=== PATIENT | female | born 1940 | race Caucasian/White ===

== ENCOUNTER 2016-08-15 07:31 | Emergency (ER) | payer MEDICARE, BC, MEDICAID ==
--- NOTE | 2016-08-15 08:10 | EDM.PDOC ---
ED HPI GENERAL MEDICAL PROBLEM - General Chief Complaint: Respiratory Problem Stated Complaint: SHORTNESS OF BREATH Time Seen by Provider: 08/15/16 08:00 Source of Information: Reports: Patient, RN Notes Reviewed History Limitations: Reports: No Limitations - History of Present Illness INITIAL COMMENTS - FREE TEXT/NARRATIVE: 75-year-old female presents emergency department day complaint of shortness of breath, she has a known history of lung mass suspicious for neoplasm however no pathology has been obtained she has elected to proceed nonintervention. Does have a known history of congestive heart failure as well. She states that last night she awoke feeling very short of breath she's had difficulty maintaining her breath this morning as well denies any fevers cough sputum production chest. Nausea or vomiting - Related Data Allergies Allergy/AdvReac Type Severity Reaction Status Date / Time cephalexin monohydrate Allergy Seizure Verified 08/15/16 07:40 [From Keflex] esomeprazole [From Nexium] Allergy Cannot Verified 08/15/16 07:40 Remember Home Meds: Home Meds ALPRAZolam [Alprazolam] 1 mg PO TID 07/23/14 [History] Amitriptyline HCl 50 mg PO BEDTIME 07/23/14 [History] Aspirin [Adult Low Dose Aspirin EC] 81 mg PO DAILY 07/23/14 [History] Carvedilol [Coreg] 6.25 mg PO BIDMEALS 07/23/14 [History] Cholecalciferol (Vitamin D3) [Vitamin D3] 5,000 unit PO DAILY 07/23/14 [History] Enalapril Maleate 2.5 mg PO BEDTIME 07/23/14 [History] Fluticasone/Salmeterol [Advair 100-50] 1 puff IH BID 07/23/14 [History] Folic Acid 1 mg PO DAILY 07/23/14 [History] Insulin Glarg,Human.Rec.Analog [Lantus] 40 units SQ BEDTIME 07/23/14 [History] Levothyroxine [Levothroid] 137 mcg PO DAILY 07/23/14 [History] Omeprazole 20 mg PO DAILY 07/23/14 [History] Ranitidine HCl [Zantac] 150 mg PO BID 07/23/14 [History] Simvastatin [Zocor] 20 mg PO BEDTIME 07/23/14 [History] Sotalol [Betapace] 80 mg PO BID 07/23/14 [History] Spironolactone [Aldactone] 25 mg PO DAILY 07/23/14 [History] Sucralfate [Carafate] 1 gm PO TID 07/23/14 [History] Nitrofurantoin Macrocrystal [Nitrofurantoin] 50 mg PO DAILY 10/20/15 [History] Venlafaxine HCl [Venlafaxine ER] 75 mg PO DAILY 10/20/15 [History] Past Medical History HEENT History: Reports: Cataract, Hard of Hearing Cardiovascular History: Reports: Arrhythmia, Automatic Implantable Cardioverter Defibrillators, CAD, Heart Failure, High Cholesterol, Hypertension, OR, Pacemaker, SOB on Exertion Other Cardiovascular History: defibulater Respiratory History: Reports: Asthma, COPD, Pneumonia, Recurrent, Sleep Apnea, SOB Other Respiratory History: oxygen at bedtime Gastrointestinal History: Reports: Cholelithiasis, Chronic Constipation, GERD Genitourinary History: Reports: Chronic Renal Insuffiency, Urinary Incontinence 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: Musculoskeletal History: Reports: Arthritis, Back Pain, Chronic, Fracture Neurological History: Reports: CVA, Vertigo Psychiatric History: Reports: Anxiety, Depression, Panic Attack Endocrine/Metabolic History: Reports: Diabetes, Type II, Hypothyroidism, Obesity /BMI 30+ Oncologic (Cancer) History: Reports: Lung Other Oncologic History: mass - Infectious Disease History Infectious Disease History: Reports: C-Difficile - Past Surgical History HEENT Surgical History: Reports: Cataract Surgery Cardiovascular Surgical History: Reports: Percutaneous Transluminal Angioplasty GI Surgical History: Reports: Colonoscopy, Hernia Repair/Other Female Surgical History: Reports: Hysterectomy Neurological Surgical History: Reports: None Social & Family History - Family History Cardiac: Reports: CAD, Hypertension Respiratory: Reports: COPD : Reports: Nephritis Musculoskeletal: Reports: Arthritis - Tobacco Use Smoking Status *Q: Former Smoker Years of Tobacco use: 40 Packs/Tins Daily: 1 Used Tobacco, but Quit: Yes Month Tobacco Last Used: 10 years ago Second Hand Smoke Exposure: No - Caffeine Use Caffeine Use: Reports: Soda Other Caffeine Use: 1 pot coffee per day - Alcohol Use Days Per Week of Alcohol Use: 0 - Recreational Drug Use Recreational Drug Use: No ED ROS GENERAL - Review of Systems Review Of Systems: See Below Constitutional: Denies: Fever, Chills, Diaphoresis HEENT: Reports: No Symptoms Respiratory: Reports: Shortness of Breath. Denies: Cough, Sputum, Hemoptysis Cardiovascular: Reports: Dyspnea on Exertion. Denies: Chest Pain GI/Abdominal: Reports: No Symptoms : Reports: No Symptoms Musculoskeletal: Reports: No Symptoms Skin: Reports: No Symptoms Neurological: Reports: No Symptoms ED EXAM, GENERAL - Physical Exam Exam: See Below Free Text/Narrative:: General: Female, not in any distress, alert and oriented x3 HEENT: head is atraumatic normocephalic, eyes pupils equal round reactive to light, sclera clear no conjunctivitis appreciated. Ears tympanic membranes clear and haro landmarks and light reflex are present bilaterally canals are clear. Nose no septal deviation, nares are clear, no blood present. Mouth mucosa is moist and pink no erythema or exudate noted in soft palate, tongue is midline uvula is midline, dentition is intact. Neck: Supple no thyromegaly no tracheal deviation. Nodes: Cervical nodes subclavicular nodes nontender no palpable lymphadenopathy noted. Lungs: Breath sounds are distant on appreciate any adventitious noises CV: Regular rate and rhythm S1 and S2 appreciated no murmurs rubs or gallops noted. Abdomen: Soft, nontender, no palpable masses or organomegaly appreciated, no distention no guarding bowel sounds are present, . Neuro: Cranial nerves II through XII grossly intact Skin: Warm and dry, intact Extremities: No lower extremity edema appreciated, pedal pulse is +2. Course - Vital Signs Last Recorded V/S: Last Vital Signs Temp 98.3 F 08/15/16 07:39 Pulse 84 08/15/16 08:38 Resp 17 08/15/16 08:38 BP 137/78 08/15/16 08:38 Pulse Ox 91 L 08/15/16 08:38 - Orders/Labs/Meds Orders: Active Orders 24 hr Category Date Time Status Cardiac Monitoring [RC] .As Directed Care 08/15/16 08:07 Active EKG Documentation Completion [RC] ASDIRECTED Care 08/15/16 08:07 Active EKG 12 Lead [EK] Stat Ther 08/15/16 08:07 Ordered Labs: Laboratory Tests 08/15/16 08/15/16 Range/Units 08:21 08:21 WBC 5.1 (4.5-11.0) K/uL RBC 4.08 (3.30-5.50) M/uL Hgb 12.3 (12.0-15.0) g/dL Hct 35.6 L (36.0-48.0) % MCV 87 (80-98) fL MCH 30 (27-31) pg MCHC 35 (32-36) % Plt Count 184 (150-400) K/uL Neut % (Auto) 71 H (36-66) % Lymph % (Auto) 12 L (24-44) % Spencer % (Auto) 11 H (2-6) % Eos % (Auto) 5 H (2-4) % Baso % (Auto) 1 (0-1) % Sodium 130 L (140-148) mmol/L Potassium 4.3 (3.6-5.2) mmol/L Chloride 93 L (100-108) mmol/L Carbon Dioxide 28 (21-32) mmol/L Anion Gap 13.3 (5.0-14.0) mmol/L BUN 10 (7-18) mg/dL Creatinine 1.0 (0.6-1.0) mg/dL Est Cr Clr Drug Dosing 35.99 mL/min Estimated GFR (MDRD) 54 L (>60) Glucose 205 H (74-106) mg/dL Calcium 8.6 (8.5-10.1) mg/dL Total Bilirubin 0.4 (0.2-1.0) mg/dL AST 24 (15-37) U/L ALT 22 (12-78) U/L Alkaline Phosphatase 77 (46-116) U/L Troponin I < 0.017 (0.000-0.056) ng/mL Etc-I-Ziorwnhhajv Pept 169 H (5-125) pg/mL Total Protein 7.9 (6.4-8.2) g/dL Albumin 3.0 L (3.4-5.0) g/dL Globulin 4.9 H (2.3-3.5) g/dL Albumin/Globulin Ratio 0.6 L (1.2-2.2) Departure - Departure Time of Disposition: 09:17 Disposition: Home, Self-Care 01 Condition: Good Clinical Impression: Anxiety - Discharge Information Forms: ED Department Discharge Additional Instructions: Use Xanax as needed for whenever you feel extremely short of breath and your anxiety is elevated, Please followup with your primary care provider in 3-5 days if not better, please call return to the emergency department with worsening of symptoms. - My Orders Last 24 Hours: My Active Orders 08/15/16 08:07 Cardiac Monitoring [RC] .As Directed EKG Documentation Completion [RC] ASDIRECTED EKG 12 Lead [EK] Stat - Assessment/Plan Last 24 Hours: My Active Orders 08/15/16 08:07 Cardiac Monitoring [RC] .As Directed EKG Documentation Completion [RC] ASDIRECTED EKG 12 Lead [EK] Stat Plan: Assessment Acuity = acute Site and laterality = dyspnea complicated patient with history of chronic obstructive pulmonary disease, coronary artery disease, lung mass probable malignancy and anxiety Etiology = suspicious for panic attack Manifestations = none Location of injury = home Lab values = CBC unremarkable, sodium low at 1:30 consistent hyponatremia BNP mildly elevated 169 troponin is negative albumin low at 3.0 consistent hypoalbuminemia, EKG demonstrates a sinus rhythm no significant ST changes, chest x-ray does show expanding mass otherwise no acute process Plan I did review lab results EKG and chest x-ray results with her she does use Xanax at home will add additional Xanax that she can use on as-needed basis when she feels short of breath Patient was in agreement with the plan all questions were answered, they were instructed to return to the emergency department or call for worsening symptoms. This note was dictated using [facility] voice recognition software please call with any questions.
[2016-08-15 08:40] VITALS: BP 137/78
--- NOTE | 2016-08-15 08:59 | CR ---
Chest 2V HISTORY: Short of breath COMPARISON: 02/11/2016 FINDINGS: Right upper lobe lung mass has increased in size now measuring approximately 4.5 cm in jennifer meter. No acute infiltrate is identified. Mild cardiomegaly is stable. Atherosclerotic aorta is rede monstrated. No vascular redistribution or pleural fluid is seen. AV sequential pacemaker/AICD is sta ble. IMPRESSION: Interval increase in size of right upper lobe lung mass suspicious for malignancy. Mild cardiomegaly without evidence for decompensation. Stable pacemaker/AICD and lead wires. No other acu te chest abnormality or significant interval change is identified.
== END 2016-08-15 09:28 | disposition home or self-care (01) ==
LOC: JP.ED 07:31
DX: F41.9 Anxiety disorder, unspecified (principal); I12.9 Hypertensive chronic kidney disease with stage 1 through stage 4 chronic kidney disease, or unspecified chronic kidney disease; N18.9 Chronic kidney disease, unspecified; J45.909 Unspecified asthma, uncomplicated; J44.9 Chronic obstructive pulmonary disease, unspecified; K21.9 Gastro-esophageal reflux disease without esophagitis; E11.9 Type 2 diabetes mellitus without complications; I25.2 Old myocardial infarction; E03.9 Hypothyroidism, unspecified; E66.9 Obesity, unspecified; Z98.890 Other specified postprocedural states; Z86.73 Personal history of transient ischemic attack (TIA), and cerebral infarction without residual deficits; Z90.710 Acquired absence of both cervix and uterus; Z79.4 Long term (current) use of insulin; Z79.899 Other long term (current) drug therapy; Z79.82 Long term (current) use of aspirin; Z88.1 Allergy status to other antibiotic agents; Z88.8 Allergy status to other drugs, medicaments and biological substances
CPT/HCPCS: 36415; 71020; 71020-26; 80053; 83880; 84484; 85025; 93005; 93010; 99283; 99285-25

== ENCOUNTER 2016-11-25 07:31 | Inpatient (IN) | payer MEDICARE, BC, MEDICAID ==
[2016-11-25] MEDS ORDERED: Rocuronium 50 MG/5 ML Vial ONE (07:44)
[2016-11-25] MEDS ORDERED: Ondansetron 4 MG/2 ML SDV ONE (07:44)
[2016-11-25] MEDS ORDERED: Neostigmine Methylsulfate 1 MG/ML 5 ML Syringe ONE (07:44)
[2016-11-25] MEDS ORDERED: Succinylcholine 200 MG/10 ML MDV ONE (07:44)
[2016-11-25] MEDS ORDERED: Dexamethasone 4 MG/ML SDV ONE (07:44)
[2016-11-25] MEDS ORDERED: Glycopyrrolate 0.2 MG/ML 5 ML MDV ONE (07:44)
[2016-11-25] MEDS ORDERED: Propofol 200 MG/20 ML SDV ONE (07:44)
[2016-11-25] MEDS ORDERED: Heparin Sodium 5,000 Units/ML Vial ONE (07:45)
[2016-11-25] MEDS ORDERED: Gabapentin 100 MG Cap PO ONE (07:45)
[2016-11-25] MEDS ORDERED: Lidocaine 1% 2 ML ONE (07:45)
[2016-11-25] MEDS ORDERED: Albuterol 0.083% 2.5 MG/3 ML Neb Soln ONE (07:55)
[2016-11-25] MEDS ORDERED: Naloxone 0.4 MG/ML SDV IVPUSH PRN (09:00)
[2016-11-25] MEDS ORDERED: Scopolamine 1.5 MG Transdermal Patch TOP SCH (09:00)
[2016-11-25] MEDS ORDERED: Dextrose 5%-0.9% NaCl 1,000 ML IV SCH (09:15)
[2016-11-25] MEDS ORDERED: Lactated Ringers 1,000 ML ONE (09:23)
[2016-11-25] MEDS ORDERED: Lidocaine 2% Viscous Solution 15 ML Cup ONE (09:49)
[2016-11-25] MEDS ORDERED: Albuterol/Ipratropium 3.0-0.5 MG/3 ML Neb Soln NEB ONE (10:00)
[2016-11-25] MEDS ORDERED: Levofloxacin/Dextrose 5%-Water 500 MG in Premix Bag 1 BAG IV ONE (10:00)
[2016-11-25] MEDS ORDERED: Dextrose 5%-Lactated Ringers 1,000 ML IV SCH (10:00)
[2016-11-25] MEDS ORDERED: Meropenem 500 MG SDV IRR ONE (11:40)
[2016-11-25] MEDS ORDERED: Bupivacaine 0.5%/EPINEPHrine 1:200,000 50 ML MDV INJECT ONE (12:00)
[2016-11-25] MEDS ORDERED: Bupivacaine 0.5%/EPINEPHrine 1:200,000 50 ML MDV ONE (12:03)
[2016-11-25] MEDS ORDERED: Sodium Chloride 0.9% 10 ML ONE (12:03)
[2016-11-25] MEDS ORDERED: Meropenem 500 MG SDV ONE (12:03)
[2016-11-25] MEDS ORDERED: Insulin Aspart 100 Units/ML 3 ML Pen SUBCUT SCH (12:45)
--- NOTE | 2016-11-25 14:04 | CR ---
Chest 1V Frontal INDICATION: PLACEMENT TLSC AND CHEST TUBE RIGHT SIDE COMPARISON: CT chest previous day FINDINGS: Single AP portable chest. Right thoracotomy. Small right apical pneumothorax. Chest tubes in place. Skin priscila. No other jackson ge in the chest.
[2016-11-25] MEDS ORDERED: diphenhydrAMINE 50 MG/ML SDV IVPUSH PRN (14:05)
[2016-11-25] MEDS ORDERED: Glucose Gel 15 GM in 37.5 GM Tube PO PRN (14:07)
[2016-11-25] MEDS ORDERED: Glucagon,Human Recombinant 1 MG Vial IM PRN (14:07)
[2016-11-25] MEDS ORDERED: 50% Dextrose in Water 50 ML Syringe IVPUSH PRN (14:07)
[2016-11-25] MEDS ORDERED: Albuterol/Ipratropium 3.0-0.5 MG/3 ML Neb Soln INH PRN (14:13)
[2016-11-25] MEDS: Sodium Chloride 0.9% 1,000 ML IV SCH (14:43)
[2016-11-25] MEDS: fentaNYL 2,500 MCG in Sodium Chloride 0.9% 200 ML EPIDUR SCH (15:07)
[2016-11-25] MEDS: VERIFY SCOP PATCH TOP SCH (15:26)
[2016-11-25] MEDS: Pantoprazole 40 MG Vial IV SCH (15:34)
[2016-11-25] MEDS: Albuterol/Ipratropium 3.0-0.5 MG/3 ML Neb Soln INH SCH ×2 (15:34→21:04)
[2016-11-25] MEDS: Heparin Sodium 5,000 UNITS in Sodium Chloride 0.9% 500 ML IV SCH (16:12)
[2016-11-25] MEDS: Insulin Aspart 100 Units/ML 3 ML Pen SUBCUT PRN ×2 (17:15→21:02)
[2016-11-25] MEDS ORDERED: Lactated Ringers 500 ML IV SCH (17:15)
[2016-11-25] MEDS: DEXTROSE IV SCH (18:19)
[2016-11-25] MEDS: NACL IV SCH (18:19)
[2016-11-25] MEDS: NALOXONE IV SCH (18:19)
[2016-11-25] MEDS ORDERED: Heparin Sodium 5,000 UNITS in Sodium Chloride 0.9% 500 ML IV SCH (18:30)
[2016-11-25] MEDS: Ondansetron 4 MG/2 ML SDV IV PRN (20:25)
[2016-11-25] MEDS ORDERED: Insulin Detemir 100 Units/ML 3 ML Pen SUBCUT ONE (21:00)
[2016-11-25] MEDS: Spironolactone 25 MG Tab PO SCH (21:04)
[2016-11-25] MEDS: Sotalol 80 MG Tab PO SCH (21:05)
[2016-11-25] MEDS: Enalapril 5 MG Tab PO SCH (21:06)
[2016-11-25] MEDS: Carvedilol 6.25 MG Tab PO SCH (21:06)
[2016-11-25] MEDS: Gabapentin 100 MG Cap PO SCH (21:06)
[2016-11-25] MEDS: ADVAIR INH SCH (21:07)
[2016-11-26] MEDS: Sodium Chloride 0.9% 1,000 ML IV SCH ×2 (03:18→16:32)
[2016-11-26] MEDS: NACL IV SCH ×2 (04:13→15:14)
[2016-11-26] MEDS: DEXTROSE IV SCH ×2 (04:13→15:14)
[2016-11-26] MEDS: NALOXONE IV SCH ×2 (04:13→15:14)
[2016-11-26] MEDS: ADVAIR INH SCH ×2 (07:15→20:54)
[2016-11-26] MEDS: Albuterol/Ipratropium 3.0-0.5 MG/3 ML Neb Soln INH SCH ×4 (07:15→20:52)
[2016-11-26] MEDS: Levothyroxine 100 MCG, Levothyroxine 25 MCG PO SCH ×2 (07:40)
[2016-11-26] MEDS ORDERED: Lactated Ringers 500 ML IV SCH ×2 (09:00→13:30)
[2016-11-26] MEDS: Aspirin 81 MG Tab.EC PO SCH (09:04)
[2016-11-26] MEDS: Docusate Sodium 100 MG Cap PO SCH ×2 (09:04→20:53)
[2016-11-26] MEDS: Venlafaxine 75 MG Cap.ER PO SCH (09:04)
[2016-11-26] MEDS: VERIFY SCOP PATCH TOP SCH (09:05)
[2016-11-26] MEDS: Carvedilol 6.25 MG Tab PO SCH ×2 (09:07→15:15)
[2016-11-26] MEDS: Sotalol 80 MG Tab PO SCH ×3 (09:07→20:53)
[2016-11-26] MEDS: Magnesium Sulfate/Water 2 GM in Premix Bag 1 BAG IV SCH ×3 (09:12→21:02)
[2016-11-26] MEDS: Levofloxacin/Dextrose 5%-Water 500 MG in Premix Bag 1 BAG IV SCH (10:25)
[2016-11-26] MEDS: Insulin Aspart 100 Units/ML 3 ML Pen SUBCUT PRN ×3 (12:11→20:49)
[2016-11-26] MEDS: Pantoprazole 40 MG Vial IV SCH (15:17)
[2016-11-26] MEDS: fentaNYL 2,500 MCG in Sodium Chloride 0.9% 200 ML EPIDUR SCH (15:26)
[2016-11-26] MEDS: LORazepam 2 MG/ML MDV IVPUSH PRN ×2 (17:04→21:01)
[2016-11-26] MEDS ORDERED: Bumetanide 1 MG/4 ML MDV IVPUSH ONE (17:20)
[2016-11-26] MEDS ORDERED: Dextrose 5%-0.9% NaCl 1,000 ML IV SCH (17:20)
--- NOTE | 2016-11-26 17:23 | PCM.CONS ---
H&P History of Present Illness - General Date of Service: 11/26/16 Source of Information: Patient, Provider History Limitations: Reports: No Limitations - History of Present Illness Initial Comments - Free Text/Narative: Ruthie was admitted yesterday for a thoracotomy and resection of a mass in her right lung. She was stable through the night other than some low urine output. I was asked to see her this afternoon by Dr. Mckeon regarding shortness of breath and tachycardia. She reports that she feels terrible and cannot breathe. On further questioning she reports her shortness of breath is about what it normally is at home. She does not have any chest pain. She is complaining of some moderate sharp pain in her right shoulder blade area. This radiates throughout the middle of her back. Pain medications help a little bit. Moving around makes the pain worse. She has had some low-grade temperature elevations but no fevers. She has a loose sounding cough but has not produce much sputum. She has a history of congestive heart failure but has not been on diuretics recently though she has noticed some increasing peripheral edema. Lower Back Pain Score (Numeric/FACES): 4 - Related Data Allergies/Adverse Reactions: Allergies Allergy/AdvReac Type Severity Reaction Status Date / Time cephalexin monohydrate Allergy Seizure Verified 11/25/16 09:02 [From Keflex] esomeprazole [From Nexium] AdvReac Diarrhea Verified 11/25/16 14:14 Home Medications: Home Meds ALPRAZolam [Alprazolam] 1 mg PO TID 07/23/14 [History] Amitriptyline HCl 50 mg PO BEDTIME 07/23/14 [History] Aspirin [Adult Low Dose Aspirin EC] 81 mg PO DAILY 07/23/14 [History] Carvedilol [Coreg] 6.25 mg PO BIDMEALS 07/23/14 [History] Cholecalciferol (Vitamin D3) [Vitamin D3] 5,000 unit PO DAILY 07/23/14 [History] Enalapril Maleate 2.5 mg PO BEDTIME 07/23/14 [History] Fluticasone/Salmeterol [Advair 100-50] 1 puff IH BID 07/23/14 [History] Folic Acid 1 mg PO DAILY 07/23/14 [History] Insulin Glarg,Human.Rec.Analog [Lantus] 40 units SQ BEDTIME 07/23/14 [History] Levothyroxine [Levothroid] 125 mcg PO DAILY 07/23/14 [History] Omeprazole 20 mg PO DAILY 07/23/14 [History] Ranitidine HCl [Zantac] 150 mg PO BID 07/23/14 [History] Simvastatin [Zocor] 20 mg PO BEDTIME 07/23/14 [History] Sotalol [Betapace] 80 mg PO BID 07/23/14 [History] Spironolactone [Aldactone] 25 mg PO DAILY 07/23/14 [History] Sucralfate [Carafate] 1 gm PO TID 07/23/14 [History] Nitrofurantoin Macrocrystal [Nitrofurantoin] 50 mg PO .MOWEDFRI 10/20/15 [ History] Venlafaxine HCl [Venlafaxine ER] 75 mg PO DAILY 10/20/15 [History] Albuterol [IJP: Ventolin HFA] 1 - 2 puff PO Q4H PRN 11/24/16 [History] Gabapentin [Neurontin] 100 mg PO BEDTIME 11/24/16 [History] Ondansetron [Zofran ODT] 4 mg PO Q8H PRN 11/24/16 [History] Polyethylene Glycol 3350 [Miralax] 17 gm PO DAILY 11/24/16 [History] Promethazine [Phenergan] 25 mg PO Q8H PRN 11/24/16 [History] Past Medical History HEENT History: Reports: Cataract, Hard of Hearing Cardiovascular History: Reports: Arrhythmia, Automatic Implantable Cardioverter Defibrillators, CAD, Heart Failure, High Cholesterol, Hypertension, MA, Pacemaker, SOB on Exertion Other Cardiovascular History: defibulater Respiratory History: Reports: Asthma, Bronchitis, Recurrent, COPD, Pneumonia, Recurrent, Sleep Apnea, SOB Other Respiratory History: oxygen at bedtime, mass in right lung Gastrointestinal History: Reports: Cholelithiasis, Chronic Constipation, GERD Genitourinary History: Reports: Chronic Renal Insuffiency, Urinary Incontinence 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: Musculoskeletal History: Reports: Arthritis, Back Pain, Chronic, Fracture, Other (See Below) Other Musculoskeletal History: bilateral leg weakness Neurological History: Reports: CVA, Vertigo Psychiatric History: Reports: Anxiety, Depression, Panic Attack Endocrine/Metabolic History: Reports: Diabetes, Type II, Hypothyroidism, Obesity /BMI 30+ Oncologic (Cancer) History: Reports: Lung Other Oncologic History: mass - Infectious Disease History Infectious Disease History: Reports: C-Difficile - Past Surgical History HEENT Surgical History: Reports: Cataract Surgery Cardiovascular Surgical History: Reports: Pacer, Percutaneous Transluminal Angioplasty Respiratory Surgical History: Reports: None GI Surgical History: Reports: Colonoscopy, Hernia Repair/Other Female Surgical History: Reports: Hysterectomy Neurological Surgical History: Reports: None Musculoskeletal Surgical History: Reports: None Oncologic Surgical History: Reports: None Social & Family History - Family History Cardiac: Reports: CAD, Hypertension Respiratory: Reports: COPD : Reports: Nephritis Musculoskeletal: Reports: Arthritis - Tobacco Use Smoking Status *Q: Former Smoker Years of Tobacco use: 60 Packs/Tins Daily: 1 Used Tobacco, but Quit: Yes Month Tobacco Last Used: february Second Hand Smoke Exposure: No - Caffeine Use Caffeine Use: Reports: Soda Other Caffeine Use: 1 pot coffee per day - Alcohol Use Days Per Week of Alcohol Use: 0 - Recreational Drug Use Recreational Drug Use: No H&P Review of Systems - Review of Systems: Review Of Systems: See Below Free Text/Narrative: A complete 12 point review of systems was obtained. Pertinent positives and negatives are noted in the history of present illness. All other systems were reviewed and were negative except as noted. Exam - Exam Exam: See Below - Vital Signs Vital Signs: Last Vital Signs Temp 37.6 C 11/26/16 17:00 Pulse 94 11/26/16 15:14 Resp 22 H 11/26/16 17:00 BP 102/69 11/26/16 17:00 Pulse Ox 93 L 11/26/16 17:00 Weight: 93.894 kg - Exam Quality Assessment: Supplemental Oxygen General: Alert, Oriented, Cooperative. No: Mild Distress HEENT: Conjunctiva Clear, Mucosa Moist & Mulga. No: Scleral Icterus Neck: Supple, Trachea Midline Lungs: Normal Respiratory Effort, Rhonchi (diffuse). No: Wheezing Cardiovascular: Regular Rhythm, Tachycardia. No: Systolic Murmur GI/Abdominal Exam: Normal Bowel Sounds, Soft, Non-Tender, No Distention Extremities: No Pedal Edema. No: Increased Warmth Peripheral Pulses: 2+: Dorsalis Pedis (L), Dorsalis Pedis (R) Skin: Warm, Dry Neuro Extensive - Mental Status: Alert, Oriented x3, Nl Response to Commands Neuro Extensive - Motor, Sensory, Reflexes: CN II-XII Intact. No: Dysarthria, Abnormal Motor, Tremor Psychiatric: Alert, Normal Affect - Patient Data Lab Results Last 24 hrs: Laboratory Results - last 24 hr 11/26/16 11/26/16 11/26/16 Range/Units 04:00 04:00 04:00 WBC 10.1 (4.5-11.0) K/uL RBC 3.54 (3.30-5.50) M/uL Hgb 10.5 L (12.0-15.0) g/dL Hct 32.1 L (36.0-48.0) % MCV 91 (80-98) fL MCH 30 (27-31) pg MCHC 33 (32-36) % Plt Count 156 (150-400) K/uL Puncture Site A-line ABG pH 7.321 L (7.350-7.450) ABG pCO2 43.9 H (35.0-42.0) mmHg ABG pO2 75.9 (75.0-100.0) mmHg ABG HCO3 22.0 (22.0-26.0) mmol/L ABG Total CO2 20.7 L (21.0-25.0) mmol/L ABG O2 Saturation 95.2 (95.0-98.0) % ABG O2 Content 13.6 L (15.0-23.0) %vol ABG Base Excess -3.4 mm/L ABG Hemoglobin 10.4 L (12.0-16.0) g/dL ABG Oxyhemoglobin 92.4 % ABG Carboxyhemoglobin 2.3 H (0.0-1.6) % ABG Methemoglobin 0.6 % Mo Test A-line O2 Delivery Device Nasal cannula Oxygen Flow Rate 1 L Sodium 133 L (140-148) mmol/L Potassium 4.9 (3.6-5.2) mmol/L Chloride 102 (100-108) mmol/L Carbon Dioxide 25 (21-32) mmol/L Anion Gap 10.9 (5.0-14.0) mmol/L BUN 12 (7-18) mg/dL Creatinine 0.9 (0.6-1.0) mg/dL Est Cr Clr Drug Dosing 39.99 mL/min Estimated GFR (MDRD) > 60 (>60) Glucose 217 H (74-106) mg/dL Calcium 7.2 L D (8.5-10.1) mg/dL Phosphorus 3.4 (2.5-4.9) mg/dL Magnesium 1.6 L (1.8-2.4) mg/dL NT-Pro-B Natriuret Pep 357 H (5-125) pg/mL Result Diagrams: 11/26/16 04:00 11/26/16 04:00 David Results Last 24 hrs: Microbiology 11/25/16 11:15 Gram Stain - Final Bronchial Washings - Right Upper Lobe Respiratory Culture - Preliminary ORAL CONTAMINATION 1 DAY Imaging Impressions Last 24 hrs: CXR - images personally reviewed - poor inspiration with portable exam. right sided chest tube. increased density on the right compared to the left. subclavian catheter noted. No obvious infiltrate or effusion. Consult PN Assessment/Plan POD#: 1 Procedures: Procedures AIRWAY INHALATION TREATMENT (02/11/16) ASSAY OF CK (CPK) (01/27/16) ASSAY OF LACTIC ACID (01/27/16) ASSAY OF NATRIURETIC PEPTIDE (08/15/16) ASSAY OF TROPONIN QUANT (08/15/16) BLOOD CULTURE FOR BACTERIA (01/27/16) C-REACTIVE PROTEIN (01/27/16) CATARACT SURG W/IOL 1 STAGE (10/22/15) CHEST X-RAY 2VW FRONTAL&LATL (08/15/16) CINE/VID X-RAY THROAT/ESOPH (12/10/14) COMPLETE CBC W/AUTO DIFF WBC (08/15/16) COMPREHEN METABOLIC PANEL (08/15/16) CT ANGIOGRAPHY CHEST (08/05/15) CULTURE SCREEN ONLY (12/05/14) EGD BIOPSY SINGLE/MULTIPLE (12/05/14) ELECTROCARDIOGRAM TRACING (08/15/16) EMERGENCY DEPT VISIT (08/15/16) EMERGENCY DEPT VISIT (02/11/16) EMERGENCY DEPT VISIT (01/27/16) EMERGENCY DEPT VISIT (07/23/14) EMERGENCY DEPT VISIT (07/23/14) EMERGENCY DEPT VISIT (02/01/14) EMERGENCY DEPT VISIT (11/17/13) EMERGENCY DEPT VISIT (11/17/13) FIBRIN DEGRADATION QUANT (08/05/15) GLUCOSE BLOOD TEST (01/27/16) METABOLIC PANEL TOTAL CA (01/27/16) MOTION FLUOROSCOPY/SWALLOW (12/10/14) ROUTINE VENIPUNCTURE (08/15/16) THER/PROPH/DIAG IV INF ADDON (01/27/16) THER/PROPH/DIAG IV INF INIT (01/27/16) TTE W/DOPPLER COMPLETE (02/12/15) URINALYSIS AUTO W/SCOPE (01/27/16) URINE CULTURE/COLONY COUNT (01/27/16) (1) CHF (congestive heart failure) SNOMED Code(s): 47491509 Code(s): I50.9 - HEART FAILURE, UNSPECIFIED Current Visit: Yes Qualifiers: Congestive heart failure type: unspecified congestive heart failure type Congestive heart failure chronicity: acute on chronic Qualified Code(s): I50.9 - Heart failure, unspecified (2) IDDM (insulin dependent diabetes mellitus) SNOMED Code(s): 55035361 Code(s): E11.9 - TYPE 2 DIABETES MELLITUS WITHOUT COMPLICATIONS; Z79.4 - RECOVERER (CURRENT) USE OF INSULIN Current Visit: Yes (3) Cancer of lung SNOMED Code(s): 772703037 Code(s): C34.90 - MALIGNANT NEOPLASM OF UNSP PART OF UNSP BRONCHUS OR LUNG Current Visit: No Qualifiers: Laterality: right Lung location: unspecified part of lung Qualified Code( s): C34.91 - Malignant neoplasm of unspecified part of right bronchus or lung Problem List Initiated/Reviewed/Updated: Yes My Orders Last 24 Hours: My Active Orders 11/26/16 17:20 Bumetanide [Bumex] 1 mg IVPUSH ONETIME ONE Dextrose 5%-0.9% NaCl [Dextrose 5%-Normal Saline] 1,000 ml IV ASDIRECTED 11/27/16 17:30 Sodium Chloride 0.9% [Normal Saline] 1,000 ml IV ASDIRECTED Plan: ASSESSMENT AND PLAN - Right lung mass is status post thoracotomy and resection 11/25 - pain fairly well controlled at this point. Oxygen requirement is mild at this time. She has an epidural for pain control. -Postop cares per Dr. Mckeon Congestive heart failure - history of heart failure, ejection fraction unknown at this time. History and examination are consistent with mild volume overload at this time. -Cardiac monitoring -1 mg of bumetanide -Continue medical management -Supplement oxygen -Intake and output monitoring -Consider echocardiogram COPD - no evidence for acute exacerbation at this time. -Continue current respiratory treatments Insulin-dependent diabetes - sugars have been tolerable so far. -Continue current management Vel Simmons M.D. Requesting Provider: Dr Mckeon Date Consult Requested: 11/26/16 Reason for Consult: hypoxia, possible chf Patient History Reviewed: Yes Admission H&P Reviewed: No (not available) Notified Requestor: No Time Spent (in minutes): 45
[2016-11-26] MEDS: Ondansetron 4 MG/2 ML SDV IV PRN (17:53)
[2016-11-26] MEDS: Spironolactone 25 MG Tab PO SCH (20:53)
[2016-11-26] MEDS: Enalapril 5 MG Tab PO SCH (20:54)
[2016-11-26] MEDS: Gabapentin 100 MG Cap PO SCH (20:54)
[2016-11-27] MEDS: Magnesium Sulfate/Water 2 GM in Premix Bag 1 BAG IV SCH ×4 (03:57→21:35)
[2016-11-27] MEDS: ADVAIR INH SCH ×2 (07:06→21:03)
[2016-11-27] MEDS: Albuterol/Ipratropium 3.0-0.5 MG/3 ML Neb Soln INH SCH ×4 (07:06→21:34)
[2016-11-27] MEDS ORDERED: Bumetanide 1 MG/4 ML MDV IVPUSH SCH (08:00)
[2016-11-27] MEDS: Docusate Sodium 100 MG Cap PO SCH ×2 (08:03→21:35)
[2016-11-27] MEDS: Aspirin 81 MG Tab.EC PO SCH (08:04)
[2016-11-27] MEDS: Venlafaxine 75 MG Cap.ER PO SCH (08:04)
[2016-11-27] MEDS: Sotalol 80 MG Tab PO SCH ×2 (08:04→21:03)
[2016-11-27] MEDS: Acetylcysteine 20% 200 MG/ML 4 ML Nebulizer Soln SDV INH SCH ×2 (08:05→21:34)
[2016-11-27] MEDS: Levothyroxine 100 MCG, Levothyroxine 25 MCG PO SCH ×2 (08:05)
[2016-11-27] MEDS: Insulin Aspart 100 Units/ML 3 ML Pen SUBCUT PRN ×4 (08:15→21:49)
[2016-11-27] MEDS: VERIFY SCOP PATCH TOP SCH (08:19)
--- NOTE | 2016-11-27 09:09 | PN ---
DATE OF SERVICE: 11/26/2016 The patient has been afebrile with stable vital signs overnight. Urine output has just been satisfactory. Her respiratory status appears to be satisfactory. No cardiac arrhythmias or other problems in that regard have been noted. Her CVP is running in the 5 to 8 range. She is, otherwise, alert and appropriately communicative. Pain control appears to be fairly good with the epidural catheter in place. Labs show hemoglobin 10.5. Arterial blood gases this morning showed pH of 7.32, PCO2 of 43, and PO2 of 75, on 1 L nasal cannula. Chest x- ray shows quite a bit in the way of shift of the mediastinum toward the right, which almost allows for complete filling of the apical airspace. Chest tube output was around 300 mL. Blood sugar control has been reasonably good, and her magnesium is somewhat low. BNP remains on the low side at 357. Overall, she appears to be doing well. We will continue the present IV rate. We will be cautious in terms of following her CVP. If it creeps up, then we need to back down on the IV rate. Otherwise, we will maximize activity and work with pulmonary toilet. We will hold off on any significant oral intake other than meds today. Stanislaw Mckeon MD /[id number]
[2016-11-27] MEDS: Levofloxacin/Dextrose 5%-Water 500 MG in Premix Bag 1 BAG IV SCH (09:41)
--- NOTE | 2016-11-27 10:05 | PCM.CONSN ---
- General Info Date of Service: 11/27/16 Functional Status: Reports: Pain Controlled - Review of Systems General: Reports: Weakness Pulmonary: Reports: Shortness of Breath, Cough Cardiovascular: Denies: Chest Pain Musculoskeletal: Reports: Shoulder Pain Systems Review Comment:: No acute events overnight. She continues to require supplemental oxygen. Continues to have mild right shoulder pain at rest and moderate to moderately severe pain with activity. Mucomyst nebs initiated this morning to help improve the efficiency of her cough with good results so far. Urine output has been good. She continues to report that she feels crummy and feels very short of breath though oxygenation has been good. - Patient Data Vitals - Most Recent: Last Vital Signs Temp 36.3 C 11/27/16 07:00 Pulse 85 11/27/16 08:04 Resp 21 H 11/27/16 09:00 BP 131/57 L 11/27/16 09:00 Pulse Ox 98 11/27/16 09:00 Weight - Most Recent: 93.894 kg I&O - Last 24 Hours: Intake & Output 11/26/16 11/27/16 11/27/16 22:59 06:59 14:59 Intake Total 3517 1774 Output Total 840 1175 40 Balance 2677 599 -40 Lab Results Last 24 Hours: Laboratory Results - last 24 hr 11/27/16 11/27/16 11/27/16 Range/Units 03:50 03:50 03:50 WBC 10.8 (4.5-11.0) K/uL RBC 3.43 (3.30-5.50) M/uL Hgb 9.9 L (12.0-15.0) g/dL Hct 30.8 L (36.0-48.0) % MCV 90 (80-98) fL MCH 29 (27-31) pg MCHC 32 (32-36) % Plt Count 151 (150-400) K/uL Puncture Site A-line ABG pH 7.239 L (7.350-7.450) ABG pCO2 56.9 H (35.0-42.0) mmHg ABG pO2 57.9 L (75.0-100.0) mmHg ABG HCO3 23.5 (22.0-26.0) mmol/L ABG Total CO2 22.6 (21.0-25.0) mmol/L ABG O2 Saturation 87.4 L (95.0-98.0) % ABG O2 Content 12.1 L (15.0-23.0) %vol ABG Base Excess -3.8 mm/L ABG Hemoglobin 10.0 L (12.0-16.0) g/dL ABG Oxyhemoglobin 85.6 % ABG Carboxyhemoglobin 1.8 H (0.0-1.6) % ABG Methemoglobin 0.3 % Mo Test A-line O2 Delivery Device Nasal cannula Oxygen Flow Rate 1 L Sodium 130 L (140-148) mmol/L Potassium 4.5 (3.6-5.2) mmol/L Chloride 100 (100-108) mmol/L Carbon Dioxide 25 (21-32) mmol/L Anion Gap 9.5 (5.0-14.0) mmol/L BUN 9 (7-18) mg/dL Creatinine 0.8 (0.6-1.0) mg/dL Est Cr Clr Drug Dosing 44.99 mL/min Estimated GFR (MDRD) > 60 (>60) Glucose 205 H (74-106) mg/dL Calcium 7.4 L (8.5-10.1) mg/dL Phosphorus 3.5 (2.5-4.9) mg/dL NT-Pro-B Natriuret Pep 448 H (5-125) pg/mL David Results Last 24 Hours: Microbiology 11/25/16 11:15 Gram Stain - Final Bronchial Washings - Right Upper Lobe Respiratory Culture - Final ORAL CONTAMINATION 2 DAY Med Orders - Current: Current Medications Acetylcysteine (Mucomyst 20%) 200 mg INH BIDRT [facility] Last Admin: 11/27/16 08:05 Dose: 200 mg Albuterol/Ipratropium (Duoneb 3.0-0.5 Mg/3 Ml) 3 ml INH QIDRT [facility] Last Admin: 11/27/16 07:06 Dose: 3 ml Albuterol/Ipratropium (Duoneb 3.0-0.5 Mg/3 Ml) 3 ml INH ASDIRECTED PRN PRN Reason: Shortness of Breath Amitriptyline HCl (Elavil) 50 mg PO BEDTIME [facility] Last Admin: 11/26/16 20:54 Dose: 50 mg Aspirin (Halfprin) 81 mg PO DAILY [facility] Last Admin: 11/27/16 08:04 Dose: 81 mg Bumetanide (Bumex) 1 mg IVPUSH Q12H [facility] Stop: 11/27/16 20:01 Last Admin: 11/27/16 08:05 Dose: 1 mg Dextrose (Glutose 15) 15 gm PO ASDIRECTED PRN PRN Reason: HYPOGLYCEMIA Dextrose/Water (Dextrose 50% In Water) 50 ml IVPUSH ASDIRECTED PRN PRN Reason: HYPOGLYCEMIA Diphenhydramine HCl (Benadryl) 25 mg IVPUSH Q6H PRN PRN Reason: ITCHING Docusate Sodium (Colace) 100 mg PO BID [facility] Last Admin: 11/27/16 08:03 Dose: 100 mg Enalapril Maleate (Vasotec) 2.5 mg PO BEDTIME [facility] Last Admin: 11/26/16 20:54 Dose: 2.5 mg Gabapentin (Neurontin) 100 mg PO BEDTIME [facility] Last Admin: 11/26/16 20:54 Dose: 100 mg Glucagon (Glucagen) 1 mg IM ASDIRECTED PRN PRN Reason: HYPOGLYCEMIA Fentanyl 2,500 mcg/ Sodium (Chloride) 250 mls @ 0 mls/hr EPIDUR TITRATE [facility]; Titrate PRN Reason: Protocol Last Admin: 11/26/16 15:26 Dose: 8 mls/hr, 8 mls/hr Naloxone HCl 0.4 mg/ Dextrose/ (Sodium Chloride) 1,001 mls @ 100 mls/hr IV ASDIRECTED [facility] Last Admin: 11/26/16 15:14 Dose: 100 mls/hr Levofloxacin/Dextrose 500 mg/ (Premix) 100 mls @ 100 mls/hr IV Q24H [facility] Last Admin: 11/27/16 09:41 Dose: 100 mls/hr Heparin Sodium (Porcine) 5,000 (units/ Sodium Chloride) 501 mls @ 1 mls/hr IV ASDIRECTED [facility] Last Admin: 11/25/16 16:12 Dose: 1 mls/hr Heparin Sodium (Porcine) 5,000 (units/ Sodium Chloride) 501 mls @ 1 mls/hr IV ASDIRECTED [facility] Magnesium Sulfate 2 gm/ Premix 50 mls @ 25 mls/hr IV Q6H [facility] Stop: 11/28/16 05:59 Last Admin: 11/27/16 09:41 Dose: 25 mls/hr Dextrose/Sodium Chloride (Dextrose 5%-Normal Saline) 1,000 mls @ 75 mls/hr IV ASDIRECTED [facility] Sodium Chloride (Normal Saline) 1,000 mls @ 25 mls/hr IV ASDIRECTED [facility] Insulin Aspart (Novolog) 0 unit SUBCUT Q6H PRN; Protocol PRN Reason: MEDIUM CORRECTIONAL DOSE Last Admin: 11/27/16 08:15 Dose: 3 units Levothyroxine Sodium 100 mcg/ (Levothyroxine Sodium 25 mcg) 125 mcg PO ACBREAKFAST [facility] Last Admin: 11/27/16 08:05 Dose: 125 mcg Lorazepam (Ativan) 0.5 - 1 mg IVPUSH Q4H PRN PRN Reason: Anxiety Last Admin: 11/26/16 21:01 Dose: 0.5 mg Naloxone HCl (Narcan) 0.1 mg IVPUSH Q5M PRN PRN Reason: RESP RATE LESS THAN 6/MINUTE Verify Scop Patch 0 each TOP DAILY [facility] Last Admin: 11/27/16 08:19 Dose: Not Given Ondansetron HCl (Zofran) 4 mg IV Q4H PRN PRN Reason: N/V Last Admin: 11/26/16 17:53 Dose: 4 mg Pantoprazole Sodium (Protonix Iv) 40 mg IV Q24H [facility] Last Admin: 11/26/16 15:17 Dose: 40 mg Advair 100/50 (Inhaler (Ptom)) 0 each INH BIDRT [facility] Last Admin: 11/27/16 07:06 Dose: 1 each Scopolamine (Transderm-Scop) 1.5 mg TOP Q72H [facility] Stop: 11/28/16 03:00 Last Admin: 11/25/16 09:00 Dose: 1.5 mg Senna/Docusate Sodium (Senna Plus) 2 tab PO DAILY [facility] Last Admin: 11/27/16 08:03 Dose: 2 tab Sotalol HCl (Betapace) 80 mg PO BID [facility] Last Admin: 11/27/16 08:04 Dose: 80 mg Spironolactone (Aldactone) 25 mg PO BEDTIME [facility] Last Admin: 11/26/16 20:53 Dose: 25 mg Venlafaxine HCl (Effexor Xr) 75 mg PO DAILY [facility] Last Admin: 11/27/16 08:04 Dose: 75 mg Discontinued Medications Albuterol (Proventil Neb Soln) Confirm Administered Dose 2.5 mg .ROUTE .STK-MED ONE Stop: 11/25/16 07:56 Last Admin: 11/25/16 08:03 Dose: 2.5 mg Albuterol/Ipratropium (Duoneb 3.0-0.5 Mg/3 Ml) 3 ml NEB ONETIME ONE Stop: 11/25/16 10:01 Last Admin: 11/25/16 09:00 Dose: 3 ml Bumetanide (Bumex) 1 mg IVPUSH ONETIME ONE Stop: 11/26/16 17:21 Last Admin: 11/26/16 17:49 Dose: 1 mg Bupivacaine HCl/Epinephrine Bitart (Marcaine 0.5%/Epinephrine 1:200,000) Confirm Administered Dose 50 ml .ROUTE .STK-MED ONE Stop: 11/25/16 12:04 Bupivacaine HCl/Epinephrine Bitart (Marcaine 0.5%/Epinephrine 1:200,000) 18 ml INJECT .STK-MED ONE Stop: 11/25/16 12:01 Last Admin: 11/25/16 12:00 Dose: 18 ml Carvedilol (Coreg) 6.25 mg PO BID [facility] Last Admin: 11/26/16 15:15 Dose: 6.25 mg Dexamethasone (Dexamethasone) Confirm Administered Dose 4 mg .ROUTE .STK-MED ONE Stop: 11/25/16 07:45 Fentanyl Citrate (Fentanyl) Confirm Administered Dose 500 mcg .ROUTE .STK-MED ONE Stop: 11/25/16 07:45 Gabapentin (Neurontin) 100 mg PO ONETIME ONE Stop: 11/25/16 07:46 Last Admin: 11/25/16 08:33 Dose: 100 mg Glycopyrrolate (Robinul) Confirm Administered Dose 1 mg .ROUTE .STK-MED ONE Stop: 11/25/16 07:45 Heparin Sodium (Porcine) (Heparin Sodium) Confirm Administered Dose 5,000 units .ROUTE .STK-MED ONE Stop: 11/25/16 07:46 Heparin Sodium (Porcine) (Heparin Lock Flush 100 Units/Ml) Confirm Administered Dose 1,000 units .ROUTE .STK-MED ONE Stop: 11/25/16 08:51 Dextrose/Lactated Ringer's (Dextrose 5%-Lactated Ringers) 1,000 mls @ 100 mls/ hr IV ASDIRECTED [facility] Levofloxacin/Dextrose 500 mg/ (Premix) 100 mls @ 100 mls/hr IV ONETIME ONE Stop: 11/25/16 10:59 Last Admin: 11/25/16 10:00 Dose: 100 mls/hr Lidocaine HCl (Xylocaine-Mpf 1%) Confirm Administered Dose 2 mls @ as directed .ROUTE [facility] ONE Stop: 11/25/16 07:46 Dextrose/Sodium Chloride (Dextrose 5%-Normal Saline) 1,000 mls @ 100 mls/hr IV ASDIRECTED [facility] Lactated Ringer's (Ringers, Lactated) Confirm Administered Dose 1,000 mls @ as directed .ROUTE .[facility] ONE Stop: 11/25/16 09:24 Sodium Chloride (Normal Saline) Confirm Administered Dose 10 mls @ as directed .ROUTE .[facility] ONE Stop: 11/25/16 12:04 Sodium Chloride (Normal Saline) 1,000 mls @ 75 mls/hr IV ASDIRECTED [facility] Last Admin: 11/26/16 16:32 Dose: 75 mls/hr Lactated Ringer's (Ringers, Lactated) 500 mls @ 500 mls/hr IV .[facility]OL[facility] Stop: 11/25/16 18:15 Last Admin: 11/25/16 17:15 Dose: 500 mls/hr Lactated Ringer's (Ringers, Lactated) 500 mls @ 500 mls/hr IV .BOLUS [facility] Stop: 11/26/16 10:01 Last Admin: 11/26/16 09:15 Dose: 500 mls/hr Lactated Ringer's (Ringers, Lactated) 500 mls @ 500 mls/hr IV .[facility]OLUS [facility] Last Admin: 11/26/16 13:36 Dose: 500 mls/hr Insulin Aspart (Novolog) 3 unit SUBCUT ONETIME [facility] Last Admin: 11/25/16 12:48 Dose: 3 units Insulin Detemir (Levemir) 30 unit SUBCUT ONETIME ONE Stop: 11/25/16 21:01 Last Admin: 11/25/16 21:00 Dose: 30 units Lidocaine HCl (Xylocaine 2% Viscous) Confirm Administered Dose 15 ml .ROUTE .[facility] ONE Stop: 11/25/16 09:50 Meropenem (Merrem) 500 mg IRR .STK-MED ONE Stop: 11/25/16 11:41 Last Admin: 11/25/16 11:40 Dose: 500 mg Meropenem (Merrem) Confirm Administered Dose 500 mg .ROUTE .STK-MED ONE Stop: 11/25/16 12:04 Neostigmine Methylsulfate (Neostigmine) Confirm Administered Dose 5 mg .ROUTE .STK-MED ONE Stop: 11/25/16 07:45 Ondansetron HCl (Zofran) Confirm Administered Dose 4 mg .ROUTE .STK-MED ONE Stop: 11/25/16 07:45 Propofol (Diprivan 20 Ml) Confirm Administered Dose 200 mg .ROUTE .STK-MED ONE Stop: 11/25/16 07:45 Rocuronium [place] (Zemuron) Confirm Administered Dose 50 mg .ROUTE .STK-MED ONE Stop: 11/25/16 07:45 Succinylcholine Chloride (Quelicin) Confirm Administered Dose 200 mg .ROUTE .STK -MED ONE Stop: 11/25/16 07:45 - Exam Quality Assessment: Supplemental Oxygen, Urine Catheter General: Alert, Oriented, Cooperative, No Acute Distress HEENT: Pupils Equal Neck: Supple Lungs: Normal Respiratory Effort, Rales (few left lung base), Rhonchi ( throughout right lung ). No: Wheezing Cardiovascular: Regular Rate, Regular Rhythm GI/Abdominal Exam: Soft, No Distention Extremities: No Pedal Edema. No: Increased Warmth Skin: Warm, Dry Psy/Mental Status: Alert, Normal Affect Consult PN Assessment/Plan POD#: 1 Procedures: Procedures AIRWAY INHALATION TREATMENT (02/11/16) ASSAY OF CK (CPK) (01/27/16) ASSAY OF LACTIC ACID (01/27/16) ASSAY OF NATRIURETIC PEPTIDE (08/15/16) ASSAY OF TROPONIN QUANT (08/15/16) BLOOD CULTURE FOR BACTERIA (01/27/16) C-REACTIVE PROTEIN (01/27/16) CATARACT SURG W/IOL 1 STAGE (10/22/15) CHEST X-RAY 2VW FRONTAL&LATL (08/15/16) CINE/VID X-RAY THROAT/ESOPH (12/10/14) COMPLETE CBC W/AUTO DIFF WBC (08/15/16) COMPREHEN METABOLIC PANEL (08/15/16) CT ABDOMEN W/DYE (11/24/16) CT ANGIOGRAPHY CHEST (08/05/15) CT THORAX W/DYE (11/24/16) CULTURE SCREEN ONLY (12/05/14) EGD BIOPSY SINGLE/MULTIPLE (12/05/14) ELECTROCARDIOGRAM TRACING (08/15/16) EMERGENCY DEPT VISIT (08/15/16) EMERGENCY DEPT VISIT (02/11/16) EMERGENCY DEPT VISIT (01/27/16) EMERGENCY DEPT VISIT (07/23/14) EMERGENCY DEPT VISIT (07/23/14) EMERGENCY DEPT VISIT (02/01/14) EMERGENCY DEPT VISIT (11/17/13) EMERGENCY DEPT VISIT (11/17/13) FIBRIN DEGRADATION QUANT (08/05/15) GLUCOSE BLOOD TEST (01/27/16) METABOLIC PANEL TOTAL CA (01/27/16) MOTION FLUOROSCOPY/SWALLOW (12/10/14) ROUTINE VENIPUNCTURE (08/15/16) THER/PROPH/DIAG IV INF ADDON (01/27/16) THER/PROPH/DIAG IV INF INIT (01/27/16) TTE W/DOPPLER COMPLETE (02/12/15) URINALYSIS AUTO W/SCOPE (01/27/16) URINE CULTURE/COLONY COUNT (01/27/16) (1) CHF (congestive heart failure) SNOMED Code(s): 97951466 Code(s): I50.9 - HEART FAILURE, UNSPECIFIED Current Visit: Yes Qualifiers: Congestive heart failure type: unspecified congestive heart failure type Congestive heart failure chronicity: acute on chronic Qualified Code(s): I50.9 - Heart failure, unspecified (2) IDDM (insulin dependent diabetes mellitus) SNOMED Code(s): 85344177 Code(s): E11.9 - TYPE 2 DIABETES MELLITUS WITHOUT COMPLICATIONS; Z79.4 - [facility] (CURRENT) USE OF INSULIN Current Visit: Yes (3) Cancer of lung SNOMED Code(s): 932350607 Code(s): C34.90 - MALIGNANT NEOPLASM OF UNSP PART OF UNSP BRONCHUS OR LUNG Current Visit: No Qualifiers: Laterality: right Lung location: unspecified part of lung Qualified Code( s): C34.91 - Malignant neoplasm of unspecified part of right bronchus or lung Problem List Initiated/Reviewed/Updated: Yes My Orders Last 24 Hours: My Active Orders 11/26/16 17:20 Dextrose 5%-0.9% NaCl [Dextrose 5%-Normal Saline] 1,000 ml IV ASDIRECTED 11/27/16 17:30 Sodium Chloride 0.9% [Normal Saline] 1,000 ml IV ASDIRECTED Plan: ASSESSMENT AND PLAN - Right lung mass is status post thoracotomy and resection 11/25 - pain fairly well controlled at this point but has mild persistent respiratory acidosis. Oxygen requirement is mild at this time. She has an epidural for pain control. agree with Mucomyst nebulizers to improve efficiency of cough and mucolytic effect. chest x-ray shows increased opacification of the right lung. -Postop cares per Dr. Mckeon sSystolic congestive heart failure - history of heart failure, had been well compensated prior to surgery and she had not been on diuretics. Moderately reduced systolic function on most recent echocardiogram. still has mild volume overload though fairly well compensated at this point. -Cardiac monitoring -1 mg of bumetanide twice daily -Continue medical management -Supplement oxygen -Intake and output monitoring -Consider echocardiogram COPD - no evidence for acute exacerbation at this time. -Continue current respiratory treatments Insulin-dependent diabetes - sugars have been tolerable so far. -Continue current management Vel Simmons M.D.
[2016-11-27] MEDS ORDERED: Bumetanide 1 MG/4 ML MDV IVPUSH ONE (15:00)
[2016-11-27] MEDS: fentaNYL 2,500 MCG in Sodium Chloride 0.9% 200 ML EPIDUR SCH (15:01)
[2016-11-27] MEDS: LORazepam 2 MG/ML MDV IVPUSH PRN ×4 (15:30→23:08)
[2016-11-27] MEDS: Pantoprazole 40 MG Vial IV SCH (16:12)
[2016-11-27] MEDS ORDERED: Sodium Chloride 0.9% 1,000 ML IV SCH (17:30)
--- NOTE | 2016-11-27 18:16 | PCM.SN ---
- Free Text/Narrative Note: I was called to ICU after pt personally removed her NIPPV and then shortly thereafter removed her nasal cannula. Her oxygen saturations have been declining since this. She is obviously delirious at this time. She does not know where she has absent thinks that she set home. She is very paranoid and thinks that we are trying to run her life go against her wishes. She's not able to express wishes. She's not able to express a coherent reason why she will not wear oxygen at this time. She does not seem to understand that without any these cares she will because her oxygen levels have been steadily dropping. I talked to family including her son Karsten. I expressed my concern that she is not thinking clearly at this point and would recommend that we restrained her and provide the cares necessary to keep her alive. I recommended removing the scopolamine patch as well as oral medications that could potentially contribute to her delirium. She also has CO2 retention which certainly could be clouding her judgment and thinking. They were in agreement that this was not acceptable course of action. We did discuss CODE STATUS earlier and while she was clear she was very adamant that she did not want to be on a breathing machine and did not want to be resuscitated if her heart stopped. They are accepting of her wishes to not provide heroic measures should it come to that because she has previously stated these and has an advanced directive stating this. They are okay with restraint and sedation to deliver the appropriate and necessary respiratory treatment to keep her alive in the postoperative setting. Assessment -Agitated delirium -Status post thoracotomy and resection of lung cancer -Respiratory failure with hypoxia and hypercapnia Plan -Sedation with lorazepam -Supplemental oxygen versus noninvasive ventilation as indicated -Discontinue scopolamine, gabapentin, amitriptyline -Continue with other cares I did update Dr. Mckeon with the current state and my recommendations. He was in agreement with that plan. Vel Simmons M.D.
[2016-11-27] MEDS ORDERED: Haloperidol Lactate 5 MG/ML SDV IVPUSH PRN (18:22)
[2016-11-27] MEDS: NALOXONE IV SCH (19:32)
[2016-11-27] MEDS: NACL IV SCH (19:32)
[2016-11-27] MEDS: DEXTROSE IV SCH (19:32)
[2016-11-27] MEDS: Spironolactone 25 MG Tab PO SCH (21:02)
[2016-11-28] MEDS: LORazepam 2 MG/ML MDV IVPUSH PRN ×6 (03:22→23:43)
[2016-11-28] MEDS: Magnesium Sulfate/Water 2 GM in Premix Bag 1 BAG IV SCH (04:03)
[2016-11-28] MEDS: Acetylcysteine 20% 200 MG/ML 4 ML Nebulizer Soln SDV INH SCH ×2 (07:20→20:43)
[2016-11-28] MEDS: Albuterol/Ipratropium 3.0-0.5 MG/3 ML Neb Soln INH SCH ×4 (07:20→20:35)
[2016-11-28] MEDS: Bumetanide 1 MG/4 ML MDV IV SCH ×2 (07:35→19:56)
[2016-11-28] MEDS ORDERED: Bumetanide 1 MG/4 ML MDV IVPUSH SCH (08:00)
[2016-11-28] MEDS: Insulin Aspart 100 Units/ML 3 ML Pen SUBCUT PRN ×4 (08:01→20:47)
--- NOTE | 2016-11-28 08:17 | PN ---
DATE OF SERVICE: 11/27/2016 The patient has been afebrile with stable vital signs. She is felt to be somewhat fluid overloading and did receive some Bumex per Dr. Simmons yesterday with reasonable amount of urine output. She has raspy lung sounds today. This appears to be more of upper respiratory issues that needed to be cleared with increased activity and acapella use and such. Otherwise, her blood gases do show more of a CO2 retention pattern. This was someone who may evolve into a CO2 retaining pattern in the postoperative period. Chest tube output was 700 mL. Chest x-ray looks satisfactory. She still has quite a bit in the way of mediastinal shift related to the volume loss on the right side. There is only a small amount of air in the apex. Labs show hemoglobin 9.9 and white count 10.8. The chloride and sodium still are somewhat lower at 100 and 130, so will continue the normal saline from the IV. Blood sugar this morning is 205, BNP is up somewhat at 448, and creatinine is stable at 0.8. She had a fairly large urine output after the Bumex yesterday, and now it has been running around 30 to 40 mL an hour in terms of urine output. The plan will be to maximize activity daily and continue work with pulmonary toilet. We will continue the present IV solution. I think we will give her some scheduled Bumex on b.i.d. basis. Triplett catheter obviously needs to be left in place to monitor the urine output issue at this point. Stanislaw Mckeon MD /[id number]
[2016-11-28] MEDS: Acetaminophen 1,000 MG in Premix Bag 1 BAG IV SCH ×3 (09:49→22:38)
[2016-11-28] MEDS: Sotalol 80 MG Tab PO SCH ×2 (10:06→20:36)
[2016-11-28] MEDS: Aspirin 81 MG Tab.EC PO SCH (10:08)
[2016-11-28] MEDS: Venlafaxine 75 MG Cap.ER PO SCH (10:08)
[2016-11-28] MEDS: Docusate Sodium 100 MG Cap PO SCH ×2 (10:08→21:07)
[2016-11-28] MEDS: Levothyroxine 100 MCG, Levothyroxine 25 MCG PO SCH ×2 (10:09)
--- NOTE | 2016-11-28 10:19 | CR ---
Chest 1V Frontal HISTORY: Chest tube. COMPARISON: 11/27/2016. FINDINGS: Left-sided pacemaker. Right-sided central line catheter. 2 right-sided chest tubes. The kia m is moderately rotated to the right. Some of the mediastinum soft tissues obscure is the right hemit horax. I do not see definitive right-sided pneumothorax. Left lung is clear. Stable volume loss in th e right hemithorax. Impression: No new infiltrates or pneumothorax seen. Stable volume loss and opacification in the right hemithorax .
--- NOTE | 2016-11-28 10:21 | CR ---
Chest 1V Frontal HISTORY: Chest tube COMPARISON: 11/26/2016. FINDINGS: The right apical pneumothorax appears to have decreased in size. 2 right-sided chest tubes. No new infiltrates.
--- NOTE | 2016-11-28 10:22 | CR ---
Chest 1V Frontal HISTORY: Chest tube. COMPARISON: 11/25/2016. FINDINGS: The right-sided pneumothorax has improved slightly from prior study. 2 right-sided chest tu bes. Stable opacification in the right hemithorax with volume loss. Some of the density in the right hemithorax is mediastinum structures due to rotation of the film.
[2016-11-28] MEDS: ADVAIR INH SCH ×2 (10:43→20:44)
[2016-11-28] MEDS: Levofloxacin/Dextrose 5%-Water 500 MG in Premix Bag 1 BAG IV SCH (10:47)
--- NOTE | 2016-11-28 11:15 | PCM.CONSN ---
- General Info Date of Service: 11/28/16 Functional Status: Reports: Pain Controlled - Review of Systems General: Reports: Weakness. Denies: Fever, Chills Pulmonary: Reports: Shortness of Breath, Cough, Sputum. Denies: Pleuritic Chest Pain, Hemoptysis, Wheezing Cardiovascular: Reports: Dyspnea on Exertion, Edema. 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 Postoperative course has been complicated by respiratory compromise, she has known underlying congestive heart failure as well as COPD. Over the last 24 hours has been treated with BiPAP, respiratory status has been somewhat borderline but remained stable. She is adamantly refused any consideration of intubation and mechanical ventilation. Was felt likely that her respiratory compromise was secondary to fluid overload and she is been diuresed modestly in the past 24 hours without significant improvement in oxygenation. - Patient Data Vitals - Most Recent: Last Vital Signs Temp 99.7 F 11/28/16 10:00 Pulse 98 11/28/16 11:01 Resp 16 11/28/16 11:00 BP 108/41 L 11/28/16 11:00 Pulse Ox 96 11/28/16 11:00 Weight - Most Recent: 226 lb 10.163 oz I&O - Last 24 Hours: Intake & Output 11/27/16 11/28/16 11/28/16 22:59 06:59 14:59 Intake Total 1284 1481 Output Total 2225 375 380 Balance -941 1106 -380 Lab Results Last 24 Hours: Laboratory Results - last 24 hr 11/27/16 11/27/16 11/28/16 Range/Units 17:00 19:30 04:25 WBC 9.2 (4.5-11.0) K/uL RBC 3.24 L (3.30-5.50) M/uL Hgb 9.5 L (12.0-15.0) g/dL Hct 28.9 L (36.0-48.0) % MCV 89 (80-98) fL MCH 29 (27-31) pg MCHC 33 (32-36) % Plt Count 147 L (150-400) K/uL Puncture Site Line Line ABG pH 7.295 L 7.287 L (7.350-7.450) ABG pCO2 51.7 H 53.2 H (35.0-42.0) mmHg ABG pO2 108.0 H 99.6 (75.0-100.0) mmHg ABG HCO3 24.4 24.6 (22.0-26.0) mmol/L ABG Total CO2 23.1 23.4 (21.0-25.0) mmol/L ABG O2 Saturation 98.4 H 97.7 (95.0-98.0) % ABG O2 Content 13.8 L 13.8 L (15.0-23.0) %vol ABG Base Excess -1.8 -1.9 mm/L ABG Hemoglobin 10.1 L 10.2 L (12.0-16.0) g/dL ABG Oxyhemoglobin 96.2 95.6 % ABG Carboxyhemoglobin 1.7 H 1.6 (0.0-1.6) % ABG Methemoglobin 0.5 0.5 % Mo Test TNP TNP O2 Delivery Device Nasal cannula Bipap Oxygen Flow Rate 45 L Sodium (140-148) mmol/L Potassium (3.6-5.2) mmol/L Chloride (100-108) mmol/L Carbon Dioxide (21-32) mmol/L Anion Gap (5.0-14.0) mmol/L BUN (7-18) mg/dL Creatinine (0.6-1.0) mg/dL Est Cr Clr Drug Dosing mL/min Estimated GFR (MDRD) (>60) Glucose (74-106) mg/dL Calcium (8.5-10.1) mg/dL Phosphorus (2.5-4.9) mg/dL Total Bilirubin (0.2-1.0) mg/dL AST (15-37) U/L ALT (12-78) U/L Alkaline Phosphatase (46-116) U/L NT-Pro-B Natriuret Pep (5-125) pg/mL Total Protein (6.4-8.2) g/dL Albumin (3.4-5.0) g/dL Globulin (2.3-3.5) g/dL Albumin/Globulin Ratio (1.2-2.2) 10/02/17 10/02/17 Range/Units 04:25 04:25 WBC (4.5-11.0) K/uL RBC (3.30-5.50) M/uL Hgb (12.0-15.0) g/dL Hct (36.0-48.0) % MCV (80-98) fL MCH (27-31) pg MCHC (32-36) % Plt Count (150-400) K/uL Puncture Site Line ABG pH 7.287 L (7.350-7.450) ABG pCO2 54.8 H (35.0-42.0) mmHg ABG pO2 98.8 (75.0-100.0) mmHg ABG HCO3 25.3 (22.0-26.0) mmol/L ABG Total CO2 24.3 (21.0-25.0) mmol/L ABG O2 Saturation 97.7 (95.0-98.0) % ABG O2 Content 12.8 L (15.0-23.0) %vol ABG Base Excess -1.1 mm/L ABG Hemoglobin 9.5 L (12.0-16.0) g/dL ABG Oxyhemoglobin 95.2 % ABG Carboxyhemoglobin 2.2 H (0.0-1.6) % ABG Methemoglobin 0.4 % Mo Test O2 Delivery Device Nasal cannula Oxygen Flow Rate L Sodium 132 L (140-148) mmol/L Potassium 4.0 (3.6-5.2) mmol/L Chloride 100 (100-108) mmol/L Carbon Dioxide 25 (21-32) mmol/L Anion Gap 11.0 (5.0-14.0) mmol/L BUN 10 (7-18) mg/dL Creatinine 0.9 (0.6-1.0) mg/dL Est Cr Clr Drug Dosing 39.99 mL/min Estimated GFR (MDRD) > 60 (>60) Glucose 174 H (74-106) mg/dL Calcium 7.4 L (8.5-10.1) mg/dL Phosphorus 3.3 (2.5-4.9) mg/dL Total Bilirubin 0.6 (0.2-1.0) mg/dL AST 81 H D (15-37) U/L ALT 31 (12-78) U/L Alkaline Phosphatase 56 (46-116) U/L NT-Pro-B Natriuret Pep 543 H (5-125) pg/mL Total Protein 6.2 L (6.4-8.2) g/dL Albumin 2.3 L (3.4-5.0) g/dL Globulin 3.9 H (2.3-3.5) g/dL Albumin/Globulin Ratio 0.6 L (1.2-2.2) David Results Last 24 Hours: Microbiology 11/25/16 11:15 Fungal Culture - Preliminary Bronchial - Bronch Wash NO FUNGAL GROWTH AT 1 WEEK 11/25/16 11:15 Gram Stain - Final Bronchial Washings - Right Upper Lobe Respiratory Culture - Final ORAL CONTAMINATION 2 DAY Med Orders - Current: Current Medications Acetylcysteine (Mucomyst 20%) 200 mg INH BIDRT [facility] Last Admin: 11/28/16 07:20 Dose: 200 mg Albuterol/Ipratropium (Duoneb 3.0-0.5 Mg/3 Ml) 3 ml INH QIDRT [facility] Last Admin: 11/28/16 11:01 Dose: 3 ml Albuterol/Ipratropium (Duoneb 3.0-0.5 Mg/3 Ml) 3 ml INH ASDIRECTED PRN PRN Reason: Shortness of Breath Aspirin (Halfprin) 81 mg PO DAILY [facility] Last Admin: 11/28/16 10:08 Dose: 81 mg Bumetanide (Bumex) 1 mg IV Q12H [facility] Stop: 11/28/16 20:01 Last Admin: 11/28/16 07:35 Dose: 1 mg Dextrose (Glutose 15) 15 gm PO ASDIRECTED PRN PRN Reason: HYPOGLYCEMIA Dextrose/Water (Dextrose 50% In Water) 50 ml IVPUSH ASDIRECTED PRN PRN Reason: HYPOGLYCEMIA Diphenhydramine HCl (Benadryl) 25 mg IVPUSH Q6H PRN PRN Reason: ITCHING Last Admin: 11/27/16 17:52 Dose: 25 mg Docusate Sodium (Colace) 100 mg PO BID [facility] Last Admin: 11/28/16 10:08 Dose: 100 mg Glucagon (Glucagen) 1 mg IM ASDIRECTED PRN PRN Reason: HYPOGLYCEMIA Haloperidol Lactate (Haldol) 2 mg IVPUSH Q1H PRN PRN Reason: Agitation Fentanyl 2,500 mcg/ Sodium (Chloride) 250 mls @ 0 mls/hr EPIDUR TITRATE [facility]; Titrate PRN Reason: Protocol Last Admin: 11/27/16 15:01 Dose: 8 mls/hr, 8 mls/hr Naloxone HCl 0.4 mg/ Dextrose/ (Sodium Chloride) 1,001 mls @ 100 mls/hr IV ASDIRECTED [facility] Last Admin: 11/27/16 19:32 Dose: 100 mls/hr Levofloxacin/Dextrose 500 mg/ (Premix) 100 mls @ 100 mls/hr IV Q24H [facility] Last Admin: 11/28/16 10:47 Dose: 100 mls/hr Heparin Sodium (Porcine) 5,000 (units/ Sodium Chloride) 501 mls @ 1 mls/hr IV ASDIRECTED [facility] Last Admin: 11/25/16 16:12 Dose: 1 mls/hr Heparin Sodium (Porcine) 5,000 (units/ Sodium Chloride) 501 mls @ 1 mls/hr IV ASDIRECTED [facility] Dextrose/Sodium Chloride (Dextrose 5%-Normal Saline) 1,000 mls @ 75 mls/hr IV ASDIRECTED [facility] Last Admin: 11/28/16 08:46 Dose: 75 mls/hr Sodium Chloride (Normal Saline) 1,000 mls @ 25 mls/hr IV ASDIRECTED [facility] Last Admin: 11/28/16 08:45 Dose: 25 mls/hr Acetaminophen 1,000 mg/ Premix 100 mls @ 400 mls/hr IV Q6H [facility] Stop: 11/29/16 10:01 Last Admin: 11/28/16 09:49 Dose: 400 mls/hr Insulin Aspart (Novolog) 0 unit SUBCUT Q6H PRN; Protocol PRN Reason: MEDIUM CORRECTIONAL DOSE Last Admin: 11/28/16 11:09 Dose: 2 units Levothyroxine Sodium 100 mcg/ (Levothyroxine Sodium 25 mcg) 125 mcg PO ACBREAKFAST [facility] Last Admin: 11/28/16 10:09 Dose: 125 mcg Lorazepam (Ativan) 1 - 2 mg IVPUSH Q1H PRN PRN Reason: Anxiety Last Admin: 11/28/16 10:44 Dose: 1 mg Naloxone HCl (Narcan) 0.1 mg IVPUSH Q5M PRN PRN Reason: RESP RATE LESS THAN 6/MINUTE Ondansetron HCl (Zofran) 4 mg IV Q4H PRN PRN Reason: N/V Last Admin: 11/26/16 17:53 Dose: 4 mg Pantoprazole Sodium (Protonix Iv) 40 mg IV Q24H [facility] Last Admin: 11/27/16 16:12 Dose: 40 mg Advair 100/50 (Inhaler (Ptom)) 0 each INH BIDRT [facility] Last Admin: 11/28/16 10:43 Dose: Not Given Senna/Docusate Sodium (Senna Plus) 2 tab PO DAILY [facility] Last Admin: 11/28/16 10:08 Dose: 2 tab Sotalol HCl (Betapace) 80 mg PO BID [facility] Last Admin: 11/28/16 10:06 Dose: 80 mg Spironolactone (Aldactone) 25 mg PO BEDTIME [facility] Last Admin: 11/27/16 21:02 Dose: Not Given Venlafaxine HCl (Effexor Xr) 75 mg PO DAILY [facility] Last Admin: 11/28/16 10:08 Dose: 75 mg Discontinued Medications Albuterol (Proventil Neb Soln) Confirm Administered Dose 2.5 mg .ROUTE .STK-MED ONE Stop: 11/25/16 07:56 Last Admin: 11/25/16 08:03 Dose: 2.5 mg Albuterol/Ipratropium (Duoneb 3.0-0.5 Mg/3 Ml) 3 ml NEB ONETIME ONE Stop: 11/25/16 10:01 Last Admin: 11/25/16 09:00 Dose: 3 ml Amitriptyline HCl (Elavil) 50 mg PO BEDTIME [facility] Last Admin: 11/26/16 20:54 Dose: 50 mg Bumetanide (Bumex) 1 mg IVPUSH ONETIME ONE Stop: 11/26/16 17:21 Last Admin: 11/26/16 17:49 Dose: 1 mg Bumetanide (Bumex) 1 mg IVPUSH Q12H [facility] Stop: 11/27/16 20:01 Last Admin: 11/27/16 08:05 Dose: 1 mg Bumetanide (Bumex) 2 mg IVPUSH ONETIME ONE Stop: 11/27/16 15:01 Last Admin: 11/27/16 14:58 Dose: 2 mg Bupivacaine HCl/Epinephrine Bitart (Marcaine 0.5%/Epinephrine 1:200,000) Confirm Administered Dose 50 ml .ROUTE .ST-MED ONE Stop: 11/25/16 12:04 Bupivacaine HCl/Epinephrine Bitart (Marcaine 0.5%/Epinephrine 1:200,000) 18 ml INJECT .STK-MED ONE Stop: 11/25/16 12:01 Last Admin: 11/25/16 12:00 Dose: 18 ml Carvedilol (Coreg) 6.25 mg PO BID [facility] Last Admin: 11/26/16 15:15 Dose: 6.25 mg Dexamethasone (Dexamethasone) Confirm Administered Dose 4 mg .ROUTE .ST-MED ONE Stop: 11/25/16 07:45 Enalapril Maleate (Vasotec) 2.5 mg PO BEDTIME [facility] Last Admin: 11/26/16 20:54 Dose: 2.5 mg Fentanyl Citrate (Fentanyl) Confirm Administered Dose 500 mcg .ROUTE .ST-MED ONE Stop: 11/25/16 07:45 Gabapentin (Neurontin) 100 mg PO ONETIME ONE Stop: 11/25/16 07:46 Last Admin: 11/25/16 08:33 Dose: 100 mg Gabapentin (Neurontin) 100 mg PO BEDTIME [facility] Last Admin: 11/26/16 20:54 Dose: 100 mg Glycopyrrolate (Robinul) Confirm Administered Dose 1 mg .ROUTE .[facility]-MED ONE Stop: 11/25/16 07:45 Heparin Sodium (Porcine) (Heparin Sodium) Confirm Administered Dose 5,000 units .ROUTE .[facility]-MED ONE Stop: 11/25/16 07:46 Heparin Sodium (Porcine) (Heparin Lock Flush 100 Units/Ml) Confirm Administered Dose 1,000 units .ROUTE .[facility]-MED ONE Stop: 11/25/16 08:51 Dextrose/Lactated Ringer's (Dextrose 5%-Lactated Ringers) 1,000 mls @ 100 mls/ hr IV ASDIRECTED [facility] Levofloxacin/Dextrose 500 mg/ (Premix) 100 mls @ 100 mls/hr IV ONETIME ONE Stop: 11/25/16 10:59 Last Admin: 11/25/16 10:00 Dose: 100 mls/hr Lidocaine HCl (Xylocaine-Mpf 1%) Confirm Administered Dose 2 mls @ as directed .ROUTE .[facility]-MED ONE Stop: 11/25/16 07:46 Dextrose/Sodium Chloride (Dextrose 5%-Normal Saline) 1,000 mls @ 100 mls/hr IV ASDIRECTED [facility] Lactated Ringer's (Ringers, Lactated) Confirm Administered Dose 1,000 mls @ as directed .ROUTE .STK-MED ONE Stop: 11/25/16 09:24 Sodium Chloride (Normal Saline) Confirm Administered Dose 10 mls @ as directed .ROUTE .STK-MED ONE Stop: 11/25/16 12:04 Sodium Chloride (Normal Saline) 1,000 mls @ 75 mls/hr IV ASDIRECTED [facility] Last Admin: 11/26/16 16:32 Dose: 75 mls/hr Lactated Ringer's (Ringers, Lactated) 500 mls @ 500 mls/hr IV .BOLUS [facility] Stop: 11/25/16 18:15 Last Admin: 11/25/16 17:15 Dose: 500 mls/hr Magnesium Sulfate 2 gm/ Premix 50 mls @ 25 mls/hr IV Q6H [facility] Stop: 11/28/16 05:59 Last Admin: 11/28/16 04:03 Dose: 25 mls/hr Lactated Ringer's (Ringers, Lactated) 500 mls @ 500 mls/hr IV .BOLUS [facility] Stop: 11/26/16 10:01 Last Admin: 11/26/16 09:15 Dose: 500 mls/hr Lactated Ringer's (Ringers, Lactated) 500 mls @ 500 mls/hr IV .BOLUS [facility] Last Admin: 11/26/16 13:36 Dose: 500 mls/hr Insulin Aspart (Novolog) 3 unit SUBCUT ONETIME [facility] Last Admin: 11/25/16 12:48 Dose: 3 units Insulin Detemir (Levemir) 30 unit SUBCUT ONETIME ONE Stop: 11/25/16 21:01 Last Admin: 11/25/16 21:00 Dose: 30 units Lidocaine HCl (Xylocaine 2% Viscous) Confirm Administered Dose 15 ml .ROUTE .STK -MED ONE Stop: 11/25/16 09:50 Lorazepam (Ativan) 0.5 - 1 mg IVPUSH Q4H PRN PRN Reason: Anxiety Last Admin: 11/27/16 15:30 Dose: 1 mg Meropenem (Merrem) 500 mg IRR .STK-MED ONE Stop: 11/25/16 11:41 Last Admin: 11/25/16 11:40 Dose: 500 mg Meropenem (Merrem) Confirm Administered Dose 500 mg .ROUTE .STK-MED ONE Stop: 11/25/16 12:04 Neostigmine Methylsulfate (Neostigmine) Confirm Administered Dose 5 mg .ROUTE .STK-MED ONE Stop: 11/25/16 07:45 Verify Scop Patch 0 each TOP DAILY [facility] Last Admin: 11/27/16 08:19 Dose: Not Given Ondansetron HCl (Zofran) Confirm Administered Dose 4 mg .ROUTE .STK-MED ONE Stop: 11/25/16 07:45 Propofol (Diprivan 20 Ml) Confirm Administered Dose 200 mg .ROUTE .STK-MED ONE Stop: 11/25/16 07:45 Rocuronium [place] (Zemuron) Confirm Administered Dose 50 mg .ROUTE .STK-MED ONE Stop: 11/25/16 07:45 Scopolamine (Transderm-Scop) 1.5 mg TOP Q72H [facility] Stop: 11/28/16 03:00 Last Admin: 11/25/16 09:00 Dose: 1.5 mg Succinylcholine Chloride (Quelicin) Confirm Administered Dose 200 mg .ROUTE .STK -MED ONE Stop: 11/25/16 07:45 - Exam Quality Assessment: Supplemental Oxygen, Urine Catheter General: Other (Confused and mildly agitated) Lungs: Decreased Breath Sounds, Rhonchi. No: Crackles, Rales, Wheezing Cardiovascular: Regular Rhythm, No Murmurs, Tachycardia GI/Abdominal Exam: Normal Bowel Sounds, Soft, Non-Tender, No Organomegaly, No Distention Extremities: Non-Tender, Pedal Edema Skin: Warm, Dry, Intact Consult PN Assessment/Plan Procedures: Procedures AIRWAY INHALATION TREATMENT (02/11/16) ASSAY OF CK (CPK) (01/27/16) ASSAY OF LACTIC ACID (01/27/16) ASSAY OF NATRIURETIC PEPTIDE (08/15/16) ASSAY OF TROPONIN QUANT (08/15/16) BLOOD CULTURE FOR BACTERIA (01/27/16) C-REACTIVE PROTEIN (01/27/16) CATARACT SURG W/IOL 1 STAGE (10/22/15) CHEST X-RAY 2VW FRONTAL&LATL (08/15/16) CINE/VID X-RAY THROAT/ESOPH (12/10/14) COMPLETE CBC W/AUTO DIFF WBC (08/15/16) COMPREHEN METABOLIC PANEL (08/15/16) CT ABDOMEN W/DYE (11/24/16) CT ANGIOGRAPHY CHEST (08/05/15) CT THORAX W/DYE (11/24/16) CULTURE SCREEN ONLY (12/05/14) EGD BIOPSY SINGLE/MULTIPLE (12/05/14) ELECTROCARDIOGRAM TRACING (08/15/16) EMERGENCY DEPT VISIT (08/15/16) EMERGENCY DEPT VISIT (02/11/16) EMERGENCY DEPT VISIT (01/27/16) EMERGENCY DEPT VISIT (07/23/14) EMERGENCY DEPT VISIT (07/23/14) EMERGENCY DEPT VISIT (02/01/14) EMERGENCY DEPT VISIT (11/17/13) EMERGENCY DEPT VISIT (11/17/13) FIBRIN DEGRADATION QUANT (08/05/15) GLUCOSE BLOOD TEST (01/27/16) METABOLIC PANEL TOTAL CA (01/27/16) MOTION FLUOROSCOPY/SWALLOW (12/10/14) ROUTINE VENIPUNCTURE (08/15/16) THER/PROPH/DIAG IV INF ADDON (01/27/16) THER/PROPH/DIAG IV INF INIT (01/27/16) TTE W/DOPPLER COMPLETE (02/12/15) URINALYSIS AUTO W/SCOPE (01/27/16) URINE CULTURE/COLONY COUNT (01/27/16) Problem List Initiated/Reviewed/Updated: Yes Plan: ASSESSMENT AND PLAN - Right lung mass is status post thoracotomy and resection 11/25 - pain control is been somewhat suboptimal, she has recently received IV acetaminophen. -Postop cares per Dr. Mckeon Hypoxic and hypercapnic respiratory failure- likely multifactorial with pulmonary edema and probable hypoventilation related to pain medication and recent surgery. She was significantly up on fluid following the surgery and has been modestly diuresed over the past 24 hours without significant improvement in oxygenation. She is adamantly refused any consideration of intubation or mechanical ventilation -Cardiac monitoring -1 mg of bumetanide twice daily -Continue medical management -Supplement oxygen -Intake and output monitoring -Consider echocardiogram when heart rate is under better control COPD - no evidence for acute exacerbation at this time. -Continue current respiratory treatments Insulin-dependent diabetes - sugars have been tolerable so far. -Continue current management
[2016-11-28] MEDS: Heparin Sodium 5,000 UNITS in Sodium Chloride 0.9% 500 ML IV SCH (14:32)
--- NOTE | 2016-11-28 14:41 | PN ---
DATE OF SERVICE: 11/28/2016 During the day yesterday, the patient became progressively more confused. She is having some problems clearing her secretions and developing a progressive CO2 retention. Given this issues, put on IPAP and with that has stabilized. She remains confused but manageable with some Ativan dosing roughly every 3 hours. Prior to becoming confused, the patient confirmed quite adamantly that she did not want any formal endotracheal intubation, so the plan will be to try to get her by with the IPAP. Presently, she has been afebrile with T- max of 99, heart rates in the 90s, blood pressure is running anywhere from 110s to 120s over 50 range. Chest x-ray shows quite a bit in the way of central edema, but she is actually oxygenating fairly well at 40% FiO2 with the O2 sats presently 92%. Blood gases this morning on low settings showed pH of 7.28, pCO2 of 54, pO2 of 98, gastric output over the last 24 hours 400 mL and she is having no air leak. The tube was still fluctuating fairly aggressively and the chest x-ray shows a mediastinal shift with there only being a small apical airspace present. Urine output has been facilitated by some intermittent Bumex dosing, the total urine output over the last 24 hours was 1170, the measured I and O was negative 505 which probably means we are dealing with probably a liter in that I and O. Her BNP remains somewhat elevated from baseline at 543. The preoperative BNP on this patient was in the 140 range. Her labs showing hemoglobin 9.5, white count 9.2. The creatinine is stable at 0.9. Blood sugar this morning is 174. At this point, the plan will be to continue the IPAP and intermittent sedation as needed. This is a case that I think we have some reasonable chance of getting her through this. We will continue the epidural catheter in place for today, perhaps RECRUITMENT INTERN tomorrow. Stanislaw Mckeon MD /[phone]
[2016-11-28] MEDS: Pantoprazole 40 MG Vial IV SCH (16:07)
[2016-11-28] MEDS: Spironolactone 25 MG Tab PO SCH (20:36)
[2016-11-28] MEDS: fentaNYL 2,500 MCG in Sodium Chloride 0.9% 200 ML EPIDUR SCH (22:38)
[2016-11-28] MEDS: NALOXONE IV SCH (23:09)
[2016-11-28] MEDS: NACL IV SCH (23:09)
[2016-11-28] MEDS: DEXTROSE IV SCH (23:09)
[2016-11-29] MEDS: LORazepam 2 MG/ML MDV IVPUSH PRN ×7 (02:06→19:33)
[2016-11-29] MEDS: Acetaminophen 1,000 MG in Premix Bag 1 BAG IV SCH ×3 (04:03→21:31)
[2016-11-29] MEDS: Albuterol/Ipratropium 3.0-0.5 MG/3 ML Neb Soln INH SCH ×4 (07:17→21:36)
[2016-11-29] MEDS: Acetylcysteine 20% 200 MG/ML 4 ML Nebulizer Soln SDV INH SCH ×2 (07:17→21:36)
[2016-11-29] MEDS: ADVAIR INH SCH ×2 (07:19→21:40)
[2016-11-29] MEDS: Levothyroxine 100 MCG, Levothyroxine 25 MCG PO SCH ×2 (08:09)
[2016-11-29] MEDS: Bumetanide 1 MG/4 ML MDV IV SCH ×2 (08:12→15:26)
[2016-11-29] MEDS: Potassium Phosphates 20 MMOLE in Sodium Chloride 0.9% 150 ML IV SCH ×3 (08:13→14:36)
[2016-11-29] MEDS: Insulin Aspart 100 Units/ML 3 ML Pen SUBCUT PRN ×4 (08:14→22:49)
--- NOTE | 2016-11-29 09:01 | CR ---
Chest 1V Frontal HISTORY: Chest tube COMPARISON: 11/28/2016. FINDINGS: Left-sided pacemaker. Moderately rotated film to the right. 2 right-sided chest tubes uncha nged. Probable tiny right-sided apical pneumothorax with some relative lucency at the medial clavicle region. Stable density at the right lower hemithorax. Stable volume loss right lung. No new infiltra te.
[2016-11-29] MEDS: Aspirin 81 MG Tab.EC PO SCH (09:55)
[2016-11-29] MEDS: Sotalol 80 MG Tab PO SCH ×2 (09:55→21:40)
[2016-11-29] MEDS: Docusate Sodium 100 MG Cap PO SCH ×2 (09:55→21:40)
[2016-11-29] MEDS: Venlafaxine 75 MG Cap.ER PO SCH (09:55)
[2016-11-29] MEDS: Levofloxacin/Dextrose 5%-Water 500 MG in Premix Bag 1 BAG IV SCH (10:00)
--- NOTE | 2016-11-29 10:19 | PCM.CONSN ---
- General Info Date of Service: 11/29/16 Functional Status: Reports: Pain Controlled - Review of Systems General: Reports: Weakness. Denies: Fever, Chills Systems Review Comment:: This patient continues to experience respiratory compromise and has required ongoing use of BiPAP for management of her hypoxic and hypercapnic respiratory failure. Lung gases have improved modestly since yesterday, she is not as alert as she had been but did receive lorazepam within the past few hours. Heart rate has come down and blood pressure has remained stable. - Patient Data Vitals - Most Recent: Last Vital Signs Temp 98.6 F 11/29/16 07:00 Pulse 92 11/29/16 09:55 Resp 19 11/29/16 09:00 BP 131/72 11/29/16 09:55 Pulse Ox 95 11/29/16 09:00 Weight - Most Recent: 214 lb 11.684 oz I&O - Last 24 Hours: Intake & Output 11/28/16 11/29/16 11/29/16 22:59 06:59 14:59 Intake Total 1611 1403 Output Total 610 950 450 Balance 1001 453 -450 Lab Results Last 24 Hours: Laboratory Results - last 24 hr 11/24/16 11/28/16 11/29/16 Range/Units 13:10 17:00 04:13 WBC 8.1 (4.5-11.0) K/uL RBC 3.08 L (3.30-5.50) M/uL Hgb 9.0 L (12.0-15.0) g/dL Hct 27.6 L (36.0-48.0) % MCV 90 (80-98) fL MCH 29 (27-31) pg MCHC 33 (32-36) % Plt Count 174 (150-400) K/uL Puncture Site Line ABG pH 7.283 L (7.350-7.450) ABG pCO2 56.9 H (35.0-42.0) mmHg ABG pO2 76.2 (75.0-100.0) mmHg ABG HCO3 26.1 H (22.0-26.0) mmol/L ABG Total CO2 25.1 H (21.0-25.0) mmol/L ABG O2 Saturation 94.5 L (95.0-98.0) % ABG O2 Content 12.0 L (15.0-23.0) %vol ABG Base Excess -0.5 mm/L ABG Hemoglobin 9.2 L (12.0-16.0) g/dL ABG Oxyhemoglobin 92.6 % ABG Carboxyhemoglobin 1.5 (0.0-1.6) % ABG Methemoglobin 0.5 % Mo Test Line O2 Delivery Device Bipap Oxygen Flow Rate L Sodium (140-148) mmol/L Potassium (3.6-5.2) mmol/L Chloride (100-108) mmol/L Carbon Dioxide (21-32) mmol/L Anion Gap (5.0-14.0) mmol/L BUN (7-18) mg/dL Creatinine (0.6-1.0) mg/dL Est Cr Clr Drug Dosing mL/min Estimated GFR (MDRD) (>60) Glucose (74-106) mg/dL Calcium (8.5-10.1) mg/dL Phosphorus (2.5-4.9) mg/dL Magnesium (1.8-2.4) mg/dL Total Bilirubin (0.2-1.0) mg/dL AST (15-37) U/L ALT (12-78) U/L Alkaline Phosphatase (46-116) U/L NT-Pro-B Natriuret Pep (5-125) pg/mL Total Protein (6.4-8.2) g/dL Albumin (3.4-5.0) g/dL Globulin (2.3-3.5) g/dL Albumin/Globulin Ratio (1.2-2.2) Crossmatch See Detail 11/29/16 11/29/16 Range/Units 04:13 04:13 WBC (4.5-11.0) K/uL RBC (3.30-5.50) M/uL Hgb (12.0-15.0) g/dL Hct (36.0-48.0) % MCV (80-98) fL MCH (27-31) pg MCHC (32-36) % Plt Count (150-400) K/uL Puncture Site Line ABG pH 7.322 L (7.350-7.450) ABG pCO2 53.1 H (35.0-42.0) mmHg ABG pO2 74.0 L (75.0-100.0) mmHg ABG HCO3 26.7 H (22.0-26.0) mmol/L ABG Total CO2 25.5 H (21.0-25.0) mmol/L ABG O2 Saturation 94.8 L (95.0-98.0) % ABG O2 Content 11.8 L (15.0-23.0) %vol ABG Base Excess 0.8 mm/L ABG Hemoglobin 9.1 L (12.0-16.0) g/dL ABG Oxyhemoglobin 92.1 % ABG Carboxyhemoglobin 2.5 H (0.0-1.6) % ABG Methemoglobin 0.3 % Mo Test O2 Delivery Device Bipap Oxygen Flow Rate L Sodium 136 L (140-148) mmol/L Potassium 3.5 L (3.6-5.2) mmol/L Chloride 102 (100-108) mmol/L Carbon Dioxide 29 (21-32) mmol/L Anion Gap 8.5 (5.0-14.0) mmol/L BUN 12 (7-18) mg/dL Creatinine 1.0 (0.6-1.0) mg/dL Est Cr Clr Drug Dosing 35.99 mL/min Estimated GFR (MDRD) 54 L (>60) Glucose 175 H (74-106) mg/dL Calcium 7.3 L (8.5-10.1) mg/dL Phosphorus 2.8 (2.5-4.9) mg/dL Magnesium 1.9 (1.8-2.4) mg/dL Total Bilirubin 1.0 D (0.2-1.0) mg/dL AST 82 H (15-37) U/L ALT 30 (12-78) U/L Alkaline Phosphatase 55 (46-116) U/L NT-Pro-B Natriuret Pep 1517 H (5-125) pg/mL Total Protein 6.1 L (6.4-8.2) g/dL Albumin 2.2 L (3.4-5.0) g/dL Globulin 3.9 H (2.3-3.5) g/dL Albumin/Globulin Ratio 0.6 L (1.2-2.2) Crossmatch David Results Last 24 Hours: Microbiology 11/25/16 11:15 Fungal Culture - Preliminary Bronchial - Bronch Wash NO FUNGAL GROWTH AT 1 WEEK Med Orders - Current: Current Medications Acetylcysteine (Mucomyst 20%) 200 mg INH BIDRT [facility] Last Admin: 11/29/16 07:17 Dose: 200 mg Albuterol/Ipratropium (Duoneb 3.0-0.5 Mg/3 Ml) 3 ml INH QIDRT [facility] Last Admin: 11/29/16 07:17 Dose: 3 ml Albuterol/Ipratropium (Duoneb 3.0-0.5 Mg/3 Ml) 3 ml INH ASDIRECTED PRN PRN Reason: Shortness of Breath Aspirin (Halfprin) 81 mg PO DAILY [facility] Last Admin: 11/29/16 09:55 Dose: Not Given Bumetanide (Bumex) 1 mg IV Q8H [facility] Stop: 11/30/16 00:01 Last Admin: 11/29/16 08:12 Dose: 1 mg Dextrose (Glutose 15) 15 gm PO ASDIRECTED PRN PRN Reason: HYPOGLYCEMIA Dextrose/Water (Dextrose 50% In Water) 50 ml IVPUSH ASDIRECTED PRN PRN Reason: HYPOGLYCEMIA Diphenhydramine HCl (Benadryl) 25 mg IVPUSH Q6H PRN PRN Reason: ITCHING Last Admin: 11/27/16 17:52 Dose: 25 mg Docusate Sodium (Colace) 100 mg PO BID [facility] Last Admin: 11/29/16 09:55 Dose: Not Given Glucagon (Glucagen) 1 mg IM ASDIRECTED PRN PRN Reason: HYPOGLYCEMIA Haloperidol Lactate (Haldol) 1 mg IVPUSH Q1H PRN PRN Reason: Agitation Fentanyl 2,500 mcg/ Sodium (Chloride) 250 mls @ 0 mls/hr EPIDUR TITRATE SOURAV; Titrate PRN Reason: Protocol Last Admin: 11/28/16 22:38 Dose: 8 mls/hr, 8 mls/hr Naloxone HCl 0.4 mg/ Dextrose/ (Sodium Chloride) 1,001 mls @ 100 mls/hr IV ASDIRECTED [facility] Last Admin: 11/28/16 23:09 Dose: 100 mls/hr Levofloxacin/Dextrose 500 mg/ (Premix) 100 mls @ 100 mls/hr IV Q24H [facility] Last Admin: 11/29/16 10:00 Dose: 100 mls/hr Heparin Sodium (Porcine) 5,000 (units/ Sodium Chloride) 501 mls @ 1 mls/hr IV ASDIRECTED [facility] Last Admin: 11/28/16 14:32 Dose: 1 mls/hr Heparin Sodium (Porcine) 5,000 (units/ Sodium Chloride) 501 mls @ 1 mls/hr IV ASDIRECTED [facility] Last Admin: 11/28/16 14:32 Dose: 1 mls/hr Dextrose/Sodium Chloride (Dextrose 5%-Normal Saline) 1,000 mls @ 75 mls/hr IV ASDIRECTED [facility] Last Admin: 11/28/16 08:46 Dose: 75 mls/hr Sodium Chloride (Normal Saline) 1,000 mls @ 25 mls/hr IV ASDIRECTED [facility] Last Admin: 11/28/16 08:45 Dose: 25 mls/hr Potassium Phosphate 20 mmole/ (Sodium Chloride) 156.6667 mls @ 52 mls/hr IV Q3H [facility] Stop: 11/29/16 16:59 Last Admin: 11/29/16 08:13 Dose: 52 mls/hr Insulin Aspart (Novolog) 0 unit SUBCUT Q6H PRN; Protocol PRN Reason: MEDIUM CORRECTIONAL DOSE Last Admin: 11/29/16 08:14 Dose: 2 units Levothyroxine Sodium 100 mcg/ (Levothyroxine Sodium 25 mcg) 125 mcg PO ACBREAKFAST [facility] Last Admin: 11/29/16 08:09 Dose: Not Given Lorazepam (Ativan) 0.5 mg IVPUSH Q2H PRN PRN Reason: Anxiety Naloxone HCl (Narcan) 0.1 mg IVPUSH Q5M PRN PRN Reason: RESP RATE LESS THAN 6/MINUTE Ondansetron HCl (Zofran) 4 mg IV Q4H PRN PRN Reason: N/V Last Admin: 11/26/16 17:53 Dose: 4 mg Pantoprazole Sodium (Protonix Iv) 40 mg IV Q24H [facility] Last Admin: 11/28/16 16:07 Dose: 40 mg Advair 100/50 (Inhaler (Ptom)) 0 each INH BIDRT [facility] Last Admin: 11/29/16 07:19 Dose: 1 each Senna/Docusate Sodium (Senna Plus) 2 tab PO DAILY [facility] Last Admin: 11/29/16 09:55 Dose: Not Given Sotalol HCl (Betapace) 80 mg PO BID [facility] Last Admin: 11/29/16 09:55 Dose: Not Given Spironolactone (Aldactone) 25 mg PO BEDTIME [facility] Last Admin: 11/28/16 20:36 Dose: 25 mg Venlafaxine HCl (Effexor Xr) 75 mg PO DAILY [facility] Last Admin: 11/29/16 09:55 Dose: Not Given Discontinued Medications Albuterol (Proventil Neb Soln) Confirm Administered Dose 2.5 mg .ROUTE .STK-MED ONE Stop: 11/25/16 07:56 Last Admin: 11/25/16 08:03 Dose: 2.5 mg Albuterol/Ipratropium (Duoneb 3.0-0.5 Mg/3 Ml) 3 ml NEB ONETIME ONE Stop: 11/25/16 10:01 Last Admin: 11/25/16 09:00 Dose: 3 ml Amitriptyline HCl (Elavil) 50 mg PO BEDTIME [facility] Last Admin: 11/26/16 20:54 Dose: 50 mg Bumetanide (Bumex) 1 mg IVPUSH ONETIME ONE Stop: 11/26/16 17:21 Last Admin: 11/26/16 17:49 Dose: 1 mg Bumetanide (Bumex) 1 mg IVPUSH Q12H [facility] Stop: 11/27/16 20:01 Last Admin: 11/27/16 08:05 Dose: 1 mg Bumetanide (Bumex) 2 mg IVPUSH ONETIME ONE Stop: 11/27/16 15:01 Last Admin: 11/27/16 14:58 Dose: 2 mg Bumetanide (Bumex) 1 mg IV Q12H [facility] Stop: 11/28/16 20:01 Last Admin: 11/28/16 19:56 Dose: 1 mg Bupivacaine HCl/Epinephrine Bitart (Marcaine 0.5%/Epinephrine 1:200,000) Confirm Administered Dose 50 ml .ROUTE .STK-MED ONE Stop: 11/25/16 12:04 Bupivacaine HCl/Epinephrine Bitart (Marcaine 0.5%/Epinephrine 1:200,000) 18 ml INJECT .STK-MED ONE Stop: 11/25/16 12:01 Last Admin: 11/25/16 12:00 Dose: 18 ml Carvedilol (Coreg) 6.25 mg PO BID [facility] Last Admin: 11/26/16 15:15 Dose: 6.25 mg Dexamethasone (Dexamethasone) Confirm Administered Dose 4 mg .ROUTE .ST-MED ONE Stop: 11/25/16 07:45 Enalapril Maleate (Vasotec) 2.5 mg PO BEDTIME [facility] Last Admin: 11/26/16 20:54 Dose: 2.5 mg Fentanyl Citrate (Fentanyl) Confirm Administered Dose 500 mcg .ROUTE .ST-MED ONE Stop: 11/25/16 07:45 Gabapentin (Neurontin) 100 mg PO ONETIME ONE Stop: 11/25/16 07:46 Last Admin: 11/25/16 08:33 Dose: 100 mg Gabapentin (Neurontin) 100 mg PO BEDTIME [facility] Last Admin: 11/26/16 20:54 Dose: 100 mg Glycopyrrolate (Robinul) Confirm Administered Dose 1 mg .ROUTE .ST-MED ONE Stop: 11/25/16 07:45 Haloperidol Lactate (Haldol) 2 mg IVPUSH Q1H PRN PRN Reason: Agitation Heparin Sodium (Porcine) (Heparin Sodium) Confirm Administered Dose 5,000 units .ROUTE .ST-MED ONE Stop: 11/25/16 07:46 Heparin Sodium (Porcine) (Heparin Lock Flush 100 Units/Ml) Confirm Administered Dose 1,000 units .ROUTE .[facility]-MED ONE Stop: 11/25/16 08:51 Dextrose/Lactated Ringer's (Dextrose 5%-Lactated Ringers) 1,000 mls @ 100 mls/ hr IV ASDIRECTED [facility] Levofloxacin/Dextrose 500 mg/ (Premix) 100 mls @ 100 mls/hr IV ONETIME ONE Stop: 11/25/16 10:59 Last Admin: 11/25/16 10:00 Dose: 100 mls/hr Lidocaine HCl (Xylocaine-Mpf 1%) Confirm Administered Dose 2 mls @ as directed .ROUTE .[facility]-MED ONE Stop: 11/25/16 07:46 Dextrose/Sodium Chloride (Dextrose 5%-Normal Saline) 1,000 mls @ 100 mls/hr IV ASDIRECTED [facility] Lactated Ringer's (Ringers, Lactated) Confirm Administered Dose 1,000 mls @ as directed .ROUTE .[facility]-MED ONE Stop: 11/25/16 09:24 Sodium Chloride (Normal Saline) Confirm Administered Dose 10 mls @ as directed .ROUTE .STK-MED ONE Stop: 11/25/16 12:04 Sodium Chloride (Normal Saline) 1,000 mls @ 75 mls/hr IV ASDIRECTED [facility] Last Admin: 11/26/16 16:32 Dose: 75 mls/hr Lactated Ringer's (Ringers, Lactated) 500 mls @ 500 mls/hr IV .BOLUS SOURAV Stop: 11/25/16 18:15 Last Admin: 11/25/16 17:15 Dose: 500 mls/hr Magnesium Sulfate 2 gm/ Premix 50 mls @ 25 mls/hr IV Q6H SOURAV Stop: 11/28/16 05:59 Last Admin: 11/28/16 04:03 Dose: 25 mls/hr Lactated Ringer's (Ringers, Lactated) 500 mls @ 500 mls/hr IV .BOLUS SOURAV Stop: 11/26/16 10:01 Last Admin: 11/26/16 09:15 Dose: 500 mls/hr Lactated Ringer's (Ringers, Lactated) 500 mls @ 500 mls/hr IV .BOLUS [facility] Last Admin: 11/26/16 13:36 Dose: 500 mls/hr Acetaminophen 1,000 mg/ Premix 100 mls @ 400 mls/hr IV Q6H SOURAV Stop: 11/29/16 10:01 Last Admin: 11/29/16 10:00 Dose: 400 mls/hr Insulin Aspart (Novolog) 3 unit SUBCUT ONETIME [facility] Last Admin: 11/25/16 12:48 Dose: 3 units Insulin Detemir (Levemir) 30 unit SUBCUT ONETIME ONE Stop: 11/25/16 21:01 Last Admin: 11/25/16 21:00 Dose: 30 units Lidocaine HCl (Xylocaine 2% Viscous) Confirm Administered Dose 15 ml .ROUTE .STK -MED ONE Stop: 11/25/16 09:50 Lorazepam (Ativan) 0.5 - 1 mg IVPUSH Q4H PRN PRN Reason: Anxiety Last Admin: 11/27/16 15:30 Dose: 1 mg Lorazepam (Ativan) 1 - 2 mg IVPUSH Q1H PRN PRN Reason: Anxiety Last Admin: 11/29/16 10:10 Dose: 2 mg Meropenem (Merrem) 500 mg IRR .STK-MED ONE Stop: 11/25/16 11:41 Last Admin: 11/25/16 11:40 Dose: 500 mg Meropenem (Merrem) Confirm Administered Dose 500 mg .ROUTE .STK-MED ONE Stop: 11/25/16 12:04 Neostigmine Methylsulfate (Neostigmine) Confirm Administered Dose 5 mg .ROUTE .STK-MED ONE Stop: 11/25/16 07:45 Verify Scop Patch 0 each TOP DAILY [facility] Last Admin: 11/27/16 08:19 Dose: Not Given Ondansetron HCl (Zofran) Confirm Administered Dose 4 mg .ROUTE .STK-MED ONE Stop: 11/25/16 07:45 Propofol (Diprivan 20 Ml) Confirm Administered Dose 200 mg .ROUTE .STK-MED ONE Stop: 11/25/16 07:45 Rocuronium [place] (Zemuron) Confirm Administered Dose 50 mg .ROUTE .STK-MED ONE Stop: 11/25/16 07:45 Scopolamine (Transderm-Scop) 1.5 mg TOP Q72H [facility] Stop: 11/28/16 03:00 Last Admin: 11/25/16 09:00 Dose: 1.5 mg Succinylcholine Chloride (Quelicin) Confirm Administered Dose 200 mg .ROUTE .STK -MED ONE Stop: 11/25/16 07:45 - Exam Quality Assessment: Urine Catheter, DVT Prophylaxis General: Sedated, Lethargic Lungs: Rales, Rhonchi Cardiovascular: Regular Rate, Regular Rhythm, No Murmurs GI/Abdominal Exam: Soft, No Organomegaly, Tender. No: Distended, Guarding, Rigid, Rebound Extremities: Non-Tender, Pedal Edema Skin: Warm, Dry Consult PN Assessment/Plan Procedures: Procedures AIRWAY INHALATION TREATMENT (02/11/16) ASSAY OF CK (CPK) (01/27/16) ASSAY OF LACTIC ACID (01/27/16) ASSAY OF NATRIURETIC PEPTIDE (08/15/16) ASSAY OF TROPONIN QUANT (08/15/16) BLOOD CULTURE FOR BACTERIA (01/27/16) C-REACTIVE PROTEIN (01/27/16) CATARACT SURG W/IOL 1 STAGE (10/22/15) CHEST X-RAY 2VW FRONTAL&LATL (08/15/16) CINE/VID X-RAY THROAT/ESOPH (12/10/14) COMPLETE CBC W/AUTO DIFF WBC (08/15/16) COMPREHEN METABOLIC PANEL (08/15/16) CT ABDOMEN W/DYE (11/24/16) CT ANGIOGRAPHY CHEST (08/05/15) CT THORAX W/DYE (11/24/16) CULTURE SCREEN ONLY (12/05/14) EGD BIOPSY SINGLE/MULTIPLE (12/05/14) ELECTROCARDIOGRAM TRACING (08/15/16) EMERGENCY DEPT VISIT (08/15/16) EMERGENCY DEPT VISIT (02/11/16) EMERGENCY DEPT VISIT (01/27/16) EMERGENCY DEPT VISIT (07/23/14) EMERGENCY DEPT VISIT (07/23/14) EMERGENCY DEPT VISIT (02/01/14) EMERGENCY DEPT VISIT (11/17/13) EMERGENCY DEPT VISIT (11/17/13) FIBRIN DEGRADATION QUANT (08/05/15) GLUCOSE BLOOD TEST (01/27/16) METABOLIC PANEL TOTAL CA (01/27/16) MOTION FLUOROSCOPY/SWALLOW (12/10/14) ROUTINE VENIPUNCTURE (08/15/16) THER/PROPH/DIAG IV INF ADDON (01/27/16) THER/PROPH/DIAG IV INF INIT (01/27/16) TTE W/DOPPLER COMPLETE (02/12/15) URINALYSIS AUTO W/SCOPE (01/27/16) URINE CULTURE/COLONY COUNT (01/27/16) Problem List Initiated/Reviewed/Updated: Yes My Orders Last 24 Hours: My Active Orders 11/29/16 10:15 Haloperidol Lactate [Haldol] 1 mg IVPUSH Q1H PRN LORazepam [Ativan] 0.5 mg IVPUSH Q2H PRN Plan: ASSESSMENT AND PLAN - 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 Mckeon Hypoxic and hypercapnic respiratory failure- likely multifactorial with pulmonary edema and probable hypoventilation related to pain medication and recent surgery. She was significantly up on fluid following the surgery and has been modestly diuresed over the past 24 hours without significant improvement in oxygenation. She is adamantly refused any consideration of intubation or mechanical ventilation. Diuresis suboptimal over the past 24 hours we'll plan to increase dose of diuretic therapy -Cardiac monitoring -2 mg of bumetanide twice daily -Continue medical management -Supplement oxygen -Intake and output monitoring -Consider echocardiogram when heart rate is under better control COPD - no evidence for acute exacerbation at this time. -Continue current respiratory treatments Insulin-dependent diabetes - sugars have been tolerable so far. -Continue current management
[2016-11-29] MEDS: NACL IV SCH (12:18)
[2016-11-29] MEDS: DEXTROSE IV SCH (12:18)
[2016-11-29] MEDS: NALOXONE IV SCH (12:18)
--- NOTE | 2016-11-29 14:49 | PCM.SURGPN ---
- General Info Date of Service: 11/29/16 Date of Surgery/Procedure: 11/25/16 POD#: 4 Post-Op Diagnosis: right lung mass Functional Status: Reports: Pain Controlled, Urinating - Review of Systems General: Reports: No Symptoms HEENT: Reports: No Symptoms Pulmonary: Reports: No Symptoms Cardiovascular: Reports: No Symptoms Gastrointestinal: Reports: No Symptoms Genitourinary: Reports: No Symptoms Musculoskeletal: Reports: No Symptoms Skin: Reports: No Symptoms Neurological: Reports: No Symptoms Psychiatric: Reports: No Symptoms Systems Review Comment:: Ruthie continues to require BiPAP with FiO2 at 40. Chest tube had 300 cc this am and she has had good urine output per nursing. She was sedated during exam this morning and afternoon - Patient Data Vitals - Most Recent: Last Vital Signs Temp 37.0 C 11/29/16 07:00 Pulse 102 H 11/29/16 14:00 Resp 17 11/29/16 14:00 BP 118/81 11/29/16 14:00 Pulse Ox 95 11/29/16 14:00 Weight - Most Recent: 97.4 kg I&O - Last 24 Hours: Intake & Output 11/28/16 11/29/16 11/29/16 22:59 06:59 14:59 Intake Total 1611 1403 Output Total 422 349 5881 Balance 1001 453 -1165 Lab Results Last 24 Hrs: Laboratory Results - last 24 hr 11/24/16 11/28/16 11/29/16 Range/Units 13:10 17:00 04:13 WBC 8.1 (4.5-11.0) K/uL RBC 3.08 L (3.30-5.50) M/uL Hgb 9.0 L (12.0-15.0) g/dL Hct 27.6 L (36.0-48.0) % MCV 90 (80-98) fL MCH 29 (27-31) pg MCHC 33 (32-36) % Plt Count 174 (150-400) K/uL Puncture Site Line ABG pH 7.283 L (7.350-7.450) ABG pCO2 56.9 H (35.0-42.0) mmHg ABG pO2 76.2 (75.0-100.0) mmHg ABG HCO3 26.1 H (22.0-26.0) mmol/L ABG Total CO2 25.1 H (21.0-25.0) mmol/L ABG O2 Saturation 94.5 L (95.0-98.0) % ABG O2 Content 12.0 L (15.0-23.0) %vol ABG Base Excess -0.5 mm/L ABG Hemoglobin 9.2 L (12.0-16.0) g/dL ABG Oxyhemoglobin 92.6 % ABG Carboxyhemoglobin 1.5 (0.0-1.6) % ABG Methemoglobin 0.5 % Mo Test Line O2 Delivery Device Bipap Oxygen Flow Rate L Sodium (140-148) mmol/L Potassium (3.6-5.2) mmol/L Chloride (100-108) mmol/L Carbon Dioxide (21-32) mmol/L Anion Gap (5.0-14.0) mmol/L BUN (7-18) mg/dL Creatinine (0.6-1.0) mg/dL Est Cr Clr Drug Dosing mL/min Estimated GFR (MDRD) (>60) Glucose (74-106) mg/dL Calcium (8.5-10.1) mg/dL Phosphorus (2.5-4.9) mg/dL Magnesium (1.8-2.4) mg/dL Total Bilirubin (0.2-1.0) mg/dL AST (15-37) U/L ALT (12-78) U/L Alkaline Phosphatase (46-116) U/L NT-Pro-B Natriuret Pep (5-125) pg/mL Total Protein (6.4-8.2) g/dL Albumin (3.4-5.0) g/dL Globulin (2.3-3.5) g/dL Albumin/Globulin Ratio (1.2-2.2) Crossmatch See Detail 11/29/16 11/29/16 Range/Units 04:13 04:13 WBC (4.5-11.0) K/uL RBC (3.30-5.50) M/uL Hgb (12.0-15.0) g/dL Hct (36.0-48.0) % MCV (80-98) fL MCH (27-31) pg MCHC (32-36) % Plt Count (150-400) K/uL Puncture Site Line ABG pH 7.322 L (7.350-7.450) ABG pCO2 53.1 H (35.0-42.0) mmHg ABG pO2 74.0 L (75.0-100.0) mmHg ABG HCO3 26.7 H (22.0-26.0) mmol/L ABG Total CO2 25.5 H (21.0-25.0) mmol/L ABG O2 Saturation 94.8 L (95.0-98.0) % ABG O2 Content 11.8 L (15.0-23.0) %vol ABG Base Excess 0.8 mm/L ABG Hemoglobin 9.1 L (12.0-16.0) g/dL ABG Oxyhemoglobin 92.1 % ABG Carboxyhemoglobin 2.5 H (0.0-1.6) % ABG Methemoglobin 0.3 % Mo Test O2 Delivery Device Bipap Oxygen Flow Rate L Sodium 136 L (140-148) mmol/L Potassium 3.5 L (3.6-5.2) mmol/L Chloride 102 (100-108) mmol/L Carbon Dioxide 29 (21-32) mmol/L Anion Gap 8.5 (5.0-14.0) mmol/L BUN 12 (7-18) mg/dL Creatinine 1.0 (0.6-1.0) mg/dL Est Cr Clr Drug Dosing 35.99 mL/min Estimated GFR (MDRD) 54 L (>60) Glucose 175 H (74-106) mg/dL Calcium 7.3 L (8.5-10.1) mg/dL Phosphorus 2.8 (2.5-4.9) mg/dL Magnesium 1.9 (1.8-2.4) mg/dL Total Bilirubin 1.0 D (0.2-1.0) mg/dL AST 82 H (15-37) U/L ALT 30 (12-78) U/L Alkaline Phosphatase 55 (46-116) U/L NT-Pro-B Natriuret Pep 1517 H (5-125) pg/mL Total Protein 6.1 L (6.4-8.2) g/dL Albumin 2.2 L (3.4-5.0) g/dL Globulin 3.9 H (2.3-3.5) g/dL Albumin/Globulin Ratio 0.6 L (1.2-2.2) Crossmatch Med Orders - Current: Current Medications Acetylcysteine (Mucomyst 20%) 200 mg INH BIDRT ON LICENSE OF [facility] Last Admin: 11/29/16 07:17 Dose: 200 mg Albuterol/Ipratropium (Duoneb 3.0-0.5 Mg/3 Ml) 3 ml INH QIDRT ON LICENSE OF [facility] Last Admin: 11/29/16 10:54 Dose: 3 ml Albuterol/Ipratropium (Duoneb 3.0-0.5 Mg/3 Ml) 3 ml INH ASDIRECTED PRN PRN Reason: Shortness of Breath Aspirin (Halfprin) 81 mg PO DAILY ON LICENSE OF [facility] Last Admin: 11/29/16 09:55 Dose: Not Given Bumetanide (Bumex) 1 mg IV Q8H ON LICENSE OF [facility] Stop: 11/30/16 00:01 Last Admin: 11/29/16 08:12 Dose: 1 mg Dextrose (Glutose 15) 15 gm PO ASDIRECTED PRN PRN Reason: HYPOGLYCEMIA Dextrose/Water (Dextrose 50% In Water) 50 ml IVPUSH ASDIRECTED PRN PRN Reason: HYPOGLYCEMIA Diphenhydramine HCl (Benadryl) 25 mg IVPUSH Q6H PRN PRN Reason: ITCHING Last Admin: 11/27/16 17:52 Dose: 25 mg Docusate Sodium (Colace) 100 mg PO BID ON LICENSE OF [facility] Last Admin: 11/29/16 09:55 Dose: Not Given Glucagon (Glucagen) 1 mg IM ASDIRECTED PRN PRN Reason: HYPOGLYCEMIA Haloperidol Lactate (Haldol) 1 mg IVPUSH Q1H PRN PRN Reason: Agitation Fentanyl 2,500 mcg/ Sodium (Chloride) 250 mls @ 0 mls/hr EPIDUR TITRATE ON LICENSE OF [facility]; Titrate PRN Reason: Protocol Last Admin: 11/28/16 22:38 Dose: 8 mls/hr, 8 mls/hr Naloxone HCl 0.4 mg/ Dextrose/ (Sodium Chloride) 1,001 mls @ 100 mls/hr IV ASDIRECTED ON LICENSE OF [facility] Last Admin: 11/29/16 12:18 Dose: 100 mls/hr Levofloxacin/Dextrose 500 mg/ (Premix) 100 mls @ 100 mls/hr IV Q24H ON LICENSE OF [facility] Last Admin: 11/29/16 10:00 Dose: 100 mls/hr Heparin Sodium (Porcine) 5,000 (units/ Sodium Chloride) 501 mls @ 1 mls/hr IV ASDIRECTED ON LICENSE OF [facility] Last Admin: 11/28/16 14:32 Dose: 1 mls/hr Heparin Sodium (Porcine) 5,000 (units/ Sodium Chloride) 501 mls @ 1 mls/hr IV ASDIRECTED ON LICENSE OF [facility] Last Admin: 11/28/16 14:32 Dose: 1 mls/hr Potassium Phosphate 20 mmole/ (Sodium Chloride) 156.6667 mls @ 52 mls/hr IV Q3H [facility] Stop: 11/29/16 16:59 Last Admin: 11/29/16 14:36 Dose: 52 mls/hr Sodium Chloride (Normal Saline) 1,000 mls @ 25 mls/hr IV ASDIRECTED ON LICENSE OF [facility] Insulin Aspart (Novolog) 0 unit SUBCUT Q6H PRN; Protocol PRN Reason: MEDIUM CORRECTIONAL DOSE Last Admin: 11/29/16 13:08 Dose: 3 units Levothyroxine Sodium 100 mcg/ (Levothyroxine Sodium 25 mcg) 125 mcg PO ACBREAKFAST ON LICENSE OF [facility] Last Admin: 11/29/16 08:09 Dose: Not Given Lorazepam (Ativan) 0.5 mg IVPUSH Q2H PRN PRN Reason: Anxiety Last Admin: 11/29/16 14:34 Dose: 0.5 mg Naloxone HCl (Narcan) 0.1 mg IVPUSH Q5M PRN PRN Reason: RESP RATE LESS THAN 6/MINUTE Ondansetron HCl (Zofran) 4 mg IV Q4H PRN PRN Reason: N/V Last Admin: 11/26/16 17:53 Dose: 4 mg Pantoprazole Sodium (Protonix Iv) 40 mg IV Q24H ON LICENSE OF [facility] Last Admin: 11/28/16 16:07 Dose: 40 mg Advair 100/50 (Inhaler (Ptom)) 0 each INH BIDRT ON LICENSE OF [facility] Last Admin: 11/29/16 07:19 Dose: 1 each Senna/Docusate Sodium (Senna Plus) 2 tab PO DAILY ON LICENSE OF [facility] Last Admin: 11/29/16 09:55 Dose: Not Given Sotalol HCl (Betapace) 80 mg PO BID ON LICENSE OF [facility] Last Admin: 11/29/16 09:55 Dose: Not Given Spironolactone (Aldactone) 25 mg PO BEDTIME ON LICENSE OF [facility] Last Admin: 11/28/16 20:36 Dose: 25 mg Venlafaxine HCl (Effexor Xr) 75 mg PO DAILY ON LICENSE OF [facility] Last Admin: 11/29/16 09:55 Dose: Not Given Discontinued Medications Albuterol (Proventil Neb Soln) Confirm Administered Dose 2.5 mg .ROUTE .STK-MED ONE Stop: 11/25/16 07:56 Last Admin: 11/25/16 08:03 Dose: 2.5 mg Albuterol/Ipratropium (Duoneb 3.0-0.5 Mg/3 Ml) 3 ml NEB ONETIME ONE Stop: 11/25/16 10:01 Last Admin: 11/25/16 09:00 Dose: 3 ml Amitriptyline HCl (Elavil) 50 mg PO BEDTIME ON LICENSE OF [facility] Last Admin: 11/26/16 20:54 Dose: 50 mg Bumetanide (Bumex) 1 mg IVPUSH ONETIME ONE Stop: 11/26/16 17:21 Last Admin: 11/26/16 17:49 Dose: 1 mg Bumetanide (Bumex) 1 mg IVPUSH Q12H ON LICENSE OF [facility] Stop: 11/27/16 20:01 Last Admin: 11/27/16 08:05 Dose: 1 mg Bumetanide (Bumex) 2 mg IVPUSH ONETIME ONE Stop: 11/27/16 15:01 Last Admin: 11/27/16 14:58 Dose: 2 mg Bumetanide (Bumex) 1 mg IV Q12H [facility] Stop: 11/28/16 20:01 Last Admin: 11/28/16 19:56 Dose: 1 mg Bupivacaine HCl/Epinephrine Bitart (Marcaine 0.5%/Epinephrine 1:200,000) Confirm Administered Dose 50 ml .ROUTE .STK-MED ONE Stop: 11/25/16 12:04 Bupivacaine HCl/Epinephrine Bitart (Marcaine 0.5%/Epinephrine 1:200,000) 18 ml INJECT .STK-MED ONE Stop: 11/25/16 12:01 Last Admin: 11/25/16 12:00 Dose: 18 ml Carvedilol (Coreg) 6.25 mg PO BID ON LICENSE OF [facility] Last Admin: 11/26/16 15:15 Dose: 6.25 mg Dexamethasone (Dexamethasone) Confirm Administered Dose 4 mg .ROUTE .STK-MED ONE Stop: 11/25/16 07:45 Enalapril Maleate (Vasotec) 2.5 mg PO BEDTIME ON LICENSE OF [facility] Last Admin: 11/26/16 20:54 Dose: 2.5 mg Fentanyl Citrate (Fentanyl) Confirm Administered Dose 500 mcg .ROUTE .STK-MED ONE Stop: 11/25/16 07:45 Gabapentin (Neurontin) 100 mg PO ONETIME ONE Stop: 11/25/16 07:46 Last Admin: 11/25/16 08:33 Dose: 100 mg Gabapentin (Neurontin) 100 mg PO BEDTIME ON LICENSE OF [facility] Last Admin: 11/26/16 20:54 Dose: 100 mg Glycopyrrolate (Robinul) Confirm Administered Dose 1 mg .ROUTE .ST-MED ONE Stop: 11/25/16 07:45 Haloperidol Lactate (Haldol) 2 mg IVPUSH Q1H PRN PRN Reason: Agitation Heparin Sodium (Porcine) (Heparin Sodium) Confirm Administered Dose 5,000 units .ROUTE .ST-MED ONE Stop: 11/25/16 07:46 Heparin Sodium (Porcine) (Heparin Lock Flush 100 Units/Ml) Confirm Administered Dose 1,000 units .ROUTE .ST-MED ONE Stop: 11/25/16 08:51 Dextrose/Lactated Ringer's (Dextrose 5%-Lactated Ringers) 1,000 mls @ 100 mls/ hr IV ASDIRECTED ON LICENSE OF [facility] Levofloxacin/Dextrose 500 mg/ (Premix) 100 mls @ 100 mls/hr IV ONETIME ONE Stop: 11/25/16 10:59 Last Admin: 11/25/16 10:00 Dose: 100 mls/hr Lidocaine HCl (Xylocaine-Mpf 1%) Confirm Administered Dose 2 mls @ as directed .ROUTE .ST-MED ONE Stop: 11/25/16 07:46 Dextrose/Sodium Chloride (Dextrose 5%-Normal Saline) 1,000 mls @ 100 mls/hr IV ASDIRECTED ON LICENSE OF [facility] Lactated Ringer's (Ringers, Lactated) Confirm Administered Dose 1,000 mls @ as directed .ROUTE .ST-MED ONE Stop: 11/25/16 09:24 Sodium Chloride (Normal Saline) Confirm Administered Dose 10 mls @ as directed .ROUTE .ST-MED ONE Stop: 11/25/16 12:04 Sodium Chloride (Normal Saline) 1,000 mls @ 75 mls/hr IV ASDIRECTED [facility] Last Admin: 11/26/16 16:32 Dose: 75 mls/hr Lactated Ringer's (Ringers, Lactated) 500 mls @ 500 mls/hr IV .BOLUS [facility] Stop: 11/25/16 18:15 Last Admin: 11/25/16 17:15 Dose: 500 mls/hr Magnesium Sulfate 2 gm/ Premix 50 mls @ 25 mls/hr IV Q6H [facility] Stop: 11/28/16 05:59 Last Admin: 11/28/16 04:03 Dose: 25 mls/hr Lactated Ringer's (Ringers, Lactated) 500 mls @ 500 mls/hr IV .BOLUS [facility] Stop: 11/26/16 10:01 Last Admin: 11/26/16 09:15 Dose: 500 mls/hr Lactated Ringer's (Ringers, Lactated) 500 mls @ 500 mls/hr IV .BOLUS ON LICENSE OF [facility] Last Admin: 11/26/16 13:36 Dose: 500 mls/hr Dextrose/Sodium Chloride (Dextrose 5%-Normal Saline) 1,000 mls @ 75 mls/hr IV ASDIRECTED [facility] Last Admin: 11/28/16 08:46 Dose: 75 mls/hr Sodium Chloride (Normal Saline) 1,000 mls @ 25 mls/hr IV ASDIRECTED ON LICENSE OF [facility] Last Admin: 11/28/16 08:45 Dose: 25 mls/hr Acetaminophen 1,000 mg/ Premix 100 mls @ 400 mls/hr IV Q6H [facility] Stop: 11/29/16 10:01 Last Admin: 11/29/16 10:00 Dose: 400 mls/hr Insulin Aspart (Novolog) 3 unit SUBCUT ONETIME [facility] Last Admin: 11/25/16 12:48 Dose: 3 units Insulin Detemir (Levemir) 30 unit SUBCUT ONETIME ONE Stop: 11/25/16 21:01 Last Admin: 11/25/16 21:00 Dose: 30 units Lidocaine HCl (Xylocaine 2% Viscous) Confirm Administered Dose 15 ml .ROUTE .STK -MED ONE Stop: 11/25/16 09:50 Lorazepam (Ativan) 0.5 - 1 mg IVPUSH Q4H PRN PRN Reason: Anxiety Last Admin: 11/27/16 15:30 Dose: 1 mg Lorazepam (Ativan) 1 - 2 mg IVPUSH Q1H PRN PRN Reason: Anxiety Last Admin: 11/29/16 10:10 Dose: 2 mg Meropenem (Merrem) 500 mg IRR .STK-MED ONE Stop: 11/25/16 11:41 Last Admin: 11/25/16 11:40 Dose: 500 mg Meropenem (Merrem) Confirm Administered Dose 500 mg .ROUTE .STK-MED ONE Stop: 11/25/16 12:04 Neostigmine Methylsulfate (Neostigmine) Confirm Administered Dose 5 mg .ROUTE .STK-MED ONE Stop: 11/25/16 07:45 Verify Scop Patch 0 each TOP DAILY ON LICENSE OF [facility] Last Admin: 11/27/16 08:19 Dose: Not Given Ondansetron HCl (Zofran) Confirm Administered Dose 4 mg .ROUTE .STK-MED ONE Stop: 11/25/16 07:45 Propofol (Diprivan 20 Ml) Confirm Administered Dose 200 mg .ROUTE .STK-MED ONE Stop: 11/25/16 07:45 Rocuronium [place] (Zemuron) Confirm Administered Dose 50 mg .ROUTE .STK-MED ONE Stop: 11/25/16 07:45 Scopolamine (Transderm-Scop) 1.5 mg TOP Q72H ON LICENSE OF [facility] Stop: 11/28/16 03:00 Last Admin: 11/25/16 09:00 Dose: 1.5 mg Succinylcholine Chloride (Quelicin) Confirm Administered Dose 200 mg .ROUTE .STK -MED ONE Stop: 11/25/16 07:45 - Exam Wound/Incisions: Healing Well Quality Assessment: Central Line/PICC, Urine Catheter, DVT Prophylaxis General: Sedated, Lethargic HEENT: Other (eyes were closed during exam) Neck: Supple Lungs: Rales Cardiovascular: Regular Rate, Regular Rhythm GI/Abdominal Exam: Soft, No Organomegaly, Tender Extremities: Normal Inspection Skin: Warm, Dry Neurological: No New Focal Deficit Psy/Mental Status: Other (Sedated during exam ) - Problem List Review Problem List Initiated/Reviewed/Updated: Yes - My Orders Last 24 Hours: Active Orders 24 hr Category Date Time Status Communication Order [RC] ROUTINE Care 11/29/16 06:30 Active Chest 1V Frontal [CR] DAILY Exams 11/30/16 04:00 Ordered ABG [BLOOD GAS ARTERIAL] [BG] Routine Lab 11/30/16 04:00 Ordered CBC W/O DIFF,HEMOGRAM [HEME] Routine Lab 11/30/16 04:00 Ordered COMPREHENSIVE METABOLIC PN,CMP [CHEM] Routine Lab 11/30/16 04:00 Ordered MAGNESIUM [CHEM] Routine Lab 11/30/16 04:00 Ordered PHOSPHORUS [CHEM] 0400 Lab 11/30/16 04:00 Ordered RED BLOOD CELLS LP [BBK] Routine Lab 11/30/16 05:00 Ordered Bumetanide [Bumex] Med 11/29/16 08:00 Active 1 mg IV Q8H Haloperidol Lactate [Haldol] Med 11/29/16 10:15 Active 1 mg IVPUSH Q1H PRN LORazepam [Ativan] Med 11/29/16 10:15 Active 0.5 mg IVPUSH Q2H PRN Potassium Phosphates 20 mmole Med 11/29/16 08:00 Active Sodium Chloride 0.9% [Normal Saline] 150 ml IV Q3H Sodium Chloride 0.9% [Normal Saline] 1,000 ml Med 11/29/16 10:30 Active IV ASDIRECTED Medication Orders Acetylcysteine (Mucomyst 20%) 200 mg INH BIDRT ON LICENSE OF [facility] Last Admin: 11/29/16 07:17 Dose: 200 mg Admin: 11/28/16 20:43 Dose: 200 mg Admin: 11/28/16 07:20 Dose: 200 mg Admin: 11/27/16 21:34 Dose: 200 mg Admin: 11/27/16 08:05 Dose: 200 mg Albuterol/Ipratropium (Duoneb 3.0-0.5 Mg/3 Ml) 3 ml INH QIDRT ON LICENSE OF [facility] Last Admin: 11/29/16 10:54 Dose: 3 ml Admin: 11/29/16 07:17 Dose: 3 ml Admin: 11/28/16 20:35 Dose: 3 ml Admin: 11/28/16 14:35 Dose: 3 ml Admin: 11/28/16 11:01 Dose: 3 ml Admin: 11/28/16 07:20 Dose: 3 ml Admin: 11/27/16 21:34 Dose: 3 ml Admin: 11/27/16 14:43 Dose: 3 ml Admin: 11/27/16 10:52 Dose: 3 ml Admin: 11/27/16 07:06 Dose: 3 ml Admin: 11/26/16 20:52 Dose: 3 ml Admin: 11/26/16 14:41 Dose: 3 ml Admin: 11/26/16 10:53 Dose: 3 ml Admin: 11/26/16 07:15 Dose: 3 ml Admin: 11/25/16 21:04 Dose: Not Given Admin: 11/25/16 15:34 Dose: 3 ml Albuterol/Ipratropium (Duoneb 3.0-0.5 Mg/3 Ml) 3 ml INH ASDIRECTED PRN PRN Reason: Shortness of Breath Aspirin (Halfprin) 81 mg PO DAILY ON LICENSE OF [facility] Last Admin: 11/29/16 09:55 Dose: Not Given Admin: 11/28/16 10:08 Dose: 81 mg Admin: 11/27/16 08:04 Dose: 81 mg Admin: 11/26/16 09:04 Dose: 81 mg Bumetanide (Bumex) 1 mg IV Q8H ON LICENSE OF [facility] Stop: 11/30/16 00:01 Last Admin: 11/29/16 08:12 Dose: 1 mg Dextrose (Glutose 15) 15 gm PO ASDIRECTED PRN PRN Reason: HYPOGLYCEMIA Dextrose/Water (Dextrose 50% In Water) 50 ml IVPUSH ASDIRECTED PRN PRN Reason: HYPOGLYCEMIA Diphenhydramine HCl (Benadryl) 25 mg IVPUSH Q6H PRN PRN Reason: ITCHING Last Admin: 11/27/16 17:52 Dose: 25 mg Docusate Sodium (Colace) 100 mg PO BID ON LICENSE OF [facility] Last Admin: 11/29/16 09:55 Dose: Not Given Admin: 11/28/16 21:07 Dose: 100 mg Admin: 11/28/16 10:08 Dose: 100 mg Admin: 11/27/16 21:35 Dose: Not Given Admin: 11/27/16 08:03 Dose: 100 mg Admin: 11/26/16 20:53 Dose: 100 mg Admin: 11/26/16 09:04 Dose: 100 mg Glucagon (Glucagen) 1 mg IM ASDIRECTED PRN PRN Reason: HYPOGLYCEMIA Haloperidol Lactate (Haldol) 1 mg IVPUSH Q1H PRN PRN Reason: Agitation Fentanyl 2,500 mcg/ Sodium (Chloride) 250 mls @ 0 mls/hr EPIDUR TITRATE [facility]; Titrate PRN Reason: Protocol Last Admin: 11/28/16 22:38 Dose: 8 mls/hr, 8 mls/hr Titration: 11/28/16 22:16 Dose: 8 mls/hr, 8 mls/hr Admin: 11/27/16 15:01 Dose: 8 mls/hr, 8 mls/hr Titration: 11/27/16 15:01 Dose: 8 mls/hr, 8 mls/hr Admin: 11/26/16 15:26 Dose: 8 mls/hr, 8 mls/hr Titration: 11/26/16 15:26 Dose: 8 mls/hr, 8 mls/hr Admin: 11/25/16 15:07 Dose: 8 mls/hr, 8 mls/hr Naloxone HCl 0.4 mg/ Dextrose/ (Sodium Chloride) 1,001 mls @ 100 mls/hr IV ASDIRECTED [facility] Last Admin: 11/29/16 12:18 Dose: 100 mls/hr Infusion: 11/29/16 09:10 Dose: 100 mls/hr Admin: 11/28/16 23:09 Dose: 100 mls/hr Infusion: 11/28/16 05:33 Dose: 100 mls/hr Admin: 11/27/16 19:32 Dose: 100 mls/hr Infusion: 11/27/16 01:15 Dose: 100 mls/hr Admin: 11/26/16 15:14 Dose: 100 mls/hr Infusion: 11/26/16 14:14 Dose: 100 mls/hr Admin: 11/26/16 04:13 Dose: 100 mls/hr Infusion: 11/26/16 04:13 Dose: 100 mls/hr Admin: 11/25/16 18:19 Dose: 100 mls/hr Levofloxacin/Dextrose 500 mg/ (Premix) 100 mls @ 100 mls/hr IV Q24H [facility] Last Admin: 11/29/16 10:00 Dose: 100 mls/hr Infusion: 11/28/16 11:47 Dose: 100 mls/hr Admin: 11/28/16 10:47 Dose: 100 mls/hr Infusion: 11/27/16 10:41 Dose: 100 mls/hr Admin: 11/27/16 09:41 Dose: 100 mls/hr Infusion: 11/26/16 11:25 Dose: 100 mls/hr Admin: 11/26/16 10:25 Dose: 100 mls/hr Heparin Sodium (Porcine) 5,000 (units/ Sodium Chloride) 501 mls @ 1 mls/hr IV ASDIRECTED [facility] Last Admin: 11/28/16 14:32 Dose: 1 mls/hr Infusion: 11/28/16 14:32 Dose: 1 mls/hr Admin: 11/25/16 16:12 Dose: 1 mls/hr Heparin Sodium (Porcine) 5,000 (units/ Sodium Chloride) 501 mls @ 1 mls/hr IV ASDIRECTED [facility] Last Admin: 11/28/16 14:32 Dose: 1 mls/hr Potassium Phosphate 20 mmole/ (Sodium Chloride) 156.6667 mls @ 52 mls/hr IV Q3H [facility] Stop: 11/29/16 16:59 Last Admin: 11/29/16 14:36 Dose: 52 mls/hr Infusion: 11/29/16 14:36 Dose: 52 mls/hr Admin: 11/29/16 11:35 Dose: 52 mls/hr Infusion: 11/29/16 11:14 Dose: 52 mls/hr Admin: 11/29/16 08:13 Dose: 52 mls/hr Sodium Chloride (Normal Saline) 1,000 mls @ 25 mls/hr IV ASDIRECTED ON LICENSE OF [facility] Insulin Aspart (Novolog) 0 unit SUBCUT Q6H PRN; Protocol PRN Reason: MEDIUM CORRECTIONAL DOSE Last Admin: 11/29/16 13:08 Dose: 3 units Admin: 11/29/16 08:14 Dose: 2 units Admin: 11/28/16 20:47 Dose: 2 units Admin: 11/28/16 17:16 Dose: 2 units Admin: 11/28/16 11:09 Dose: 2 units Admin: 11/28/16 08:01 Dose: 2 units Admin: 11/27/16 21:49 Dose: 3 units Admin: 11/27/16 17:25 Dose: 3 units Admin: 11/27/16 12:19 Dose: 2 units Admin: 11/27/16 08:15 Dose: 3 units Admin: 11/26/16 20:49 Dose: 2 units Admin: 11/26/16 17:26 Dose: 1 units Admin: 11/26/16 12:11 Dose: 2 units Admin: 11/25/16 21:02 Dose: 5 units Admin: 11/25/16 17:15 Dose: 3 units Levothyroxine Sodium 100 mcg/ (Levothyroxine Sodium 25 mcg) 125 mcg PO ACBREAKFAST [facility] Last Admin: 11/29/16 08:09 Dose: Admin: 11/28/16 10:09 Dose: 125 mcg Admin: 11/27/16 08:05 Dose: 125 mcg Admin: 11/26/16 07:40 Dose: 125 mcg Lorazepam (Ativan) 0.5 mg IVPUSH Q2H PRN PRN Reason: Anxiety Last Admin: 11/29/16 14:34 Dose: 0.5 mg Naloxone HCl (Narcan) 0.1 mg IVPUSH Q5M PRN PRN Reason: RESP RATE LESS THAN 6/MINUTE Ondansetron HCl (Zofran) 4 mg IV Q4H PRN PRN Reason: N/V Last Admin: 11/26/16 17:53 Dose: 4 mg Admin: 11/25/16 20:25 Dose: 4 mg Pantoprazole Sodium (Protonix Iv) 40 mg IV Q24H [facility]V Last Admin: 11/28/16 16:07 Dose: 40 mg Admin: 11/27/16 16:12 Dose: 40 mg Admin: 11/26/16 15:17 Dose: 40 mg Admin: 11/25/16 15:34 Dose: 40 mg Advair 100/50 (Inhaler (Ptom)) 0 each INH BIDRT SOURAV Last Admin: 11/29/16 07:19 Dose: 1 each Admin: 11/28/16 20:44 Dose: 1 each Admin: 11/28/16 10:43 Dose: Not Given Admin: 11/27/16 21:03 Dose: Not Given Admin: 11/27/16 07:06 Dose: 1 each Admin: 11/26/16 20:54 Dose: 1 each Admin: 11/26/16 07:15 Dose: 1 each Admin: 11/25/16 21:07 Dose: 1 each Senna/Docusate Sodium (Senna Plus) 2 tab PO DAILY SOURAV Last Admin: 11/29/16 09:55 Dose: Not Given Admin: 11/28/16 10:08 Dose: 2 tab Admin: 11/27/16 08:03 Dose: 2 tab Admin: 11/26/16 09:04 Dose: 2 tab Sotalol HCl (Betapace) 80 mg PO BID ON LICENSE OF [facility] Last Admin: 11/29/16 09:55 Dose: Not Given Admin: 11/28/16 20:36 Dose: 80 mg Admin: 11/28/16 10:06 Dose: 80 mg Admin: 11/27/16 21:03 Dose: Not Given Admin: 11/27/16 08:04 Dose: 80 mg Admin: 11/26/16 20:53 Dose: 80 mg Admin: 11/26/16 15:14 Dose: 80 mg Admin: 11/26/16 09:07 Dose: Admin: 11/25/16 21:05 Dose: 80 mg Spironolactone (Aldactone) 25 mg PO BEDTIME ON LICENSE OF [facility] Last Admin: 11/28/16 20:36 Dose: 25 mg Admin: 11/27/16 21:02 Dose: Not Given Admin: 11/26/16 20:53 Dose: 25 mg Admin: 11/25/16 21:04 Dose: 25 mg Venlafaxine HCl (Effexor Xr) 75 mg PO DAILY ON LICENSE OF [facility] Last Admin: 11/29/16 09:55 Dose: Not Given Admin: 11/28/16 10:08 Dose: 75 mg Admin: 11/27/16 08:04 Dose: 75 mg Admin: 11/26/16 09:04 Dose: 75 mg - Assessment Assessment (Free Text/Narrative):: 1. 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 2. Status post central venous catheter insertion. - Plan Plan (Free Text/Narrative):: 1. Bumex 1 mg IVP q 8 hours. 2. K phos 60 mmol IVPB, give via central line with minimal volume. 3. Type and cross 2 units PRBC in am. 4. CBC, CMP, Mg, Phos, BNP, ABGs in am. 5. Take down of dressing. Dress chest tubes daily with 4x4s. ANNA MARIE FishS
[2016-11-29] MEDS: Haloperidol Lactate 5 MG/ML SDV IVPUSH PRN ×2 (15:29→19:32)
[2016-11-29] MEDS: Pantoprazole 40 MG Vial IV SCH (15:29)
[2016-11-29] MEDS ORDERED: Piperacillin/Tazobactam 3.375 GM in Sodium Chloride 0.9% 50 ML IV SCH (20:45)
[2016-11-29] MEDS ORDERED: Piperacillin/Tazobactam 2.25 GM in Sodium Chloride 0.9% 50 ML IV SCH (21:00)
[2016-11-29] MEDS: Spironolactone 25 MG Tab PO SCH (21:40)
[2016-11-29] MEDS ORDERED: Sodium Chloride 0.9% 50 ML ONE (22:15)
[2016-11-29] MEDS: Piperacillin/Tazobactam/Dext 3.375 GM in Premix Bag 1 BAG IV SCH (22:32)
[2016-11-29] MEDS: Linezolid 600 MG in Premix Bag 1 BAG IV SCH (22:50)
[2016-11-30] MEDS: Bumetanide 1 MG/4 ML MDV IV SCH (00:09)
[2016-11-30] MEDS: Acetaminophen 1,000 MG in Premix Bag 1 BAG IV SCH ×4 (03:05→20:33)
[2016-11-30] MEDS ORDERED: Sodium Chloride 0.9% 50 ML ONE (03:27)
[2016-11-30] MEDS: Sodium Chloride 0.9% 1,000 ML IV SCH ×2 (05:00→18:39)
[2016-11-30] MEDS: fentaNYL 2,500 MCG in Sodium Chloride 0.9% 200 ML EPIDUR SCH (05:25)
[2016-11-30] MEDS: Piperacillin/Tazobactam/Dext 3.375 GM in Premix Bag 1 BAG IV SCH ×4 (06:12→23:37)
[2016-11-30] MEDS: Albuterol/Ipratropium 3.0-0.5 MG/3 ML Neb Soln INH SCH ×4 (07:02→21:04)
[2016-11-30] MEDS: ADVAIR INH SCH ×2 (07:02→20:10)
[2016-11-30] MEDS: Acetylcysteine 20% 200 MG/ML 4 ML Nebulizer Soln SDV INH SCH ×2 (07:02→21:04)
[2016-11-30] MEDS ORDERED: Levofloxacin/Dextrose 5%-Water 500 MG in Premix Bag 1 BAG IV SCH (07:30)
[2016-11-30] MEDS: Levothyroxine 100 MCG, Levothyroxine 25 MCG PO SCH ×2 (07:32)
[2016-11-30] MEDS: Insulin Aspart 100 Units/ML 3 ML Pen SUBCUT PRN ×4 (07:52→21:26)
[2016-11-30] MEDS: Bumetanide 1 MG/4 ML MDV IVPUSH SCH ×2 (07:54→15:55)
[2016-11-30] MEDS ORDERED: Potassium Chloride 40 MEQ in Premix Bag 1 BAG IV ONE (08:00)
[2016-11-30] MEDS: Sotalol 80 MG Tab PO SCH ×2 (08:41→20:10)
[2016-11-30] MEDS: Aspirin 81 MG Tab.EC PO SCH (08:43)
[2016-11-30] MEDS: Venlafaxine 75 MG Cap.ER PO SCH (08:43)
[2016-11-30] MEDS: Docusate Sodium 100 MG Cap PO SCH ×2 (08:43→20:10)
--- NOTE | 2016-11-30 08:45 | PCM.SURGPN ---
- General Info Date of Service: 11/30/16 Date of Surgery/Procedure: 11/25/16 POD#: 5 Post-Op Diagnosis: right lung mass Functional Status: Reports: Pain Controlled, Urinating - Review of Systems Systems Review Comment:: Patient was obtunded during exam so unable to complete a full review of systems. Nursing reports that Ruthie had 360 cc output from chest tube overnight. She has had a temperature over night, with temp this morning at 100.7. UA was done with positive nitrites and elevated urine WBC. Urine culture was sent. She was started on Zosyn, Zyvox and Levofloxacin. - Patient Data Vitals - Most Recent: Last Vital Signs Temp 38.6 C H 11/30/16 07:47 Pulse 123 H 11/30/16 07:47 Resp 15 11/30/16 07:47 BP 125/84 11/30/16 07:54 Pulse Ox 90 L 11/30/16 07:47 Weight - Most Recent: 100.4 kg I&O - Last 24 Hours: Intake & Output 11/29/16 11/30/16 11/30/16 22:59 06:59 14:59 Intake Total 2092 658 Output Total 5 895 75 Balance 67 -237 -75 Lab Results Last 24 Hrs: Laboratory Results - last 24 hr 11/29/16 11/29/16 11/30/16 Range/Units 21:20 22:30 04:30 WBC (4.5-11.0) K/uL RBC (3.30-5.50) M/uL Hgb (12.0-15.0) g/dL Hct (36.0-48.0) % MCV (80-98) fL MCH (27-31) pg MCHC (32-36) % Plt Count (150-400) K/uL Puncture Site ABG pH (7.350-7.450) ABG pCO2 (35.0-42.0) mmHg ABG pO2 (75.0-100.0) mmHg ABG HCO3 (22.0-26.0) mmol/L ABG Total CO2 (21.0-25.0) mmol/L ABG O2 Saturation (95.0-98.0) % ABG O2 Content (15.0-23.0) %vol ABG Base Excess mm/L ABG Hemoglobin (12.0-16.0) g/dL ABG Oxyhemoglobin % ABG Carboxyhemoglobin (0.0-1.6) % ABG Methemoglobin % O2 Delivery Device Oxygen Flow Rate L Sodium 138 L (140-148) mmol/L Potassium 3.7 4.1 (3.6-5.2) mmol/L Chloride 101 (100-108) mmol/L Carbon Dioxide 31 (21-32) mmol/L Anion Gap 10.1 (5.0-14.0) mmol/L BUN 13 (7-18) mg/dL Creatinine 1.2 H (0.6-1.0) mg/dL Est Cr Clr Drug Dosing 29.99 mL/min Estimated GFR (MDRD) 44 L (>60) Glucose 239 H (74-106) mg/dL Calcium 7.7 L (8.5-10.1) mg/dL Phosphorus 4.9 (2.5-4.9) mg/dL Magnesium 1.6 L (1.8-2.4) mg/dL Total Bilirubin 1.6 H D (0.2-1.0) mg/dL AST 72 H (15-37) U/L ALT 35 (12-78) U/L Alkaline Phosphatase 64 (46-116) U/L NT-Pro-B Natriuret Pep (5-125) pg/mL Total Protein 7.1 (6.4-8.2) g/dL Albumin 2.3 L (3.4-5.0) g/dL Globulin 4.8 H (2.3-3.5) g/dL Albumin/Globulin Ratio 0.5 L (1.2-2.2) Urine Color Yellow Urine Appearance Cloudy Urine pH 5.0 (4.5-8.0) Ur Specific Tiro 1.015 (1.008-1.030) Urine Protein Negative (NEGATIVE) mg/dL Urine Glucose (UA) Normal (NEGATIVE) mg/dL Urine Ketones Negative (NEGATIVE) mg/dL Urine Occult Blood Large (NEGATIVE) Urine Nitrite Positive H (NEGATIVE) Urine Bilirubin Negative (NEGATIVE) Urine Urobilinogen Normal (NORMAL) mg/dL Ur Leukocyte Esterase Moderate (NEGATIVE) Urine RBC 0-5 (0-5) Urine WBC 50-75 H (0-5) Ur Epithelial Cells Rare Amorphous Sediment Not seen Urine Bacteria Many Urine Mucus Rare Blood Type Gel Antibody Screen Crossmatch 11/30/16 11/30/16 11/30/16 Range/Units 04:35 04:35 04:35 WBC 11.7 H (4.5-11.0) K/uL RBC 3.67 (3.30-5.50) M/uL Hgb 10.5 L (12.0-15.0) g/dL Hct 33.6 L (36.0-48.0) % MCV 92 (80-98) fL MCH 29 (27-31) pg MCHC 31 L (32-36) % Plt Count 242 (150-400) K/uL Puncture Site Line ABG pH 7.258 L (7.350-7.450) ABG pCO2 67.6 H (35.0-42.0) mmHg ABG pO2 75.7 (75.0-100.0) mmHg ABG HCO3 29.2 H (22.0-26.0) mmol/L ABG Total CO2 27.8 H (21.0-25.0) mmol/L ABG O2 Saturation 94.0 L (95.0-98.0) % ABG O2 Content 13.8 L (15.0-23.0) %vol ABG Base Excess 1.3 mm/L ABG Hemoglobin 10.7 L (12.0-16.0) g/dL ABG Oxyhemoglobin 91.4 % ABG Carboxyhemoglobin 2.3 H (0.0-1.6) % ABG Methemoglobin 0.5 % O2 Delivery Device Bipap Oxygen Flow Rate L Sodium (140-148) mmol/L Potassium (3.6-5.2) mmol/L Chloride (100-108) mmol/L Carbon Dioxide (21-32) mmol/L Anion Gap (5.0-14.0) mmol/L BUN (7-18) mg/dL Creatinine (0.6-1.0) mg/dL Est Cr Clr Drug Dosing mL/min Estimated GFR (MDRD) (>60) Glucose (74-106) mg/dL Calcium (8.5-10.1) mg/dL Phosphorus (2.5-4.9) mg/dL Magnesium (1.8-2.4) mg/dL Total Bilirubin (0.2-1.0) mg/dL AST (15-37) U/L ALT (12-78) U/L Alkaline Phosphatase (46-116) U/L NT-Pro-B Natriuret Pep (5-125) pg/mL Total Protein (6.4-8.2) g/dL Albumin (3.4-5.0) g/dL Globulin (2.3-3.5) g/dL Albumin/Globulin Ratio (1.2-2.2) Urine Color Urine Appearance Urine pH (4.5-8.0) Ur Specific Tiro (1.008-1.030) Urine Protein (NEGATIVE) mg/dL Urine Glucose (UA) (NEGATIVE) mg/dL Urine Ketones (NEGATIVE) mg/dL Urine Occult Blood (NEGATIVE) Urine Nitrite (NEGATIVE) Urine Bilirubin (NEGATIVE) Urine Urobilinogen (NORMAL) mg/dL Ur Leukocyte Esterase (NEGATIVE) Urine RBC (0-5) Urine WBC (0-5) Ur Epithelial Cells Amorphous Sediment Urine Bacteria Urine Mucus Blood Type A POSITIVE Gel Antibody Screen Negative Crossmatch See Detail 11/30/16 Range/Units 07:35 WBC (4.5-11.0) K/uL RBC (3.30-5.50) M/uL Hgb (12.0-15.0) g/dL Hct (36.0-48.0) % MCV (80-98) fL MCH (27-31) pg MCHC (32-36) % Plt Count (150-400) K/uL Puncture Site ABG pH (7.350-7.450) ABG pCO2 (35.0-42.0) mmHg ABG pO2 (75.0-100.0) mmHg ABG HCO3 (22.0-26.0) mmol/L ABG Total CO2 (21.0-25.0) mmol/L ABG O2 Saturation (95.0-98.0) % ABG O2 Content (15.0-23.0) %vol ABG Base Excess mm/L ABG Hemoglobin (12.0-16.0) g/dL ABG Oxyhemoglobin % ABG Carboxyhemoglobin (0.0-1.6) % ABG Methemoglobin % O2 Delivery Device Oxygen Flow Rate L Sodium (140-148) mmol/L Potassium (3.6-5.2) mmol/L Chloride (100-108) mmol/L Carbon Dioxide (21-32) mmol/L Anion Gap (5.0-14.0) mmol/L BUN (7-18) mg/dL Creatinine (0.6-1.0) mg/dL Est Cr Clr Drug Dosing mL/min Estimated GFR (MDRD) (>60) Glucose (74-106) mg/dL Calcium (8.5-10.1) mg/dL Phosphorus (2.5-4.9) mg/dL Magnesium (1.8-2.4) mg/dL Total Bilirubin (0.2-1.0) mg/dL AST (15-37) U/L ALT (12-78) U/L Alkaline Phosphatase (46-116) U/L NT-Pro-B Natriuret Pep 6054 H (5-125) pg/mL Total Protein (6.4-8.2) g/dL Albumin (3.4-5.0) g/dL Globulin (2.3-3.5) g/dL Albumin/Globulin Ratio (1.2-2.2) Urine Color Urine Appearance Urine pH (4.5-8.0) Ur Specific Tiro (1.008-1.030) Urine Protein (NEGATIVE) mg/dL Urine Glucose (UA) (NEGATIVE) mg/dL Urine Ketones (NEGATIVE) mg/dL Urine Occult Blood (NEGATIVE) Urine Nitrite (NEGATIVE) Urine Bilirubin (NEGATIVE) Urine Urobilinogen (NORMAL) mg/dL Ur Leukocyte Esterase (NEGATIVE) Urine RBC (0-5) Urine WBC (0-5) Ur Epithelial Cells Amorphous Sediment Urine Bacteria Urine Mucus Blood Type Gel Antibody Screen Crossmatch David Results Last 24 Hrs: Microbiology 11/29/16 21:20 Gram Stain - Final Nasopharynx, Left Med Orders - Current: Current Medications Acetylcysteine (Mucomyst 20%) 200 mg INH BIDRT [facility] Last Admin: 11/30/16 07:02 Dose: 200 mg Albuterol/Ipratropium (Duoneb 3.0-0.5 Mg/3 Ml) 3 ml INH QIDRT [facility] Last Admin: 11/30/16 07:02 Dose: 3 ml Albuterol/Ipratropium (Duoneb 3.0-0.5 Mg/3 Ml) 3 ml INH ASDIRECTED PRN PRN Reason: Shortness of Breath Aspirin (Halfprin) 81 mg PO DAILY [facility] Last Admin: 11/29/16 09:55 Dose: Not Given Bumetanide (Bumex) 1 mg IVPUSH Q8H [facility] Last Admin: 11/30/16 07:54 Dose: 1 mg Dextrose (Glutose 15) 15 gm PO ASDIRECTED PRN PRN Reason: HYPOGLYCEMIA Dextrose/Water (Dextrose 50% In Water) 50 ml IVPUSH ASDIRECTED PRN PRN Reason: HYPOGLYCEMIA Diphenhydramine HCl (Benadryl) 25 mg IVPUSH Q6H PRN PRN Reason: ITCHING Last Admin: 11/27/16 17:52 Dose: 25 mg Docusate Sodium (Colace) 100 mg PO BID [facility] Last Admin: 11/29/16 21:40 Dose: Not Given Glucagon (Glucagen) 1 mg IM ASDIRECTED PRN PRN Reason: HYPOGLYCEMIA Haloperidol Lactate (Haldol) 1 mg IVPUSH Q1H PRN PRN Reason: Agitation Last Admin: 11/29/16 19:32 Dose: 1 mg Fentanyl 2,500 mcg/ Sodium (Chloride) 250 mls @ 0 mls/hr EPIDUR TITRATE [facility]; Titrate PRN Reason: Protocol Last Admin: 11/30/16 05:25 Dose: 8 mls/hr, 8 mls/hr Heparin Sodium (Porcine) 5,000 (units/ Sodium Chloride) 501 mls @ 1 mls/hr IV ASDIRECTED [facility] Last Admin: 11/28/16 14:32 Dose: 1 mls/hr Heparin Sodium (Porcine) 5,000 (units/ Sodium Chloride) 501 mls @ 1 mls/hr IV ASDIRECTED [facility] Last Admin: 11/28/16 14:32 Dose: 1 mls/hr Sodium Chloride (Normal Saline) 1,000 mls @ 25 mls/hr IV ASDIRECTED [facility] Last Admin: 11/30/16 05:00 Dose: 25 mls/hr Linezolid 600 mg/ Premix 300 mls @ 300 mls/hr IV Q12H [facility] Last Admin: 11/29/16 22:50 Dose: 300 mls/hr Acetaminophen 1,000 mg/ Premix 100 mls @ 400 mls/hr IV Q6H [facility] Stop: 11/30/16 20:46 Last Admin: 11/30/16 03:05 Dose: 400 mls/hr Piperacillin/Tazobactam/ (Dextrose 3.375 gm/ Premix) 50 mls @ 100 mls/hr IV Q6H [facility] Last Admin: 11/30/16 06:12 Dose: Not Given Levofloxacin/Dextrose 750 mg/ (Premix) 150 mls @ 150 mls/hr IV Q48H [facility] Potassium Chloride 40 meq/ (Premix) 100 mls @ 25 mls/hr IV ONETIME ONE Stop: 11/30/16 11:59 Potassium Chloride 20 meq/ (Premix) 100 mls @ 50 mls/hr IV ONETIME ONE Stop: 11/30/16 13:59 Naloxone HCl 0.4 mg/ Dextrose/ (Sodium Chloride) 1,001 mls @ 25 mls/hr IV ASDIRECTED [facility] Insulin Aspart (Novolog) 0 unit SUBCUT Q6H PRN; Protocol PRN Reason: MEDIUM CORRECTIONAL DOSE Last Admin: 11/30/16 07:52 Dose: 3 units Levothyroxine Sodium 100 mcg/ (Levothyroxine Sodium 25 mcg) 125 mcg PO ACBREAKFAST [facility] Last Admin: 11/30/16 07:32 Dose: Not Given Lorazepam (Ativan) 0.5 mg IVPUSH Q2H PRN PRN Reason: Anxiety Last Admin: 11/29/16 19:33 Dose: 0.5 mg Naloxone HCl (Narcan) 0.1 mg IVPUSH Q5M PRN PRN Reason: RESP RATE LESS THAN 6/MINUTE Ondansetron HCl (Zofran) 4 mg IV Q4H PRN PRN Reason: N/V Last Admin: 11/26/16 17:53 Dose: 4 mg Pantoprazole Sodium (Protonix Iv) 40 mg IV Q24H [facility] Last Admin: 11/29/16 15:29 Dose: 40 mg Advair 100/50 (Inhaler (Ptom)) 0 each INH BIDRT [facility] Last Admin: 11/30/16 07:02 Dose: Not Given Senna/Docusate Sodium (Senna Plus) 2 tab PO DAILY [facility] Last Admin: 11/29/16 09:55 Dose: Not Given Sotalol HCl (Betapace) 80 mg PO BID [facility] Last Admin: 11/29/16 21:40 Dose: Not Given Spironolactone (Aldactone) 25 mg PO BEDTIME [facility] Last Admin: 11/29/16 21:40 Dose: Not Given Venlafaxine HCl (Effexor Xr) 75 mg PO DAILY [facility] Last Admin: 11/29/16 09:55 Dose: Not Given Discontinued Medications Albuterol (Proventil Neb Soln) Confirm Administered Dose 2.5 mg .ROUTE .STK-MED ONE Stop: 11/25/16 07:56 Last Admin: 11/25/16 08:03 Dose: 2.5 mg Albuterol/Ipratropium (Duoneb 3.0-0.5 Mg/3 Ml) 3 ml NEB ONETIME ONE Stop: 11/25/16 10:01 Last Admin: 11/25/16 09:00 Dose: 3 ml Amitriptyline HCl (Elavil) 50 mg PO BEDTIME [facility] Last Admin: 11/26/16 20:54 Dose: 50 mg Bumetanide (Bumex) 1 mg IVPUSH ONETIME ONE Stop: 11/26/16 17:21 Last Admin: 11/26/16 17:49 Dose: 1 mg Bumetanide (Bumex) 1 mg IVPUSH Q12H [facility] Stop: 11/27/16 20:01 Last Admin: 11/27/16 08:05 Dose: 1 mg Bumetanide (Bumex) 2 mg IVPUSH ONETIME ONE Stop: 11/27/16 15:01 Last Admin: 11/27/16 14:58 Dose: 2 mg Bumetanide (Bumex) 1 mg IV Q12H [facility] Stop: 11/28/16 20:01 Last Admin: 11/28/16 19:56 Dose: 1 mg Bumetanide (Bumex) 1 mg IV Q8H [facility] Stop: 11/30/16 00:01 Last Admin: 11/30/16 00:09 Dose: 1 mg Bupivacaine HCl/Epinephrine Bitart (Marcaine 0.5%/Epinephrine 1:200,000) Confirm Administered Dose 50 ml .ROUTE .STK-MED ONE Stop: 11/25/16 12:04 Bupivacaine HCl/Epinephrine Bitart (Marcaine 0.5%/Epinephrine 1:200,000) 18 ml INJECT .STK-MED ONE Stop: 11/25/16 12:01 Last Admin: 11/25/16 12:00 Dose: 18 ml Carvedilol (Coreg) 6.25 mg PO BID [facility] Last Admin: 11/26/16 15:15 Dose: 6.25 mg Dexamethasone (Dexamethasone) Confirm Administered Dose 4 mg .ROUTE .[facility]-MED ONE Stop: 11/25/16 07:45 Enalapril Maleate (Vasotec) 2.5 mg PO BEDTIME [facility] Last Admin: 11/26/16 20:54 Dose: 2.5 mg Fentanyl Citrate (Fentanyl) Confirm Administered Dose 500 mcg .ROUTE .[facility] ONE Stop: 11/25/16 07:45 Gabapentin (Neurontin) 100 mg PO ONETIME ONE Stop: 11/25/16 07:46 Last Admin: 11/25/16 08:33 Dose: 100 mg Gabapentin (Neurontin) 100 mg PO BEDTIME [facility] Last Admin: 11/26/16 20:54 Dose: 100 mg Glycopyrrolate (Robinul) Confirm Administered Dose 1 mg .ROUTE .[facility] ONE Stop: 11/25/16 07:45 Haloperidol Lactate (Haldol) 2 mg IVPUSH Q1H PRN PRN Reason: Agitation Heparin Sodium (Porcine) (Heparin Sodium) Confirm Administered Dose 5,000 units .ROUTE .ST-MED ONE Stop: 11/25/16 07:46 Heparin Sodium (Porcine) (Heparin Lock Flush 100 Units/Ml) Confirm Administered Dose 1,000 units .ROUTE .[facility] ONE Stop: 11/25/16 08:51 Dextrose/Lactated Ringer's (Dextrose 5%-Lactated Ringers) 1,000 mls @ 100 mls/ hr IV ASDIRECTED [facility] Levofloxacin/Dextrose 500 mg/ (Premix) 100 mls @ 100 mls/hr IV ONETIME ONE Stop: 11/25/16 10:59 Last Admin: 11/25/16 10:00 Dose: 100 mls/hr Lidocaine HCl (Xylocaine-Mpf 1%) Confirm Administered Dose 2 mls @ as directed .ROUTE .[facility] ONE Stop: 11/25/16 07:46 Dextrose/Sodium Chloride (Dextrose 5%-Normal Saline) 1,000 mls @ 100 mls/hr IV ASDIRECTED [facility] Lactated Ringer's (Ringers, Lactated) Confirm Administered Dose 1,000 mls @ as directed .ROUTE .[facility] ONE Stop: 11/25/16 09:24 Sodium Chloride (Normal Saline) Confirm Administered Dose 10 mls @ as directed .ROUTE .STK-MED ONE Stop: 11/25/16 12:04 Naloxone HCl 0.4 mg/ Dextrose/ (Sodium Chloride) 1,001 mls @ 100 mls/hr IV ASDIRECTED [facility] Last Admin: 11/29/16 12:18 Dose: 100 mls/hr Sodium Chloride (Normal Saline) 1,000 mls @ 75 mls/hr IV ASDIRECTED [facility] Last Admin: 11/26/16 16:32 Dose: 75 mls/hr Levofloxacin/Dextrose 500 mg/ (Premix) 100 mls @ 100 mls/hr IV Q24H [facility] Last Admin: 11/29/16 10:00 Dose: 100 mls/hr Lactated Ringer's (Ringers, Lactated) 500 mls @ 500 mls/hr IV .BOLUS [facility] Stop: 11/25/16 18:15 Last Admin: 11/25/16 17:15 Dose: 500 mls/hr Magnesium Sulfate 2 gm/ Premix 50 mls @ 25 mls/hr IV Q6H [facility] Stop: 11/28/16 05:59 Last Admin: 11/28/16 04:03 Dose: 25 mls/hr Lactated Ringer's (Ringers, Lactated) 500 mls @ 500 mls/hr IV .BOLUS [facility] Stop: 11/26/16 10:01 Last Admin: 11/26/16 09:15 Dose: 500 mls/hr Lactated Ringer's (Ringers, Lactated) 500 mls @ 500 mls/hr IV .BOLUS [facility] Last Admin: 11/26/16 13:36 Dose: 500 mls/hr Dextrose/Sodium Chloride (Dextrose 5%-Normal Saline) 1,000 mls @ 75 mls/hr IV ASDIRECTED [facility] Last Admin: 11/28/16 08:46 Dose: 75 mls/hr Sodium Chloride (Normal Saline) 1,000 mls @ 25 mls/hr IV ASDIRECTED [facility] Last Admin: 11/28/16 08:45 Dose: 25 mls/hr Acetaminophen 1,000 mg/ Premix 100 mls @ 400 mls/hr IV Q6H [facility] Stop: 11/29/16 10:01 Last Admin: 11/29/16 10:00 Dose: 400 mls/hr Potassium Phosphate 20 mmole/ (Sodium Chloride) 156.6667 mls @ 52 mls/hr IV Q3H [facility] Stop: 11/29/16 16:59 Last Admin: 11/29/16 14:36 Dose: 52 mls/hr Piperacillin Sod/Tazobactam (Sod 3.375 gm/ Sodium Chloride) 50 mls @ 100 mls/ hr IV Q6H [facility] Last Admin: 11/30/16 04:59 Dose: 100 mls/hr Piperacillin Sod/Tazobactam (Sod 2.25 gm/ Sodium Chloride) 50 mls @ 100 mls/hr IV Q6H [facility] Sodium Chloride (Normal Saline) Confirm Administered Dose 50 mls @ as directed .ROUTE .STK-MED ONE Stop: 11/29/16 22:16 Last Admin: 11/29/16 22:32 Dose: Not Given Sodium Chloride (Normal Saline) Confirm Administered Dose 50 mls @ as directed .ROUTE .STK-MED ONE Stop: 11/30/16 03:28 Last Admin: 11/30/16 05:21 Dose: Not Given Insulin Aspart (Novolog) 3 unit SUBCUT ONETIME [facility] Last Admin: 11/25/16 12:48 Dose: 3 units Insulin Detemir (Levemir) 30 unit SUBCUT ONETIME ONE Stop: 11/25/16 21:01 Last Admin: 11/25/16 21:00 Dose: 30 units Lidocaine HCl (Xylocaine 2% Viscous) Confirm Administered Dose 15 ml .ROUTE .STK -MED ONE Stop: 11/25/16 09:50 Lorazepam (Ativan) 0.5 - 1 mg IVPUSH Q4H PRN PRN Reason: Anxiety Last Admin: 11/27/16 15:30 Dose: 1 mg Lorazepam (Ativan) 1 - 2 mg IVPUSH Q1H PRN PRN Reason: Anxiety Last Admin: 11/29/16 10:10 Dose: 2 mg Meropenem (Merrem) 500 mg IRR .STK-MED ONE Stop: 11/25/16 11:41 Last Admin: 11/25/16 11:40 Dose: 500 mg Meropenem (Merrem) Confirm Administered Dose 500 mg .ROUTE .STK-MED ONE Stop: 11/25/16 12:04 Neostigmine Methylsulfate (Neostigmine) Confirm Administered Dose 5 mg .ROUTE .STK-MED ONE Stop: 11/25/16 07:45 Verify Scop Patch 0 each TOP DAILY [facility] Last Admin: 11/27/16 08:19 Dose: Not Given Ondansetron HCl (Zofran) Confirm Administered Dose 4 mg .ROUTE .STK-MED ONE Stop: 11/25/16 07:45 Propofol (Diprivan 20 Ml) Confirm Administered Dose 200 mg .ROUTE .STK-MED ONE Stop: 11/25/16 07:45 Rocuronium [place] (Zemuron) Confirm Administered Dose 50 mg .ROUTE .STK-MED ONE Stop: 11/25/16 07:45 Scopolamine (Transderm-Scop) 1.5 mg TOP Q72H [facility] Stop: 11/28/16 03:00 Last Admin: 11/25/16 09:00 Dose: 1.5 mg Succinylcholine Chloride (Quelicin) Confirm Administered Dose 200 mg .ROUTE .STK -MED ONE Stop: 11/25/16 07:45 - Exam Wound/Incisions: Healing Well Quality Assessment: Central Line/PICC, Urine Catheter, DVT Prophylaxis General: Obtunded HEENT: Other (eyes closed during exam ) Neck: Supple Lungs: Rhonchi GI/Abdominal Exam: Soft, Tender Extremities: Normal Inspection Skin: Warm, Dry Neurological: No New Focal Deficit Psy/Mental Status: Other (obtunded ) - Problem List & Annotations (1) Cancer of lung SNOMED Code(s): 358511275 Code(s): C34.90 - MALIGNANT NEOPLASM OF UNSP PART OF UNSP BRONCHUS OR LUNG Status: Chronic Current Visit: No Qualifiers: Laterality: right Lung location: unspecified part of lung Qualified Code( s): C34.91 - Malignant neoplasm of unspecified part of right bronchus or lung - Problem List Review Problem List Initiated/Reviewed/Updated: Yes - My Orders Last 24 Hours: Active Orders 24 hr Category Date Time Status Chest 1V Frontal [CR] DAILY Exams 11/30/16 04:00 Taken ABG [BLOOD GAS ARTERIAL] [BG] Routine Lab 12/01/16 04:00 Ordered CBC W/O DIFF,HEMOGRAM [HEME] Timed Lab 12/01/16 04:00 Ordered COMPREHENSIVE METABOLIC PN,CMP [CHEM] Timed Lab 12/01/16 04:00 Ordered CULTURE BLOOD [BC] Urgent Lab 11/29/16 20:50 Received CULTURE BLOOD [BC] Urgent Lab 11/29/16 21:00 Received CULTURE RESPIRATORY + SMEAR [RM] Routine Lab 11/29/16 21:20 Results CULTURE URINE [RM] Routine Lab 11/30/16 06:07 Received MAGNESIUM [CHEM] Timed Lab 12/01/16 04:00 Ordered PHOSPHORUS [CHEM] Timed Lab 12/01/16 04:00 Ordered PRO B-TYPE NATRIUR PEPT,BNPPRO [CHEM] Timed Lab 12/01/16 04:00 Ordered RED BLOOD CELLS LP [BBK] Routine Lab 11/30/16 04:35 Results TYPE AND SCREEN [BBK] Routine Lab 11/30/16 04:35 Results Acetaminophen [Ofirmev] 1,000 mg Med 11/29/16 20:45 Active Premix Bag 1 bag IV Q6H Bumetanide [Bumex] Med 11/30/16 08:00 Active 1 mg IVPUSH Q8H Haloperidol Lactate [Haldol] Med 11/29/16 10:15 Active 1 mg IVPUSH Q1H PRN LORazepam [Ativan] Med 11/29/16 10:15 Active 0.5 mg IVPUSH Q2H PRN Levofloxacin/Dextrose 5%-Water [Levaquin in D5W 750 MG/ Med 11/30/16 14:00 Active 150 ML] 750 mg Premix Bag 1 bag IV Q48H Linezolid [Zyvox] 600 mg Med 11/29/16 21:30 Active Premix Bag 1 bag IV Q12H Naloxone [Narcan] 0.4 mg Med 11/30/16 14:00 Active Dextrose 5%-0.9% NaCl [Dextrose 5%-Normal Saline] 1,000 ml IV ASDIRECTED Piperacillin/Tazobactam/Dext [Zosyn in Dextrose Iso- Med 11/29/16 23:00 Active Osmotic 3.375 GM] 3.375 gm Premix Bag 1 bag IV Q6H Potassium Chloride [KCL 20 MEQ in Water 100 ML] 20 meq Med 11/30/16 12:00 Active Premix Bag 1 bag IV ONETIME Potassium Chloride [KCL 40 MEQ in Water 100 ML] 40 meq Med 11/30/16 08:00 Active Premix Bag 1 bag IV ONETIME Sodium Chloride 0.9% [Normal Saline] 1,000 ml Med 11/29/16 10:30 Active IV ASDIRECTED Blood Culture x2 Reflex Set [OM.PC] Urgent Oth 11/29/16 20:32 Ordered Medication Orders Acetylcysteine (Mucomyst 20%) 200 mg INH BIDRT [facility] Last Admin: 11/30/16 07:02 Dose: 200 mg Admin: 11/29/16 21:36 Dose: 200 mg Admin: 11/29/16 07:17 Dose: 200 mg Admin: 11/28/16 20:43 Dose: 200 mg Admin: 11/28/16 07:20 Dose: 200 mg Admin: 11/27/16 21:34 Dose: 200 mg Admin: 11/27/16 08:05 Dose: 200 mg Albuterol/Ipratropium (Duoneb 3.0-0.5 Mg/3 Ml) 3 ml INH QIDRT [facility] Last Admin: 11/30/16 07:02 Dose: 3 ml Admin: 11/29/16 21:36 Dose: 3 ml Admin: 11/29/16 14:42 Dose: 3 ml Admin: 11/29/16 10:54 Dose: 3 ml Admin: 11/29/16 07:17 Dose: 3 ml Admin: 11/28/16 20:35 Dose: 3 ml Admin: 11/28/16 14:35 Dose: 3 ml Admin: 11/28/16 11:01 Dose: 3 ml Admin: 11/28/16 07:20 Dose: 3 ml Admin: 11/27/16 21:34 Dose: 3 ml Admin: 11/27/16 14:43 Dose: 3 ml Admin: 11/27/16 10:52 Dose: 3 ml Admin: 11/27/16 07:06 Dose: 3 ml Admin: 11/26/16 20:52 Dose: 3 ml Admin: 11/26/16 14:41 Dose: 3 ml Admin: 11/26/16 10:53 Dose: 3 ml Admin: 11/26/16 07:15 Dose: 3 ml Admin: 11/25/16 21:04 Dose: Not Given Admin: 11/25/16 15:34 Dose: 3 ml Albuterol/Ipratropium (Duoneb 3.0-0.5 Mg/3 Ml) 3 ml INH ASDIRECTED PRN PRN Reason: Shortness of Breath Aspirin (Halfprin) 81 mg PO DAILY [facility] Last Admin: 11/29/16 09:55 Dose: Not Given Admin: 11/28/16 10:08 Dose: 81 mg Admin: 11/27/16 08:04 Dose: 81 mg Admin: 11/26/16 09:04 Dose: 81 mg Bumetanide (Bumex) 1 mg IVPUSH Q8H [facility] Last Admin: 11/30/16 07:54 Dose: 1 mg Dextrose (Glutose 15) 15 gm PO ASDIRECTED PRN PRN Reason: HYPOGLYCEMIA Dextrose/Water (Dextrose 50% In Water) 50 ml IVPUSH ASDIRECTED PRN PRN Reason: HYPOGLYCEMIA Diphenhydramine HCl (Benadryl) 25 mg IVPUSH Q6H PRN PRN Reason: ITCHING Last Admin: 11/27/16 17:52 Dose: 25 mg Docusate Sodium (Colace) 100 mg PO BID [facility] Last Admin: 11/29/16 21:40 Dose: Not Given Admin: 11/29/16 09:55 Dose: Not Given Admin: 11/28/16 21:07 Dose: 100 mg Admin: 11/28/16 10:08 Dose: 100 mg Admin: 11/27/16 21:35 Dose: Not Given Admin: 11/27/16 08:03 Dose: 100 mg Admin: 11/26/16 20:53 Dose: 100 mg Admin: 11/26/16 09:04 Dose: 100 mg Glucagon (Glucagen) 1 mg IM ASDIRECTED PRN PRN Reason: HYPOGLYCEMIA Haloperidol Lactate (Haldol) 1 mg IVPUSH Q1H PRN PRN Reason: Agitation Last Admin: 11/29/16 19:32 Dose: 1 mg Admin: 11/29/16 15:29 Dose: 1 mg Fentanyl 2,500 mcg/ Sodium (Chloride) 250 mls @ 0 mls/hr EPIDUR TITRATE [facility]; Titrate PRN Reason: Protocol Last Admin: 11/30/16 05:25 Dose: 8 mls/hr, 8 mls/hr Titration: 11/30/16 05:25 Dose: 8 mls/hr, 8 mls/hr Titration: 11/30/16 05:24 Dose: 8 mls/hr, 8 mls/hr Admin: 11/28/16 22:38 Dose: 8 mls/hr, 8 mls/hr Titration: 11/28/16 22:16 Dose: 8 mls/hr, 8 mls/hr Admin: 11/27/16 15:01 Dose: 8 mls/hr, 8 mls/hr Titration: 11/27/16 15:01 Dose: 8 mls/hr, 8 mls/hr Admin: 11/26/16 15:26 Dose: 8 mls/hr, 8 mls/hr Titration: 11/26/16 15:26 Dose: 8 mls/hr, 8 mls/hr Admin: 11/25/16 15:07 Dose: 8 mls/hr, 8 mls/hr Heparin Sodium (Porcine) 5,000 (units/ Sodium Chloride) 501 mls @ 1 mls/hr IV ASDIRECTED [facility] Last Admin: 11/28/16 14:32 Dose: 1 mls/hr Infusion: 11/28/16 14:32 Dose: 1 mls/hr Admin: 11/25/16 16:12 Dose: 1 mls/hr Heparin Sodium (Porcine) 5,000 (units/ Sodium Chloride) 501 mls @ 1 mls/hr IV ASDIRECTED [facility] Last Admin: 11/28/16 14:32 Dose: 1 mls/hr Sodium Chloride (Normal Saline) 1,000 mls @ 25 mls/hr IV ASDIRECTED [facility] Last Admin: 11/30/16 05:00 Dose: 25 mls/hr Linezolid 600 mg/ Premix 300 mls @ 300 mls/hr IV Q12H [facility] Last Admin: 11/29/16 22:50 Dose: 300 mls/hr Acetaminophen 1,000 mg/ Premix 100 mls @ 400 mls/hr IV Q6H [facility] Stop: 11/30/16 20:46 Last Admin: 11/30/16 03:05 Dose: 400 mls/hr Infusion: 11/29/16 21:46 Dose: 400 mls/hr Admin: 11/29/16 21:31 Dose: 400 mls/hr Piperacillin/Tazobactam/ (Dextrose 3.375 gm/ Premix) 50 mls @ 100 mls/hr IV Q6H [facility] Last Admin: 11/30/16 06:12 Dose: Not Given Admin: 11/29/16 22:32 Dose: 100 mls/hr Levofloxacin/Dextrose 750 mg/ (Premix) 150 mls @ 150 mls/hr IV Q48H [facility] Potassium Chloride 40 meq/ (Premix) 100 mls @ 25 mls/hr IV ONETIME ONE Stop: 11/30/16 11:59 Potassium Chloride 20 meq/ (Premix) 100 mls @ 50 mls/hr IV ONETIME ONE Stop: 11/30/16 13:59 Naloxone HCl 0.4 mg/ Dextrose/ (Sodium Chloride) 1,001 mls @ 25 mls/hr IV ASDIRECTED [facility] Insulin Aspart (Novolog) 0 unit SUBCUT Q6H PRN; Protocol PRN Reason: MEDIUM CORRECTIONAL DOSE Last Admin: 11/30/16 07:52 Dose: 3 units Admin: 11/29/16 22:49 Dose: 2 units Admin: 11/29/16 17:43 Dose: 3 units Admin: 11/29/16 13:08 Dose: 3 units Admin: 11/29/16 08:14 Dose: 2 units Admin: 11/28/16 20:47 Dose: 2 units Admin: 11/28/16 17:16 Dose: 2 units Admin: 11/28/16 11:09 Dose: 2 units Admin: 11/28/16 08:01 Dose: 2 units Admin: 11/27/16 21:49 Dose: 3 units Admin: 11/27/16 17:25 Dose: 3 units Admin: 11/27/16 12:19 Dose: 2 units Admin: 11/27/16 08:15 Dose: 3 units Admin: 11/26/16 20:49 Dose: 2 units Admin: 11/26/16 17:26 Dose: 1 units Admin: 11/26/16 12:11 Dose: 2 units Admin: 11/25/16 21:02 Dose: 5 units Admin: 11/25/16 17:15 Dose: 3 units Levothyroxine Sodium 100 mcg/ (Levothyroxine Sodium 25 mcg) 125 mcg PO ACBREAKFAST [facility] Last Admin: 11/30/16 07:32 Dose: Admin: 11/29/16 08:09 Dose: Admin: 11/28/16 10:09 Dose: 125 mcg Admin: 11/27/16 08:05 Dose: 125 mcg Admin: 11/26/16 07:40 Dose: 125 mcg Lorazepam (Ativan) 0.5 mg IVPUSH Q2H PRN PRN Reason: Anxiety Last Admin: 11/29/16 19:33 Dose: 0.5 mg Admin: 11/29/16 17:01 Dose: 0.5 mg Admin: 11/29/16 14:34 Dose: 0.5 mg Naloxone HCl (Narcan) 0.1 mg IVPUSH Q5M PRN PRN Reason: RESP RATE LESS THAN 6/MINUTE Ondansetron HCl (Zofran) 4 mg IV Q4H PRN PRN Reason: N/V Last Admin: 11/26/16 17:53 Dose: 4 mg Admin: 11/25/16 20:25 Dose: 4 mg Pantoprazole Sodium (Protonix Iv) 40 mg IV Q24H [facility] Last Admin: 11/29/16 15:29 Dose: 40 mg Admin: 11/28/16 16:07 Dose: 40 mg Admin: 11/27/16 16:12 Dose: 40 mg Admin: 11/26/16 15:17 Dose: 40 mg Admin: 11/25/16 15:34 Dose: 40 mg Advair 100/50 (Inhaler (Ptom)) 0 each INH BIDRT [facility] Last Admin: 11/30/16 07:02 Dose: Admin: 11/29/16 21:40 Dose: Not Given Admin: 11/29/16 07:19 Dose: 1 each Admin: 11/28/16 20:44 Dose: 1 each Admin: 11/28/16 10:43 Dose: Not Given Admin: 11/27/16 21:03 Dose: Not Given Admin: 11/27/16 07:06 Dose: 1 each Admin: 11/26/16 20:54 Dose: 1 each Admin: 11/26/16 07:15 Dose: 1 each Admin: 11/25/16 21:07 Dose: 1 each Senna/Docusate Sodium (Senna Plus) 2 tab PO DAILY [facility] Last Admin: 11/29/16 09:55 Dose: Not Given Admin: 11/28/16 10:08 Dose: 2 tab Admin: 11/27/16 08:03 Dose: 2 tab Admin: 11/26/16 09:04 Dose: 2 tab Sotalol HCl (Betapace) 80 mg PO BID [facility] Last Admin: 11/29/16 21:40 Dose: Not Given Admin: 11/29/16 09:55 Dose: Not Given Admin: 11/28/16 20:36 Dose: 80 mg Admin: 11/28/16 10:06 Dose: 80 mg Admin: 11/27/16 21:03 Dose: Not Given Admin: 11/27/16 08:04 Dose: 80 mg Admin: 11/26/16 20:53 Dose: 80 mg Admin: 11/26/16 15:14 Dose: 80 mg Admin: 11/26/16 09:07 Dose: Admin: 11/25/16 21:05 Dose: 80 mg Spironolactone (Aldactone) 25 mg PO BEDTIME [facility] Last Admin: 11/29/16 21:40 Dose: Not Given Admin: 11/28/16 20:36 Dose: 25 mg Admin: 11/27/16 21:02 Dose: Not Given Admin: 11/26/16 20:53 Dose: 25 mg Admin: 11/25/16 21:04 Dose: 25 mg Venlafaxine HCl (Effexor Xr) 75 mg PO DAILY [facility] Last Admin: 11/29/16 09:55 Dose: Not Given Admin: 11/28/16 10:08 Dose: 75 mg Admin: 11/27/16 08:04 Dose: 75 mg Admin: 11/26/16 09:04 Dose: 75 mg - Assessment Assessment (Free Text/Narrative):: 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 Status post central venous catheter insertion. - Plan Plan (Free Text/Narrative):: 1. Bumex 1 mg IVP q 8 hours. 2. Minimize Ativan use. 3. Minimize IV fluids - central line. 4. KCL 60 mmol IVPB - minimize IVF - via central line. 5. ABGs, CMP, Mg, Phos, BNP, CBC in am. FABI Fish-Student
--- NOTE | 2016-11-30 09:12 | CR ---
Chest 1V Frontal HISTORY: chest tube COMPARISON: 11/29/2016, 11/28/2016 FINDINGS: Left-sided pacemaker/AICD and lead wires are stable. Right thoracotomy changes are redemons trated. 2 right chest tubes remain in place. Probable small right apical pneumothorax is unchanged. D ensity overlying the right chest is stable and could represent atelectasis, infiltrates, or fluid. Le ft lung remains clear. Heart size is stable. 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 IMPRESSION: Stable postoperative chest. No significant interval change since yesterday's exam.
[2016-11-30] MEDS: Linezolid 600 MG in Premix Bag 1 BAG IV SCH ×2 (09:24→21:32)
--- NOTE | 2016-11-30 09:24 | PCM.CONSN ---
- General Info Date of Service: 11/30/16 Functional Status: Reports: Pain Controlled - Review of Systems General: Reports: Fever, Weakness Systems Review Comment:: This patient experienced a significant temperature elevation last night, cultures were obtained and she is been started on broad-spectrum IV antibiotic therapy with Zyvox, levofloxacin, and Zosyn. Level of consciousness has been decreased, she does appear to be comfortable. Heart rate elevated since temperature spike last night, thick dark colored sputum has been suctioned from the lungs. She has required increased level of oxygen support with BiPAP. - Patient Data Vitals - Most Recent: Last Vital Signs Temp 101.5 F H 11/30/16 07:47 Pulse 127 H 11/30/16 08:41 Resp 15 11/30/16 07:47 BP 131/87 11/30/16 08:41 Pulse Ox 90 L 11/30/16 07:47 Weight - Most Recent: 221 lb 5.506 oz I&O - Last 24 Hours: Intake & Output 11/29/16 11/30/16 11/30/16 22:59 06:59 14:59 Intake Total 2092 658 Output Total 2020 895 75 Balance 67 -237 -75 Lab Results Last 24 Hours: Laboratory Results - last 24 hr 11/29/16 11/29/16 11/30/16 Range/Units 21:20 22:30 04:30 WBC (4.5-11.0) K/uL RBC (3.30-5.50) M/uL Hgb (12.0-15.0) g/dL Hct (36.0-48.0) % MCV (80-98) fL MCH (27-31) pg MCHC (32-36) % Plt Count (150-400) K/uL Puncture Site ABG pH (7.350-7.450) ABG pCO2 (35.0-42.0) mmHg ABG pO2 (75.0-100.0) mmHg ABG HCO3 (22.0-26.0) mmol/L ABG Total CO2 (21.0-25.0) mmol/L ABG O2 Saturation (95.0-98.0) % ABG O2 Content (15.0-23.0) %vol ABG Base Excess mm/L ABG Hemoglobin (12.0-16.0) g/dL ABG Oxyhemoglobin % ABG Carboxyhemoglobin (0.0-1.6) % ABG Methemoglobin % O2 Delivery Device Oxygen Flow Rate L Sodium 138 L (140-148) mmol/L Potassium 3.7 4.1 (3.6-5.2) mmol/L Chloride 101 (100-108) mmol/L Carbon Dioxide 31 (21-32) mmol/L Anion Gap 10.1 (5.0-14.0) mmol/L BUN 13 (7-18) mg/dL Creatinine 1.2 H (0.6-1.0) mg/dL Est Cr Clr Drug Dosing 29.99 mL/min Estimated GFR (MDRD) 44 L (>60) Glucose 239 H (74-106) mg/dL Calcium 7.7 L (8.5-10.1) mg/dL Phosphorus 4.9 (2.5-4.9) mg/dL Magnesium 1.6 L (1.8-2.4) mg/dL Total Bilirubin 1.6 H D (0.2-1.0) mg/dL AST 72 H (15-37) U/L ALT 35 (12-78) U/L Alkaline Phosphatase 64 (46-116) U/L NT-Pro-B Natriuret Pep (5-125) pg/mL Total Protein 7.1 (6.4-8.2) g/dL Albumin 2.3 L (3.4-5.0) g/dL Globulin 4.8 H (2.3-3.5) g/dL Albumin/Globulin Ratio 0.5 L (1.2-2.2) Urine Color Yellow Urine Appearance Cloudy Urine pH 5.0 (4.5-8.0) Ur Specific [place] 1.015 (1.008-1.030) Urine Protein Negative (NEGATIVE) mg/dL Urine Glucose (UA) Normal (NEGATIVE) mg/dL Urine Ketones Negative (NEGATIVE) mg/dL Urine Occult Blood Large (NEGATIVE) Urine Nitrite Positive H (NEGATIVE) Urine Bilirubin Negative (NEGATIVE) Urine Urobilinogen Normal (NORMAL) mg/dL Ur Leukocyte Esterase Moderate (NEGATIVE) Urine RBC 0-5 (0-5) Urine WBC 50-75 H (0-5) Ur Epithelial Cells Rare Amorphous Sediment Not seen Urine Bacteria Many Urine Mucus Rare Blood Type Gel Antibody Screen Crossmatch 1011/30/16 11/30/16 Range/Units 04:35 04:35 04:35 WBC 11.7 H (4.5-11.0) K/uL RBC 3.67 (3.30-5.50) M/uL Hgb 10.5 L (12.0-15.0) g/dL Hct 33.6 L (36.0-48.0) % MCV 92 (80-98) fL MCH 29 (27-31) pg MCHC 31 L (32-36) % Plt Count 242 (150-400) K/uL Puncture Site Line ABG pH 7.258 L (7.350-7.450) ABG pCO2 67.6 H (35.0-42.0) mmHg ABG pO2 75.7 (75.0-100.0) mmHg ABG HCO3 29.2 H (22.0-26.0) mmol/L ABG Total CO2 27.8 H (21.0-25.0) mmol/L ABG O2 Saturation 94.0 L (95.0-98.0) % ABG O2 Content 13.8 L (15.0-23.0) %vol ABG Base Excess 1.3 mm/L ABG Hemoglobin 10.7 L (12.0-16.0) g/dL ABG Oxyhemoglobin 91.4 % ABG Carboxyhemoglobin 2.3 H (0.0-1.6) % ABG Methemoglobin 0.5 % O2 Delivery Device Bipap Oxygen Flow Rate L Sodium (140-148) mmol/L Potassium (3.6-5.2) mmol/L Chloride (100-108) mmol/L Carbon Dioxide (21-32) mmol/L Anion Gap (5.0-14.0) mmol/L BUN (7-18) mg/dL Creatinine (0.6-1.0) mg/dL Est Cr Clr Drug Dosing mL/min Estimated GFR (MDRD) (>60) Glucose (74-106) mg/dL Calcium (8.5-10.1) mg/dL Phosphorus (2.5-4.9) mg/dL Magnesium (1.8-2.4) mg/dL Total Bilirubin (0.2-1.0) mg/dL AST (15-37) U/L ALT (12-78) U/L Alkaline Phosphatase (46-116) U/L NT-Pro-B Natriuret Pep (5-125) pg/mL Total Protein (6.4-8.2) g/dL Albumin (3.4-5.0) g/dL Globulin (2.3-3.5) g/dL Albumin/Globulin Ratio (1.2-2.2) Urine Color Urine Appearance Urine pH (4.5-8.0) Ur Specific [place] (1.008-1.030) Urine Protein (NEGATIVE) mg/dL Urine Glucose (UA) (NEGATIVE) mg/dL Urine Ketones (NEGATIVE) mg/dL Urine Occult Blood (NEGATIVE) Urine Nitrite (NEGATIVE) Urine Bilirubin (NEGATIVE) Urine Urobilinogen (NORMAL) mg/dL Ur Leukocyte Esterase (NEGATIVE) Urine RBC (0-5) Urine WBC (0-5) Ur Epithelial Cells Amorphous Sediment Urine Bacteria Urine Mucus Blood Type A POSITIVE Gel Antibody Screen Negative Crossmatch See Detail 11/30/16 Range/Units 07:35 WBC (4.5-11.0) K/uL RBC (3.30-5.50) M/uL Hgb (12.0-15.0) g/dL Hct (36.0-48.0) % MCV (80-98) fL MCH (27-31) pg MCHC (32-36) % Plt Count (150-400) K/uL Puncture Site ABG pH (7.350-7.450) ABG pCO2 (35.0-42.0) mmHg ABG pO2 (75.0-100.0) mmHg ABG HCO3 (22.0-26.0) mmol/L ABG Total CO2 (21.0-25.0) mmol/L ABG O2 Saturation (95.0-98.0) % ABG O2 Content (15.0-23.0) %vol ABG Base Excess mm/L ABG Hemoglobin (12.0-16.0) g/dL ABG Oxyhemoglobin % ABG Carboxyhemoglobin (0.0-1.6) % ABG Methemoglobin % O2 Delivery Device Oxygen Flow Rate L Sodium (140-148) mmol/L Potassium (3.6-5.2) mmol/L Chloride (100-108) mmol/L Carbon Dioxide (21-32) mmol/L Anion Gap (5.0-14.0) mmol/L BUN (7-18) mg/dL Creatinine (0.6-1.0) mg/dL Est Cr Clr Drug Dosing mL/min Estimated GFR (MDRD) (>60) Glucose (74-106) mg/dL Calcium (8.5-10.1) mg/dL Phosphorus (2.5-4.9) mg/dL Magnesium (1.8-2.4) mg/dL Total Bilirubin (0.2-1.0) mg/dL AST (15-37) U/L ALT (12-78) U/L Alkaline Phosphatase (46-116) U/L NT-Pro-B Natriuret Pep 6054 H (5-125) pg/mL Total Protein (6.4-8.2) g/dL Albumin (3.4-5.0) g/dL Globulin (2.3-3.5) g/dL Albumin/Globulin Ratio (1.2-2.2) Urine Color Urine Appearance Urine pH (4.5-8.0) Ur Specific [place] (1.008-1.030) Urine Protein (NEGATIVE) mg/dL Urine Glucose (UA) (NEGATIVE) mg/dL Urine Ketones (NEGATIVE) mg/dL Urine Occult Blood (NEGATIVE) Urine Nitrite (NEGATIVE) Urine Bilirubin (NEGATIVE) Urine Urobilinogen (NORMAL) mg/dL Ur Leukocyte Esterase (NEGATIVE) Urine RBC (0-5) Urine WBC (0-5) Ur Epithelial Cells Amorphous Sediment Urine Bacteria Urine Mucus Blood Type Gel Antibody Screen Crossmatch David Results Last 24 Hours: Microbiology 11/29/16 21:20 Gram Stain - Final Nasopharynx, Left Med Orders - Current: Current Medications Acetylcysteine (Mucomyst 20%) 200 mg INH BIDRT [facility] Last Admin: 11/30/16 07:02 Dose: 200 mg Albuterol/Ipratropium (Duoneb 3.0-0.5 Mg/3 Ml) 3 ml INH QIDRT [facility] Last Admin: 11/30/16 07:02 Dose: 3 ml Albuterol/Ipratropium (Duoneb 3.0-0.5 Mg/3 Ml) 3 ml INH ASDIRECTED PRN PRN Reason: Shortness of Breath Aspirin (Halfprin) 81 mg PO DAILY [facility] Last Admin: 11/30/16 08:43 Dose: Not Given Bumetanide (Bumex) 1 mg IVPUSH Q8H [facility] Last Admin: 11/30/16 07:54 Dose: 1 mg Dextrose (Glutose 15) 15 gm PO ASDIRECTED PRN PRN Reason: HYPOGLYCEMIA Dextrose/Water (Dextrose 50% In Water) 50 ml IVPUSH ASDIRECTED PRN PRN Reason: HYPOGLYCEMIA Diphenhydramine HCl (Benadryl) 25 mg IVPUSH Q6H PRN PRN Reason: ITCHING Last Admin: 11/27/16 17:52 Dose: 25 mg Docusate Sodium (Colace) 100 mg PO BID [facility] Last Admin: 11/30/16 08:43 Dose: Not Given Glucagon (Glucagen) 1 mg IM ASDIRECTED PRN PRN Reason: HYPOGLYCEMIA Haloperidol Lactate (Haldol) 1 mg IVPUSH Q1H PRN PRN Reason: Agitation Last Admin: 11/29/16 19:32 Dose: 1 mg Fentanyl 2,500 mcg/ Sodium (Chloride) 250 mls @ 0 mls/hr EP[facility]UR TITRATE [facility]; Titrate PRN Reason: Protocol Last Admin: 11/30/16 05:25 Dose: 8 mls/hr, 8 mls/hr Heparin Sodium (Porcine) 5,000 (units/ Sodium Chloride) 501 mls @ 1 mls/hr IV ASDIRECTED [facility] Last Admin: 11/28/16 14:32 Dose: 1 mls/hr Heparin Sodium (Porcine) 5,000 (units/ Sodium Chloride) 501 mls @ 1 mls/hr IV ASDIRECTED [facility] Last Admin: 11/28/16 14:32 Dose: 1 mls/hr Sodium Chloride (Normal Saline) 1,000 mls @ 25 mls/hr IV ASDIRECTED [facility] Last Admin: 11/30/16 05:00 Dose: 25 mls/hr Linezolid 600 mg/ Premix 300 mls @ 300 mls/hr IV Q12H [facility] Last Admin: 11/29/16 22:50 Dose: 300 mls/hr Acetaminophen 1,000 mg/ Premix 100 mls @ 400 mls/hr IV Q6H [facility] Stop: 11/30/16 20:46 Last Admin: 11/30/16 08:57 Dose: 400 mls/hr Piperacillin/Tazobactam/ (Dextrose 3.375 gm/ Premix) 50 mls @ 100 mls/hr IV Q6H [facility] Last Admin: 11/30/16 06:12 Dose: Not Given Levofloxacin/Dextrose 750 mg/ (Premix) 150 mls @ 150 mls/hr IV Q48H [facility] Potassium Chloride 40 meq/ (Premix) 100 mls @ 25 mls/hr IV ONETIME ONE Stop: 11/30/16 11:59 Potassium Chloride 20 meq/ (Premix) 100 mls @ 50 mls/hr IV ONETIME ONE Stop: 11/30/16 13:59 Naloxone HCl 0.4 mg/ Dextrose/ (Sodium Chloride) 1,001 mls @ 25 mls/hr IV ASDIRECTED [facility] Insulin Aspart (Novolog) 0 unit SUBCUT Q6H PRN; Protocol PRN Reason: MEDIUM CORRECTIONAL DOSE Last Admin: 11/30/16 07:52 Dose: 3 units Levothyroxine Sodium 100 mcg/ (Levothyroxine Sodium 25 mcg) 125 mcg PO ACBREAKFAST [facility] Last Admin: 11/30/16 07:32 Dose: Not Given Lorazepam (Ativan) 0.5 mg IVPUSH Q2H PRN PRN Reason: Anxiety Last Admin: 11/29/16 19:33 Dose: 0.5 mg Naloxone HCl (Narcan) 0.1 mg IVPUSH Q5M PRN PRN Reason: RESP RATE LESS THAN 6/MINUTE Ondansetron HCl (Zofran) 4 mg IV Q4H PRN PRN Reason: N/V Last Admin: 11/26/16 17:53 Dose: 4 mg Pantoprazole Sodium (Protonix Iv) 40 mg IV Q24H [facility] Last Admin: 11/29/16 15:29 Dose: 40 mg Advair 100/50 (Inhaler (Ptom)) 0 each INH BIDRT [facility] Last Admin: 11/30/16 07:02 Dose: Not Given Senna/Docusate Sodium (Senna Plus) 2 tab PO DAILY [facility] Last Admin: 11/30/16 08:44 Dose: Not Given Sotalol HCl (Betapace) 80 mg PO BID [facility] Last Admin: 11/30/16 08:41 Dose: Not Given Spironolactone (Aldactone) 25 mg PO BEDTIME [facility] Last Admin: 11/29/16 21:40 Dose: Not Given Venlafaxine HCl (Effexor Xr) 75 mg PO DAILY [facility] Last Admin: 11/30/16 08:43 Dose: Not Given Discontinued Medications Albuterol (Proventil Neb Soln) Confirm Administered Dose 2.5 mg .ROUTE .STK-MED ONE Stop: 11/25/16 07:56 Last Admin: 11/25/16 08:03 Dose: 2.5 mg Albuterol/Ipratropium (Duoneb 3.0-0.5 Mg/3 Ml) 3 ml NEB ONETIME ONE Stop: 11/25/16 10:01 Last Admin: 11/25/16 09:00 Dose: 3 ml Amitriptyline HCl (Elavil) 50 mg PO BEDTIME [facility] Last Admin: 11/26/16 20:54 Dose: 50 mg Bumetanide (Bumex) 1 mg IVPUSH ONETIME ONE Stop: 11/26/16 17:21 Last Admin: 11/26/16 17:49 Dose: 1 mg Bumetanide (Bumex) 1 mg IVPUSH Q12H [facility] Stop: 11/27/16 20:01 Last Admin: 11/27/16 08:05 Dose: 1 mg Bumetanide (Bumex) 2 mg IVPUSH ONETIME ONE Stop: 11/27/16 15:01 Last Admin: 11/27/16 14:58 Dose: 2 mg Bumetanide (Bumex) 1 mg IV Q12H [facility] Stop: 11/28/16 20:01 Last Admin: 11/28/16 19:56 Dose: 1 mg Bumetanide (Bumex) 1 mg IV Q8H [facility] Stop: 11/30/16 00:01 Last Admin: 11/30/16 00:09 Dose: 1 mg Bupivacaine HCl/Epinephrine Bitart (Marcaine 0.5%/Epinephrine 1:200,000) Confirm Administered Dose 50 ml .ROUTE .STK-MED ONE Stop: 11/25/16 12:04 Bupivacaine HCl/Epinephrine Bitart (Marcaine 0.5%/Epinephrine 1:200,000) 18 ml INJECT .STK-MED ONE Stop: 11/25/16 12:01 Last Admin: 11/25/16 12:00 Dose: 18 ml Carvedilol (Coreg) 6.25 mg PO BID [facility] Last Admin: 11/26/16 15:15 Dose: 6.25 mg Dexamethasone (Dexamethasone) Confirm Administered Dose 4 mg .ROUTE .STK-MED ONE Stop: 11/25/16 07:45 Enalapril Maleate (Vasotec) 2.5 mg PO BEDTIME [facility] Last Admin: 11/26/16 20:54 Dose: 2.5 mg Fentanyl Citrate (Fentanyl) Confirm Administered Dose 500 mcg .ROUTE .STK-MED ONE Stop: 11/25/16 07:45 Gabapentin (Neurontin) 100 mg PO ONETIME ONE Stop: 11/25/16 07:46 Last Admin: 11/25/16 08:33 Dose: 100 mg Gabapentin (Neurontin) 100 mg PO BEDTIME [facility] Last Admin: 11/26/16 20:54 Dose: 100 mg Glycopyrrolate (Robinul) Confirm Administered Dose 1 mg .ROUTE .STK-MED ONE Stop: 11/25/16 07:45 Haloperidol Lactate (Haldol) 2 mg IVPUSH Q1H PRN PRN Reason: Agitation Heparin Sodium (Porcine) (Heparin Sodium) Confirm Administered Dose 5,000 units .ROUTE .STK-MED ONE Stop: 11/25/16 07:46 Heparin Sodium (Porcine) (Heparin Lock Flush 100 Units/Ml) Confirm Administered Dose 1,000 units .ROUTE .STK-MED ONE Stop: 11/25/16 08:51 Dextrose/Lactated Ringer's (Dextrose 5%-Lactated Ringers) 1,000 mls @ 100 mls/ hr IV ASDIRECTED [facility] Levofloxacin/Dextrose 500 mg/ (Premix) 100 mls @ 100 mls/hr IV ONETIME ONE Stop: 11/25/16 10:59 Last Admin: 11/25/16 10:00 Dose: 100 mls/hr Lidocaine HCl (Xylocaine-Mpf 1%) Confirm Administered Dose 2 mls @ as directed .ROUTE .STK-MED ONE Stop: 11/25/16 07:46 Dextrose/Sodium Chloride (Dextrose 5%-Normal Saline) 1,000 mls @ 100 mls/hr IV ASDIRECTED [facility] Lactated Ringer's (Ringers, Lactated) Confirm Administered Dose 1,000 mls @ as directed .ROUTE .STK-MED ONE Stop: 11/25/16 09:24 Sodium Chloride (Normal Saline) Confirm Administered Dose 10 mls @ as directed .ROUTE .STK-MED ONE Stop: 11/25/16 12:04 Naloxone HCl 0.4 mg/ Dextrose/ (Sodium Chloride) 1,001 mls @ 100 mls/hr IV ASDIRECTED [facility] Last Admin: 11/29/16 12:18 Dose: 100 mls/hr Sodium Chloride (Normal Saline) 1,000 mls @ 75 mls/hr IV ASDIRECTED [facility] Last Admin: 11/26/16 16:32 Dose: 75 mls/hr Levofloxacin/Dextrose 500 mg/ (Premix) 100 mls @ 100 mls/hr IV Q24H [facility] Last Admin: 11/29/16 10:00 Dose: 100 mls/hr Lactated Ringer's (Ringers, Lactated) 500 mls @ 500 mls/hr IV .BOLUS [facility] Stop: 11/25/16 18:15 Last Admin: 11/25/16 17:15 Dose: 500 mls/hr Magnesium Sulfate 2 gm/ Premix 50 mls @ 25 mls/hr IV Q6H [facility] Stop: 11/28/16 05:59 Last Admin: 11/28/16 04:03 Dose: 25 mls/hr Lactated Ringer's (Ringers, Lactated) 500 mls @ 500 mls/hr IV .BOLUS [facility] Stop: 11/26/16 10:01 Last Admin: 11/26/16 09:15 Dose: 500 mls/hr Lactated Ringer's (Ringers, Lactated) 500 mls @ 500 mls/hr IV .BOLUS [facility] Last Admin: 11/26/16 13:36 Dose: 500 mls/hr Dextrose/Sodium Chloride (Dextrose 5%-Normal Saline) 1,000 mls @ 75 mls/hr IV ASDIRECTED [facility] Last Admin: 11/28/16 08:46 Dose: 75 mls/hr Sodium Chloride (Normal Saline) 1,000 mls @ 25 mls/hr IV ASDIRECTED [facility] Last Admin: 11/28/16 08:45 Dose: 25 mls/hr Acetaminophen 1,000 mg/ Premix 100 mls @ 400 mls/hr IV Q6H [facility] Stop: 11/29/16 10:01 Last Admin: 11/29/16 10:00 Dose: 400 mls/hr Potassium Phosphate 20 mmole/ (Sodium Chloride) 156.6667 mls @ 52 mls/hr IV Q3H [facility] Stop: 11/29/16 16:59 Last Admin: 11/29/16 14:36 Dose: 52 mls/hr Piperacillin Sod/Tazobactam (Sod 3.375 gm/ Sodium Chloride) 50 mls @ 100 mls/ hr IV Q6H [facility] Last Admin: 11/30/16 04:59 Dose: 100 mls/hr Piperacillin Sod/Tazobactam (Sod 2.25 gm/ Sodium Chloride) 50 mls @ 100 mls/hr IV Q6H [facility] Sodium Chloride (Normal Saline) Confirm Administered Dose 50 mls @ as directed .ROUTE .STK-MED ONE Stop: 11/29/16 22:16 Last Admin: 11/29/16 22:32 Dose: Not Given Sodium Chloride (Normal Saline) Confirm Administered Dose 50 mls @ as directed .ROUTE .STK-MED ONE Stop: 11/30/16 03:28 Last Admin: 11/30/16 05:21 Dose: Not Given Insulin Aspart (Novolog) 3 unit SUBCUT ONETIME [facility] Last Admin: 11/25/16 12:48 Dose: 3 units Insulin Detemir (Levemir) 30 unit SUBCUT ONETIME ONE Stop: 11/25/16 21:01 Last Admin: 11/25/16 21:00 Dose: 30 units Lidocaine HCl (Xylocaine 2% Viscous) Confirm Administered Dose 15 ml .ROUTE .STK -MED ONE Stop: 11/25/16 09:50 Lorazepam (Ativan) 0.5 - 1 mg IVPUSH Q4H PRN PRN Reason: Anxiety Last Admin: 11/27/16 15:30 Dose: 1 mg Lorazepam (Ativan) 1 - 2 mg IVPUSH Q1H PRN PRN Reason: Anxiety Last Admin: 11/29/16 10:10 Dose: 2 mg Meropenem (Merrem) 500 mg IRR .STK-MED ONE Stop: 11/25/16 11:41 Last Admin: 11/25/16 11:40 Dose: 500 mg Meropenem (Merrem) Confirm Administered Dose 500 mg .ROUTE .STK-MED ONE Stop: 11/25/16 12:04 Neostigmine Methylsulfate (Neostigmine) Confirm Administered Dose 5 mg .ROUTE .STK-MED ONE Stop: 11/25/16 07:45 Verify Scop Patch 0 each TOP DAILY [facility] Last Admin: 11/27/16 08:19 Dose: Not Given Ondansetron HCl (Zofran) Confirm Administered Dose 4 mg .ROUTE .STK-MED ONE Stop: 11/25/16 07:45 Propofol (Diprivan 20 Ml) Confirm Administered Dose 200 mg .ROUTE .STK-MED ONE Stop: 11/25/16 07:45 Rocuronium [place] (Zemuron) Confirm Administered Dose 50 mg .ROUTE .STK-MED ONE Stop: 11/25/16 07:45 Scopolamine (Transderm-Scop) 1.5 mg TOP Q72H [facility] Stop: 11/28/16 03:00 Last Admin: 11/25/16 09:00 Dose: 1.5 mg Succinylcholine Chloride (Quelicin) Confirm Administered Dose 200 mg .ROUTE .STK -MED ONE Stop: 11/25/16 07:45 - Exam General: Alert, Lethargic Lungs: Normal Respiratory Effort (With BiPAP), Rhonchi, Wheezing Cardiovascular: Regular Rhythm, No Murmurs, Tachycardia GI/Abdominal Exam: Soft, Non-Tender Extremities: Pedal Edema Skin: Warm, Dry Consult PN Assessment/Plan Procedures: Procedures AIRWAY INHALATION TREATMENT (02/11/16) ASSAY OF CK (CPK) (01/27/16) ASSAY OF LACTIC ACID (01/27/16) ASSAY OF NATRIURETIC PEPTIDE (08/15/16) ASSAY OF TROPONIN QUANT (08/15/16) BLOOD CULTURE FOR BACTERIA (01/27/16) C-REACTIVE PROTEIN (01/27/16) CATARACT SURG W/IOL 1 STAGE (10/22/15) CHEST X-RAY 2VW FRONTAL&LATL (08/15/16) CINE/VID X-RAY THROAT/ESOPH (12/10/14) COMPLETE CBC W/AUTO DIFF WBC (08/15/16) COMPREHEN METABOLIC PANEL (08/15/16) CT ABDOMEN W/DYE (11/24/16) CT ANGIOGRAPHY CHEST (08/05/15) CT THORAX W/DYE (11/24/16) CULTURE SCREEN ONLY (12/05/14) EGD BIOPSY SINGLE/MULTIPLE (12/05/14) ELECTROCARDIOGRAM TRACING (08/15/16) EMERGENCY DEPT VISIT (08/15/16) EMERGENCY DEPT VISIT (02/11/16) EMERGENCY DEPT VISIT (01/27/16) EMERGENCY DEPT VISIT (07/23/14) EMERGENCY DEPT VISIT (07/23/14) EMERGENCY DEPT VISIT (02/01/14) EMERGENCY DEPT VISIT (11/17/13) EMERGENCY DEPT VISIT (11/17/13) FIBRIN DEGRADATION QUANT (08/05/15) GLUCOSE BLOOD TEST (01/27/16) METABOLIC PANEL TOTAL CA (01/27/16) MOTION FLUOROSCOPY/SWALLOW (12/10/14) ROUTINE VENIPUNCTURE (08/15/16) THER/PROPH/DIAG IV INF ADDON (01/27/16) THER/PROPH/DIAG IV INF INIT (01/27/16) TTE W/DOPPLER COMPLETE (02/12/15) URINALYSIS AUTO W/SCOPE (01/27/16) URINE CULTURE/COLONY COUNT (01/27/16) Problem List Initiated/Reviewed/Updated: Yes My Orders Last 24 Hours: My Active Orders 11/29/16 10:15 Haloperidol Lactate [Haldol] 1 mg IVPUSH Q1H PRN LORazepam [Ativan] 0.5 mg IVPUSH Q2H PRN 11/29/16 10:30 Sodium Chloride 0.9% [Normal Saline] 1,000 ml IV ASDIRECTED Plan: ASSESSMENT AND PLAN - 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 Mckeon Hypoxic and hypercapnic respiratory failure- likely multifactorial with pulmonary edema and probable hypoventilation related to pain medication and recent surgery. Now complicated by probable pneumonia with temperature elevation and recurrent tachycardia. -Cardiac monitoring -1 mg of bumetanide 3 times daily -Continue current antibiotic therapy with Zyvox, Zosyn, and levofloxacin pending culture results -Solu-Medrol 40 mg IV every 6 hours -Continue medical management -Supplement oxygen -Intake and output monitoring COPD - no evidence for acute exacerbation at this time. -Continue current respiratory treatments Insulin-dependent diabetes - sugars have been tolerable so far. -Continue current management
[2016-11-30] MEDS: methylPREDNISolone Sodium Succinate 40 MG/1 ML SDV IVPUSH SCH ×3 (10:50→22:41)
[2016-11-30] MEDS ORDERED: Potassium Chloride 20 MEQ in Premix Bag 1 BAG IV ONE (12:00)
[2016-11-30] MEDS ORDERED: NALOXONE IV SCH (14:00)
[2016-11-30] MEDS ORDERED: Levofloxacin/Dextrose 5%-Water 750 MG in Premix Bag 1 BAG IV SCH (14:00)
[2016-11-30] MEDS ORDERED: DEXTROSE IV SCH (14:00)
[2016-11-30] MEDS ORDERED: NACL IV SCH (14:00)
[2016-11-30] MEDS ORDERED: Bumetanide 1 MG/4 ML MDV IVPUSH ONE (14:30)
[2016-11-30] MEDS ORDERED: Lactated Ringers 500 ML IV SCH (15:30)
[2016-11-30] MEDS: Pantoprazole 40 MG Vial IV SCH (16:09)
[2016-11-30] MEDS ORDERED: Lactated Ringers 500 ML IV ONE (16:30)
[2016-11-30] MEDS ORDERED: Lactated Ringers 1,000 ML IV ONE (19:45)
[2016-11-30] MEDS: Spironolactone 25 MG Tab PO SCH (20:10)
[2016-11-30] MEDS: Norepinephrine 4 MG in Dextrose 5% in Water 246 ML IV SCH ×2 (20:20)
[2016-12-01] MEDS: Bumetanide 1 MG/4 ML MDV IVPUSH SCH ×2 (00:18→08:22)
[2016-12-01] MEDS ORDERED: Vasopressin 100 UNITS in Dextrose 5% in Water 250 ML IV SCH ×2 (03:45)
[2016-12-01] MEDS: methylPREDNISolone Sodium Succinate 40 MG/1 ML SDV IVPUSH SCH (03:58)
[2016-12-01] MEDS ORDERED: Vasopressin 20 Units/1 ML MDV ONE (04:02)
[2016-12-01] MEDS: Piperacillin/Tazobactam/Dext 3.375 GM in Premix Bag 1 BAG IV SCH (05:55)
[2016-12-01] MEDS: Norepinephrine 4 MG in Dextrose 5% in Water 246 ML IV SCH ×2 (06:34)
[2016-12-01] MEDS: Albuterol/Ipratropium 3.0-0.5 MG/3 ML Neb Soln INH SCH (07:23)
[2016-12-01] MEDS: ADVAIR INH SCH (07:24)
[2016-12-01] MEDS: Acetylcysteine 20% 200 MG/ML 4 ML Nebulizer Soln SDV INH SCH (07:25)
[2016-12-01 07:53] VITALS: BP 105/52
[2016-12-01] MEDS: Levothyroxine 100 MCG, Levothyroxine 25 MCG PO SCH ×2 (07:57)
[2016-12-01] MEDS: Docusate Sodium 100 MG Cap PO SCH (08:22)
[2016-12-01] MEDS: Sotalol 80 MG Tab PO SCH (08:22)
[2016-12-01] MEDS: Aspirin 81 MG Tab.EC PO SCH (08:23)
[2016-12-01] MEDS: Venlafaxine 75 MG Cap.ER PO SCH (08:23)
[2016-12-01] MEDS: Linezolid 600 MG in Premix Bag 1 BAG IV SCH (08:29)
[2016-12-01] MEDS ORDERED: Morphine 2 MG/ML Syringe IVPUSH PRN (08:47)
--- NOTE | 2016-12-01 10:58 | OR ---
DATE OF PROCEDURE: 11/25/2016 PREOPERATIVE DIAGNOSIS: Probable carcinoma, right upper lobe. POSTOPERATIVE DIAGNOSIS: Non-small cell carcinoma, right upper lobe per frozen section. OPERATIVE PROCEDURE: 1. Flexible bronchoscopy with tracheobronchial washings for culture (08571). 2. Insertion of right subclavian vein triple-lumen catheter (36808). 3. Right lateral thoracotomy with: a. Right upper lobectomy with wedge resection of adherent right upper lobe (71489, 26394). b. Mediastinal lymph node dissection, (42898). ANESTHESIA: General plus epidural. LINOLEUM LAYER HELPER: Elizabeth Mahajan PA-C and LAURENCE Sy. INDICATION FOR PROCEDURE: This is a 75-year-old female, who was noted last January to have a lung carcinoma. Initially, she felt that she did not have any specific treatment for that. Over time, she is now presenting with a desire to consider treatment for the mass. The patient is clearly a very high risk patient in terms of predominantly cardiovascular status. The patient has a last reported ejection fraction in the 30% to 35% range with cardiomyopathy and an implantable defibrillator present. The most recent Cardiology consult, however, reports things being fairly stable, and clinically the patient is not short of breath at all at rest. There is no peripheral edema, and clinically she appears to be reasonably well compensated from a cardiovascular standpoint. Her pulmonary function tests likewise were satisfactory this morning. A discussion was held with the patient's son and the patient, and at this point, they wish to proceed with a resective procedure. It was initially felt this might be something we would do thoracoscopically, but reviewing the size of the mass, it would be more reasonable to proceed with a lateral thoracotomy. We will also initially perform a bronchoscopy to rule out any concurrent more proximal lesions, and for facilitation of patient care, a right subclavian triple-lumen catheter will be placed (the patient's pacemaker and defibrillator system comes in from the left). Potential risks of the procedure were reviewed once again this morning with the patient, including bleeding, infection, possible local or distant tumor recurrence, possibility of needing temporary ventilatory support, and the possibly of cardiopulmonary, septic, or hemorrhagic complications leading to were discussed. Overall, operative mortality of around 8% was quoted to the patient's son and the patient earlier this week. DETAILS OF PROCEDURE: The patient was taken to the operating room and placed in a sitting position, and initially epidural catheter, along with arterial line, were then placed. Following this, initially endotracheal anesthetic with a single-lumen tube was initiated, and the flexible bronchoscope was passed through the endotracheal tube. The visualized trachea and bronchial tree on both the right and left sides were all completely normal. There were essentially no secretions present. Small amount of saline was injected to obtain washing to get a baseline sputum culture, and the scope was then withdrawn. The right subclavian vein triple-lumen catheter was then placed without difficulty, using standard technique, and was sutured to the skin with some 3-0 silk stitch and flushed with heparinized saline. Subsequent x-ray showed the catheter tip to be within the superior vena cava. Following this then, the patient was placed in a left lateral decubitus position. Triplett catheter had been inserted, and the right chest and surrounding areas were prepped and draped. A lateral thoracotomy was then undertaken and carried down through the skin and subcutaneous tissue and musculature. The 5th interspace was then entered, and upon entrance into that area, the general exploration was undertaken. The patient was noted to have the large mass involving the right upper lobe. There was some adherence to the superior segment of the lower lobe as well, and it was felt that wedge resection of the lower lobe would be required to obtain a reasonably clear margin in that region. There was no gross lymphadenopathy within the hilum or mediastinum, and there was no pleural fluid or evidence of pleural seeding by tumor. At that point, a decision was made to proceed with resection. Initially, the major fissure was developed with a WILDA stapler. Following this, a wedge resection of the superior segment of the lower lobe was taken down to the hilum. This then allowed further dissection on the anterior aspect of the hilum of the lung. The brachial artery branch, the upper vein branch, and the bronchus were sequentially encircled and then stapled with a WILDA staple loads. Some remaining attachments were then divided, and the specimen consisting of right upper lobe and attached wedge resection of the lower lobe was delivered from the field. Frozen section revealed close margins in one of the parenchymal staple lines, but otherwise appeared to be clear and the tumor was felt to be a non-small cell carcinoma with the pathologist leaning toward a squamous cell carcinoma. At this point, the pleura over the hilum toward the right mainstem bronchus and tracheobronchial angle and then peritracheal area was incised and those nodes sequentially excised. None of these were enlarged. The nodes in the hilum were somewhat more fleshy certainly, although not more in size than 0.5 cm, and might contain some metastatic tumor. Otherwise, there is no additional lymphadenopathy present. At this point, fibrin sealant was placed across the vascular and bronchial closures. A 32- [place] straight chest tube was then placed laterally and superiorly, and then a 36-[place] right-angle chest tube was then placed and positioned posteriorly. The chest tubes were sutured to skin with some 2-0 Ethibond stitch. Following this, the approximation sutures with a #2 Vicryl stitch were placed, and the musculature was then closed with 2 layers of 2- 0 Vicryl stitch. Subcutaneous tissue was approximated some 4-0 Vicryl stitch and the skin with priscila. The patient was ultimately extubated and appeared to maintain good respiratory status, as well as hemodynamics, in the immediate postoperative period and was transferred to the recovery room in satisfactory condition. Physician regional administrative assistant, Elizabeth Mahajan, played an essential role in assisting in this case, helping to position the patient, retract structures as needed, as well as suturing and cutting sutures and stapling when indicated. Her presence improved the patient safety and decreased the operative time. Stanislaw Mckeon MD /[id number]
--- NOTE | 2016-12-01 12:30 | PN ---
DATE OF SERVICE: 11/30/2016 Overnight, the patient has developed more in the way of fever. Temperature presently is 100.4, but did get up to 102.1. We obtained blood and sputum cultures, along with a UA and urine C and S. The UA does have some nitrites, and the sputum has some gram-positive cocci. Blood culture thus far has not recorded any growth. My suspicion we are most likely dealing with some sort of pulmonary issue. She was empirically started on Zyvox and Zosyn, in addition to present Levaquin. We will continue those pending cultures. The patient is less arousable. This, I suspect, may be related to the emergence of some infection, but also primarily related to accumulation of Ativan used for the sedation. Hemodynamically, she remains stable with heart rate in the 100s. Her CVP is running in the mid teens, which is somewhat higher than baseline, but she did diurese over 1300 mL net yesterday, which would give her an I and O of around 2 L negative, given non-measured losses. Chest tube was potentially plugged last night but is functioning now and has put 350 mL out. Chest x-ray looks roughly status quo. There are no obvious infiltrates present. Blood gases this morning on 40% BiPAP shows pH of 7.25, pCO2 of 67, and pO2 of 75. Her creatinine is up a little bit at 1.2. This may reflect some of the diuresis, as well as some possible increasing renal insufficiency. Overall, the prognosis appears relatively poor. We will continue the present care with the current antibiotics being initiated and continue the BiPAP. We will talk to Anesthesia regarding the use of the epidural catheter. She is postop day 5 now, and it probably needs to come out and just go over to [employer] for pain. We initiated IV Tylenol at this point overnight, which does seem to be helpful with regard to pain control as well. Stanislaw Mckeon MD /[id number]
--- NOTE | 2016-12-08 11:10 | DISCH ---
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 SECONDARY DIAGNOSES: 1. Chronic obstructive pulmonary disease. 2. Compensated congestive heart failure. 3. secondary to postoperative pneumonia. 4. Type 2 diabetes mellitus. OPERATIVE PROCEDURE: This was done on 11/25/2016, a right lateral thoracotomy with right upper lobectomy with wedge resection adjacent to right lower lobe and mediastinal lymph node dissection. Then, also on that day, just prior to the same procedure, flexible bronchoscopy and also then insertion of right subclavian vein triple-lumen catheter. SUMMARY: The patient was noted initially to have what appeared to be a lung carcinoma of the right upper lobe last January. Initially, she was felt not to be a surgical candidate. Over the spring, her ejection fraction improved from somewhere around 15% to 20% range to 30% to 35% range, and she was, therefore, referred at this time for reconsideration of potential surgical resection. At the time of initial evaluation, she appeared to be well compensated from congestive heart failure standpoint with there being no shortness of breath at rest, good oxygenation, and no signs of congestive heart failure clinically in terms of any edema or orthopnea. Preoperative PFTs likewise were satisfactory with the patient having some degree of underlying COPD. A lengthy discussion was held with the patient and one of her sons, along with Kendal Mojica, the PA student, who was working with us, and the option of attempting to resect this surgically versus not treating it was discussed. At the initial time of the diagnosis, the patient had told Dr. Jacobson that she did not want to have any treatment for this, but she appeared to have re-thought this. On examination, while the patient was felt to at high risk, it would be reasonable to attempt resecting this, as the other option would be leaving what is almost certainly perhaps an enlarging carcinoma, and in place, it would likely result in relatively near-term if left in place. After a lengthy discussion, knowing that there is a significant risk of perioperative , the patient and the son wished to proceed. The patient admitted on 11/25/2016, and underwent the above-listed procedures. The final pathology was that of a squamous cell carcinoma, measuring 6.4 cm with negative margins, and all of the resected lymph nodes were free of any metastatic disease. The patient had a central line placed to facilitate ongoing care, and initial flexible bronchoscopy did not show any additional pathology within the tracheobronchial tree. For the first two days postoperatively, the patient did exceedingly well. There was some mild CO2 retention, but that was actually improved to almost normal state by postop day one, and she was in good spirits and looked quite comfortable with adequate vital signs, urine output, and such for the first 24 hours. On Monday, with her surgery having been done the previous Monday, she was noted to have some upper respiratory secretions that she was having some difficulty clearing. Mucomyst was added to her DuoNebs, which appeared to work somewhat, and at that point, the discussion regarding possible endotracheal intubation was reviewed with the patient. At that point, she was completely lucid and the discussion regarding endotracheal intubation and mechanical ventilation was reviewed with her at that point. On the morning of surgery, that issue had been brought up, and it was reviewed that she may wake up needing to be ventilated somewhat and appeared to be okay with that concept at that point, but her living will says no mechanical ventilation, and again after discussion with Dr. Simmons and the family members, she did not want to have any mechanical ventilation or endotracheal intubation. She was therefore put on a BiPAP and initially did fairly well with that. She then, at that point, became quite confused and required some sedation in terms of Ativan to manage her on the BiPAP. The following Monday, she had developed an obvious pneumonia, having started with some fevers the evening before, and at that point, her clinical status rapidly deteriorated with her likely becoming fairly septic. On the morning of 11/30/2016, a discussion was held with 2 of the patient's sons, and at that point, they wished to withdraw treatment. At that point, that appeared to be an appropriate option, given her desire not to have more extensive critical care management, such as mechanical ventilation. Given this, the BiPAP was withdrawn, and the patient rapidly succumbed. No postmortem examination was undertaken. FINAL DIAGNOSIS: In terms of cause of would be postoperative pneumonia with secondary diagnoses including congestive heart failure, COPD, type 2 diabetes mellitus, and status post resection of lung carcinoma.
== END 2016-12-01 08:50 | disposition expired | DRG 163 ==
LOC: JP.SDS 07:31 → JP.ICU 12:30 → UNDOADMIN 13:30 → UNDODISIN 12-01 08:50
PROVIDERS: ADMIT Surgery; ATTEND Hospitalist
PROC: 02HV33Z Insertion of Infusion Device into Superior Vena Cava, Percutaneous Approach (ICD-10-PCS; principal; 2016-11-25)
PROC: 0BBC0ZX Excision of Right Upper Lung Lobe, Open Approach, Diagnostic (ICD-10-PCS; 2016-11-25)
PROC: 0BBC8ZX Excision of Right Upper Lung Lobe, Via Natural or Artificial Opening Endoscopic, Diagnostic (ICD-10-PCS; 2016-11-25)
PROC: 07T70ZZ Resection of Thorax Lymphatic, Open Approach (ICD-10-PCS; 2016-11-25)
DX: C34.90 Malignant neoplasm of unspecified part of unspecified bronchus or lung (principal); C34.11 Malignant neoplasm of upper lobe, right bronchus or lung; J96.92 Respiratory failure, unspecified with hypercapnia; J96.91 Respiratory failure, unspecified with hypoxia; R91.8 Other nonspecific abnormal finding of lung field; J18.9 Pneumonia, unspecified organism; I13.0 Hypertensive heart and chronic kidney disease with heart failure and stage 1 through stage 4 chronic kidney disease, or unspecified chronic kidney disease; I50.20 Unspecified systolic (congestive) heart failure; I42.9 Cardiomyopathy, unspecified; E87.2 Acidosis; I10 Essential (primary) hypertension; Z87.891 Personal history of nicotine dependence; E11.40 Type 2 diabetes mellitus with diabetic neuropathy, unspecified; Z79.4 Long term (current) use of insulin; N18.9 Chronic kidney disease, unspecified; E11.22 Type 2 diabetes mellitus with diabetic chronic kidney disease; E03.9 Hypothyroidism, unspecified; I25.2 Old myocardial infarction; I25.10 Atherosclerotic heart disease of native coronary artery without angina pectoris; K21.9 Gastro-esophageal reflux disease without esophagitis; E78.5 Hyperlipidemia, unspecified; G47.30 Sleep apnea, unspecified; Z99.81 Dependence on supplemental oxygen; Z87.01 Personal history of pneumonia (recurrent); H91.90 Unspecified hearing loss, unspecified ear; Z95.5 Presence of coronary angioplasty implant and graft; M19.90 Unspecified osteoarthritis, unspecified site; M54.9 Dorsalgia, unspecified; G89.29 Other chronic pain; Z66 Do not resuscitate; R41.0 Disorientation, unspecified; R50.9 Fever, unspecified; R00.0 Tachycardia, unspecified; Z79.82 Long term (current) use of aspirin; Z88.1 Allergy status to other antibiotic agents; Z88.8 Allergy status to other drugs, medicaments and biological substances; Z95.810 Presence of automatic (implantable) cardiac defibrillator; M25.511 Pain in right shoulder; J44.9 Chronic obstructive pulmonary disease, unspecified; R91.1 Solitary pulmonary nodule; K80.20 Calculus of gallbladder without cholecystitis without obstruction; I71.4 Abdominal aortic aneurysm, without rupture
CPT/HCPCS: 31622; 32480; 36415 ×2; 36556; 38746; 71010 ×2; 71260 ×2; 74160 ×2; 80048; 82803; 82962; 83735; 83880; 84100; 86850; 86900; 86901; 87070; 87102; 87205; 87220; 88305; 88309; 88313; 88331; 88332; 88342; 93005; 94060; A9270 ×4; J0330; J1100; J1642; J1644; J1956; J2185 ×2; J2405; J2704; J2710; J3010; J7030; J7050; J7120; J7620; Q9967; 36600; 80053; 81001; 84132; 85027; 86920; 86922; 87040; 87086; 87088; 87186; 94640; 94640-76; 94660; C9113; J0131; J1200; J1630; J2020; J2060; J2310; J2543; J2920; J3475; J3480; J3490; J7040; J7060; S0171